=== PATIENT | female | born 1940 | race Caucasian/White ===

== ENCOUNTER 2023-12-31 15:20 | Inpatient (IN) ==
--- NOTE | 2023-12-31 15:51 | XRay Report ---
SINGLE VIEW CHEST CLINICAL HISTORY: Generalized weakness. FINDINGS: An AP, portable, upright chest radiograph is compared to study dated 04/18/2023. The cardiom ediastinal silhouette is unremarkable noting atherosclerotic calcification of the thoracic aorta. Chr onic interstitial thickening is similar to previous. There is mild bibasilar scarring/atelectasis. Th e lungs and pleural spaces are otherwise clear. No pneumothorax is seen. The skeletal structures are osteopenic. The bony thorax is grossly intact. Cholecystectomy clips are seen in the right upper quad rant. IMPRESSION: No active disease in the chest. ACT 112: Negative or not required by law. Electronically signed by: Shawn Lewis M.D. 12/31/2023 3:50 PM
--- NOTE | 2023-12-31 15:56 | Emergency Department Note ---
Impression & Plan Syncope and collapse, Acute UTI, Confusion, Closed sacral fracture ED Provider Note Provider: Bunny Pineda MD DATE OF SERVICE: 12/31/2023 CHIEF COMPLAINT: Confusion, vomiting, fall HISTORY OF PRESENT ILLNESS: Patient is a 83-year-old female past medical history of diabetes and hypertension from records presenting here via ambulance from home. Patient herself unable provide any significant history. She says she just cannot remember much and thinks she might be . Denies pain to me on exam. Nursing reports EMS states that the patient evidently called and he came home as she sounded confused on the phone and found her on the floor. She had vomited. Patient denies nausea to me currently. Nursing states they initially reports a little bit of chin pain and some pain in the tailbone. Patient herself again denying pain significantly needed some slight abrasion to the left lower chin. later arrived and states around 1:30 to 2 PM when he left her this afternoon she was playing on her iPad at the counter and seemed herself. Maybe get anxious last night according to no significant illness or complaints otherwise. Again she called him and he noted she was not making sense and came quickly to find. EMS was quickly there as well. PAST MEDICAL HISTORY: As noted above MEDICATIONS: Reviewed acute SOCIAL HISTORY: and resides at home PHYSICAL EXAM: GENERAL: alert in no acute distress on stretcher but not a good historian Head: normocephalic and atraumatic does have some dried vomitus on the right cheek EYES: No injection, discharge or icterus. PERRL, EOMI. NECK: Trachea midline. Supple without midline cervical tenderness ENT: Mucous membranes pink and moist. LUNGS: Airway patent. No retractions. Breath sounds clear HEART: Regular rate and rhythm. No chest wall tenderness ABDOMEN: Soft and non-tender, without guarding or rebound. No flank pain SKIN: Acyanotic, warm, dry, without rashes EXTREMITIES: Without swelling, tenderness or deformity other than some contusion to the left middle finger. NEUROLOGICAL: No focal deficits. Occasionally a slight resting tremor. No aphasia. No facial droop or slurred speech. Normal strength and tone in the extremities. Sensation to gross touch normal. EK bpm normal sinus rhythm. No acute ST segment elevation or depression with a QTc of 452. Some artifact in V3 and V4. CONTINUOUS CARDIAC MONITORING: was ordered and showed a heart rate of 60s to 80s bpm in normal sinus rhythm GCS 15. Patient's laboratory studies and imaging reviewed. Differential includes Infection, dehydration, metabolic abnormality, hypo/hyperglycemia, electrolyte disturbance, anemia, hypoxia, cardiac sources, intracerebral event, toxicologic, neurologic, as well as other pathologies. IMPRESSION/MEDICAL DECISION MAKING: Patient not a good historian evidently suffered some kind of fall but no obvious significant trauma on exam other than a slight abrasion to left chin. No obvious facial instability or midline cervical tenderness. Will obtain broad CT scans given possibility of fall and her confusion. Patient is also newly confused according to . Afebrile here however and not in any distress. Seems to be moving all extremities without focal deficit. Some contusion and abrasion to the right middle finger and x-rays obtained. Will obtain head CT but lower suspicion for CVA. Infectious and metabolic workup will be pursued. Chest x-ray per radiology without findings of pneumothorax or pneumonia. 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 No evidence of hand fracture with subluxation of the TMJ but the patient does not have exam and pain here and I doubt fracture dislocation. Blood work without significant anemia but a leukocytosis of 15.2. No significant electrolyte and no signs of renal dysfunction. Procalcitonin not elevated. Straight cath urine obtained to exclude UTI. Urinalysis concerning for infection. Discussed with pharmacy given allergy profile. Given severe penicillin allergy & unable confirm she tolerate cephalosporins again a dose of Bactrim here. Discussed with the patient and they agree with the plan to stay for further evaluation given her confusion and syncope today. Hospitalist contacted. DIAGNOSIS: Confusion, syncope, acute UTI, close sacral fracture. DISPOSITION: Hospitalist will evaluate Past Med/Surg History Surgical History History of cholecystectomy Family History Mother Hearing loss Father Heart disease Other No family history of allergies No family history of bleeding disorder Denies family history of Cancer Hypertension Stroke Asthma Social History Smoking Status: Former smoker Tobacco Type: Cigarettes packs per day: 1; Do You Dip or Chew Tobacco: No; Hx Alcohol Use: No Hx Substance Use: No Preferred Language: Malian Communication Ability: Effective marital status: Current Living Situation: Spouse current occupational status: retired How many Children do You have: 2 Feels Safe at Home: Yes Allergies Allergies Allergy/AdvReac Type Severity Reaction Status Date / Time Penicillins Allergy Severe EDEMA OF Verified 12/31/23 18:04 AIRWAY, HIVES [id number] Reductase AdvReac Intermediate MUSCLE Verified 12/31/23 18:04 Inhibitor PAIN/CRAMPS Home Meds Home Medications Medication Instructions Recorded Confirmed metformin 1,000 mg tablet 1,000 mg PO BIDM 08/29/21 12/31/23 escitalopram oxalate 10 mg tablet 10 mg PO QAM 10/19/21 12/31/23 levothyroxine 50 mcg tablet 50 mcg PO DAILYBB 10/19/21 12/31/23 lisinopril 5 mg tablet 5 mg PO QAM 10/19/21 12/31/23 omeprazole 20 mg capsule,delayed 20 mg PO DAILYBB 10/19/21 12/31/23 release vitamins A,C,C-wxai-zppaem 2,148 2 tab PO QDL 10/19/21 12/31/23 mcg-113 mg-45 mg-17.4 mg tablet (PreserVision AREDS) repaglinide 2 mg tablet See Rx Instructions .Route .COMPLEX 04/18/23 12/31/23 diclofenac sodium 1 % topical gel 4 g topical BID PRN PAIN, AFFECTED 12/31/23 12/31/23 AREA dulaglutide 1.5 mg/0.5 mL 1.5 mg subcut WK 12/31/23 12/31/23 subcutaneous pen injector (Trulicity) insulin degludec 100 unit/mL (3 28 unit subcut QAM 12/31/23 12/31/23 mL) subcutaneous pen (Tresiba FlexTouch U-100 insulin) lorazepam 0.5 mg tablet 0.5 mg PO BID ANXIETY 12/31/23 12/31/23 nitroglycerin 0.4 mg sublingual 0.4 mg sublingual DIRECTED PRN 12/31/23 12/31/23 tablet (Nitrostat) CHEST PAIN/SEVERE REFLUX pioglitazone 15 mg tablet 15 mg PO QAM 12/31/23 12/31/23 Results & Data (ED) Vital Signs Vital Signs - 24 hr 12/31/23 15:33 12/31/23 15:33 12/31/23 15:37 Temperature 36.5 C Temperature Source Oral Pulse Rate 74 73 71 Pulse Rate from SpO2 Sensor 73 Pulse Rhythm Regular Pulse Strength Normal Respiratory Rate 20 25 H Respiratory Effort / Characteristics Non-Labored Spontaneous Respiratory Depth Normal Respiratory Pattern Regular Blood Pressure 170/77 H Blood Pressure Mean 108 Blood Pressure Position Semi-fowlers Pulse Oximetry 98 98 Oxygen Delivery Method Room Air Sepsis Recent Fever Within 48 Hours No Sepsis New/Unexplained Change in Mental Status No Sepsis Action Taken by Nursing No Action Required 12/31/23 15:39 12/31/23 16:00 12/31/23 16:00 Temperature Temperature Source Pulse Rate 72 Pulse Rate from SpO2 Sensor 73 Pulse Rhythm Pulse Strength Respiratory Rate 23 Respiratory Effort / Characteristics Respiratory Depth Respiratory Pattern Blood Pressure 146/83 H Blood Pressure Mean 84 Blood Pressure Position Pulse Oximetry 94 92 Oxygen Delivery Method Room Air Sepsis Recent Fever Within 48 Hours Sepsis New/Unexplained Change in Mental Status Sepsis Action Taken by Nursing 12/31/23 16:30 12/31/23 16:30 12/31/23 17:31 Temperature Temperature Source Pulse Rate 79 Pulse Rate from SpO2 Sensor 77 Pulse Rhythm Pulse Strength Respiratory Rate 18 Respiratory Effort / Characteristics Respiratory Depth Respiratory Pattern Blood Pressure 155/76 H 140/74 Blood Pressure Mean 123 103 Blood Pressure Position Pulse Oximetry Oxygen Delivery Method Sepsis Recent Fever Within 48 Hours Sepsis New/Unexplained Change in Mental Status Sepsis Action Taken by Nursing 12/31/23 18:00 12/31/23 18:00 12/31/23 18:30 Temperature Temperature Source Pulse Rate 77 Pulse Rate from SpO2 Sensor 77 Pulse Rhythm Pulse Strength Respiratory Rate 21 Respiratory Effort / Characteristics Respiratory Depth Respiratory Pattern Blood Pressure 135/64 170/86 H Blood Pressure Mean 101 126 Blood Pressure Position Pulse Oximetry 93 Oxygen Delivery Method Sepsis Recent Fever Within 48 Hours Sepsis New/Unexplained Change in Mental Status Sepsis Action Taken by Nursing 12/31/23 18:30 12/31/23 19:00 12/31/23 19:27 Temperature Temperature Source Pulse Rate 83 79 71 Pulse Rate from SpO2 Sensor 83 79 Pulse Rhythm Pulse Strength Respiratory Rate 16 25 H Respiratory Effort / Characteristics Respiratory Depth Respiratory Pattern Blood Pressure Blood Pressure Mean Blood Pressure Position Pulse Oximetry Oxygen Delivery Method Sepsis Recent Fever Within 48 Hours Sepsis New/Unexplained Change in Mental Status Sepsis Action Taken by Nursing 12/31/23 19:27 12/31/23 19:27 12/31/23 19:30 Temperature Temperature Source Pulse Rate 72 75 Pulse Rate from SpO2 Sensor 72 72 Pulse Rhythm Pulse Strength Respiratory Rate 36 H 34 H Respiratory Effort / Characteristics Respiratory Depth Respiratory Pattern Blood Pressure 185/94 H Blood Pressure Mean 114 Blood Pressure Position Pulse Oximetry 100 98 Oxygen Delivery Method Sepsis Recent Fever Within 48 Hours Sepsis New/Unexplained Change in Mental Status Sepsis Action Taken by Nursing 12/31/23 20:00 12/31/23 20:00 12/31/23 20:30 Temperature Temperature Source Pulse Rate 78 Pulse Rate from SpO2 Sensor 77 Pulse Rhythm Pulse Strength Respiratory Rate 26 H Respiratory Effort / Characteristics Respiratory Depth Respiratory Pattern Blood Pressure 166/88 H 150/85 H Blood Pressure Mean 131 112 Blood Pressure Position Pulse Oximetry 95 Oxygen Delivery Method Sepsis Recent Fever Within 48 Hours Sepsis New/Unexplained Change in Mental Status Sepsis Action Taken by Nursing 12/31/23 20:30 12/31/23 21:00 12/31/23 21:00 Temperature Temperature Source Pulse Rate 83 81 Pulse Rate from SpO2 Sensor 83 82 Pulse Rhythm Pulse Strength Respiratory Rate 25 H 20 Respiratory Effort / Characteristics Respiratory Depth Respiratory Pattern Blood Pressure 133/80 Blood Pressure Mean 89 Blood Pressure Position Pulse Oximetry 96 98 Oxygen Delivery Method Room Air Sepsis Recent Fever Within 48 Hours Sepsis New/Unexplained Change in Mental Status Sepsis Action Taken by Nursing 12/31/23 21:30 12/31/23 21:30 Temperature Temperature Source Pulse Rate 86 Pulse Rate from SpO2 Sensor 86 Pulse Rhythm Pulse Strength Respiratory Rate 16 Respiratory Effort / Characteristics Respiratory Depth Respiratory Pattern Blood Pressure 152/84 H Blood Pressure Mean 86 Blood Pressure Position Pulse Oximetry 98 Oxygen Delivery Method Room Air Sepsis Recent Fever Within 48 Hours Sepsis New/Unexplained Change in Mental Status Sepsis Action Taken by Nursing Laboratory Data 12/31/23 16:10 12/31/23 16:10 Lab Results 12/31/23 12/31/23 12/31/23 Range/Units 16:10 16:17 16:22 WBC 15.29 H (4.8-10.8) K/ul RBC 4.69 (4.20-5.40) M/uL Hgb 13.7 (12.0-16.0) g/dl POC Hgb 14.6 (12.0-16.0) g/dl Hct 41.0 (37.0-47.0) % POC Hct 43 (37-47) % MCV 87.4 (80.0-100.0) fL MCH 29.2 (25.0-34.0) pg MCHC 33.4 (32.0-36.0) g/dL RDW Std Deviation 41.0 (36.4-46.3) fL RDW Coeff of Delfina 13.0 (11.5-14.5) % Plt Count 354 (130-400) K/uL MPV 9.9 (9.4-12.4) fL Immature Gran % (Auto) 1.0 % Neut % (Auto) 86.1 % Lymph % (Auto) 7.7 % [place] % (Auto) 4.8 % Eos % (Auto) 0.1 % Baso % (Auto) 0.3 % Neut # (Auto) 13.14 H (1.40-6.50) K/uL Lymph # (Auto) 1.18 L (1.20-3.40) K/uL [place] # (Auto) 0.74 H (0.11-0.59) K/uL Eos # (Auto) 0.02 (0.00-0.50) K/uL Baso # (Auto) 0.05 (0.00-0.20) K/uL Immature Gran # (Auto) 0.16 (0.01-0.20) K/uL PT 10.9 (9.0-12.0) Seconds INR 1.0 (0.9-1.1) POC Sodium 137 (135-144) mmol/L Sodium 136 (136-145) mmol/L POC Potassium 4.0 (3.3-5.0) mmol/L Potassium 3.9 (3.5-5.1) mmol/L POC Chloride 99 L (101-112) mmol/L Chloride 101 (98-107) mmol/L Carbon Dioxide 27 (21-32) mmol/L POC Total CO2 26 (24-31) mmol/L Anion Gap 8 (3-11) POC Anion Gap 17.0 (16-25) mmol/L POC BUN 17 (7-18) mg/dl BUN 17 (6-23) mg/dl Creatinine 0.61 (0.6-1.2) mg/dl POC Creatinine 0.5 L (0.6-1.3) mg/dl Est Cr Clr Drug Dosing 65.8 ml/min Est GFR ( Amer) 97.8 ml/min Est GFR (Non-Af Amer) 84.4 ml/min BUN/Creatinine Ratio 27.9 H (10-20) Glucose 191 H (70-99(Fasting)) mg/dl POC Glucose (other) 186 H (70-99) mg/dl Lactate 1.9 (0.4-2.0) mmol/L Calcium 9.5 (8.6-10.3) mg/dl POC Ioniz Calcium Martha 1.19 (1.12-1.32) mmol/l Magnesium 1.7 (1.7-2.4) mg/dl Total Bilirubin 0.6 (0.2-1.0) mg/dl AST 15 (13-39) U/L ALT 11 (7-52) U/L Alkaline Phosphatase 53 (34-104) U/L Total Creatine Kinase 53 (26-192) U/L Troponin I High Sens 5.5 (0-14) pg/ml Total Protein 7.1 (6.0-8.3) gm/dl Albumin 4.1 (3.4-5.0) gm/dl Globulin 3.0 (2.5-4.0) gm/dl Albumin/Globulin Ratio 1.4 (0.9-2) Procalcitonin < 0.02 (0-0.5) ng/ml TSH 1.615 (0.300-4.500) uIu/ml Urine Color Urine Appearance (Clear) Urine pH (4.5-7.5) Ur Specific [place] (1.000-1.030) Urine Protein (Negative) Urine Glucose (UA) (Negative) Urine Ketones (Negative) Urine Blood (Negative) Urine Nitrite (Negative) Urine Bilirubin (Negative) Urine Urobilinogen (Negative) Ur Leukocyte Esterase (Negative) Urine WBC (Auto) (0-5) /hpf Urine RBC (Auto) (0-2) /hpf U Hyaline Cast (Auto) (0-2) /lpf U Epithel Cells (Auto) (0-2) /hpf Urine Bacteria (Auto) (None Seen) Adenovirus (PCR) (NotDetected) B. pertussis DNA (PCR) (NotDetected) B.parapertussis DNA PCR (NotDetected) C. pneumoniae DNA (PCR) (NotDetected) Coronavirus OC43 (PCR) (NotDetected) Coronavirus HKU1 (PCR) (NotDetected) Coronavirus 229E (PCR) (NotDetected) SARS-CoV-2 (PCR) (NotDetected) Coronavirus NL63 (PCR) (NotDetected) Human Metapneumovir PCR (NotDetected) Influenza Type A (PCR) (NotDetected) Influenza Type B (PCR) (NotDetected) M. pneumoniae (PCR) (NotDetected) Parainfluenza 1 (PCR) (NotDetected) Parainfluenza 2 (PCR) (NotDetected) Parainfluenza 3 (PCR) (NotDetected) Parainfluenza 4 (PCR) (NotDetected) RSV (PCR) (NotDetected) Entero/Rhino (PCR) (NotDetected) 12/31/23 12/31/23 12/31/23 Range/Units 17:32 18:56 19:38 WBC (4.8-10.8) K/ul RBC (4.20-5.40) M/uL Hgb (12.0-16.0) g/dl POC Hgb (12.0-16.0) g/dl Hct (37.0-47.0) % POC Hct (37-47) % MCV (80.0-100.0) fL MCH (25.0-34.0) pg MCHC (32.0-36.0) g/dL RDW Std Deviation (36.4-46.3) fL RDW Coeff of Delfina (11.5-14.5) % Plt Count (130-400) K/uL MPV (9.4-12.4) fL Immature Gran % (Auto) % Neut % (Auto) % Lymph % (Auto) % [place] % (Auto) % Eos % (Auto) % Baso % (Auto) % Neut # (Auto) (1.40-6.50) K/uL Lymph # (Auto) (1.20-3.40) K/uL [place] # (Auto) (0.11-0.59) K/uL Eos # (Auto) (0.00-0.50) K/uL Baso # (Auto) (0.00-0.20) K/uL Immature Gran # (Auto) (0.01-0.20) K/uL PT (9.0-12.0) Seconds INR (0.9-1.1) POC Sodium (135-144) mmol/L Sodium (136-145) mmol/L POC Potassium (3.3-5.0) mmol/L Potassium (3.5-5.1) mmol/L POC Chloride (101-112) mmol/L Chloride (98-107) mmol/L Carbon Dioxide (21-32) mmol/L POC Total CO2 (24-31) mmol/L Anion Gap (3-11) POC Anion Gap (16-25) mmol/L POC BUN (7-18) mg/dl BUN (6-23) mg/dl Creatinine (0.6-1.2) mg/dl POC Creatinine (0.6-1.3) mg/dl Est Cr Clr Drug Dosing ml/min Est GFR ( Amer) ml/min Est GFR (Non-Af Amer) ml/min BUN/Creatinine Ratio (10-20) Glucose (70-99(Fasting)) mg/dl POC Glucose (other) (70-99) mg/dl Lactate (0.4-2.0) mmol/L Calcium (8.6-10.3) mg/dl POC Ioniz Calcium Martha (1.12-1.32) mmol/l Magnesium (1.7-2.4) mg/dl Total Bilirubin (0.2-1.0) mg/dl AST (13-39) U/L ALT (7-52) U/L Alkaline Phosphatase (34-104) U/L Total Creatine Kinase (26-192) U/L Troponin I High Sens Cancelled (0-14) pg/ml Total Protein (6.0-8.3) gm/dl Albumin (3.4-5.0) gm/dl Globulin (2.5-4.0) gm/dl Albumin/Globulin Ratio (0.9-2) Procalcitonin (0-0.5) ng/ml TSH (0.300-4.500) uIu/ml Urine Color Yellow Urine Appearance Clear (Clear) Urine pH 7.5 (4.5-7.5) Ur Specific [place] 1.036 H (1.000-1.030) Urine Protein 2+ H (Negative) Urine Glucose (UA) 2+ H (Negative) Urine Ketones 1+ H (Negative) Urine Blood Negative (Negative) Urine Nitrite Negative (Negative) Urine Bilirubin Negative (Negative) Urine Urobilinogen Negative (Negative) Ur Leukocyte Esterase Trace H (Negative) Urine WBC (Auto) 11-20 H (0-5) /hpf Urine RBC (Auto) 6-10 H (0-2) /hpf U Hyaline Cast (Auto) 0-2 (0-2) /lpf U Epithel Cells (Auto) 0-2 (0-2) /hpf Urine Bacteria (Auto) 2+ H (None Seen) Adenovirus (PCR) Not Detected (NotDetected) B. pertussis DNA (PCR) Not Detected (NotDetected) B.parapertussis DNA PCR Not Detected (NotDetected) C. pneumoniae DNA (PCR) Not Detected (NotDetected) Coronavirus OC43 (PCR) Not Detected (NotDetected) Coronavirus HKU1 (PCR) Not Detected (NotDetected) Coronavirus 229E (PCR) Not Detected (NotDetected) SARS-CoV-2 (PCR) Not Detected (NotDetected) Coronavirus NL63 (PCR) Not Detected (NotDetected) Human Metapneumovir PCR Not Detected (NotDetected) Influenza Type A (PCR) Not Detected (NotDetected) Influenza Type B (PCR) Not Detected (NotDetected) M. pneumoniae (PCR) Not Detected (NotDetected) Parainfluenza 1 (PCR) Not Detected (NotDetected) Parainfluenza 2 (PCR) Not Detected (NotDetected) Parainfluenza 3 (PCR) Not Detected (NotDetected) Parainfluenza 4 (PCR) Not Detected (NotDetected) RSV (PCR) Not Detected (NotDetected) Entero/Rhino (PCR) Not Detected (NotDetected) 12/31/23 Range/Units 21:19 WBC (4.8-10.8) K/ul RBC (4.20-5.40) M/uL Hgb (12.0-16.0) g/dl POC Hgb (12.0-16.0) g/dl Hct (37.0-47.0) % POC Hct (37-47) % MCV (80.0-100.0) fL MCH (25.0-34.0) pg MCHC (32.0-36.0) g/dL RDW Std Deviation (36.4-46.3) fL RDW Coeff of Delfina (11.5-14.5) % Plt Count (130-400) K/uL MPV (9.4-12.4) fL Immature Gran % (Auto) % Neut % (Auto) % Lymph % (Auto) % [place] % (Auto) % Eos % (Auto) % Baso % (Auto) % Neut # (Auto) (1.40-6.50) K/uL Lymph # (Auto) (1.20-3.40) K/uL [place] # (Auto) (0.11-0.59) K/uL Eos # (Auto) (0.00-0.50) K/uL Baso # (Auto) (0.00-0.20) K/uL Immature Gran # (Auto) (0.01-0.20) K/uL PT (9.0-12.0) Seconds INR (0.9-1.1) POC Sodium (135-144) mmol/L Sodium (136-145) mmol/L POC Potassium (3.3-5.0) mmol/L Potassium (3.5-5.1) mmol/L POC Chloride (101-112) mmol/L Chloride (98-107) mmol/L Carbon Dioxide (21-32) mmol/L POC Total CO2 (24-31) mmol/L Anion Gap (3-11) POC Anion Gap (16-25) mmol/L POC BUN (7-18) mg/dl BUN (6-23) mg/dl Creatinine (0.6-1.2) mg/dl POC Creatinine (0.6-1.3) mg/dl Est Cr Clr Drug Dosing ml/min Est GFR ( Amer) ml/min Est GFR (Non-Af Amer) ml/min BUN/Creatinine Ratio (10-20) Glucose (70-99(Fasting)) mg/dl POC Glucose (other) (70-99) mg/dl Lactate (0.4-2.0) mmol/L Calcium (8.6-10.3) mg/dl POC Ioniz Calcium Martha (1.12-1.32) mmol/l Magnesium (1.7-2.4) mg/dl Total Bilirubin (0.2-1.0) mg/dl AST (13-39) U/L ALT (7-52) U/L Alkaline Phosphatase (34-104) U/L Total Creatine Kinase (26-192) U/L Troponin I High Sens 7.4 (0-14) pg/ml Total Protein (6.0-8.3) gm/dl Albumin (3.4-5.0) gm/dl Globulin (2.5-4.0) gm/dl Albumin/Globulin Ratio (0.9-2) Procalcitonin (0-0.5) ng/ml TSH (0.300-4.500) uIu/ml Urine Color Urine Appearance (Clear) Urine pH (4.5-7.5) Ur Specific [place] (1.000-1.030) Urine Protein (Negative) Urine Glucose (UA) (Negative) Urine Ketones (Negative) Urine Blood (Negative) Urine Nitrite (Negative) Urine Bilirubin (Negative) Urine Urobilinogen (Negative) Ur Leukocyte Esterase (Negative) Urine WBC (Auto) (0-5) /hpf Urine RBC (Auto) (0-2) /hpf U Hyaline Cast (Auto) (0-2) /lpf U Epithel Cells (Auto) (0-2) /hpf Urine Bacteria (Auto) (None Seen) Adenovirus (PCR) (NotDetected) B. pertussis DNA (PCR) (NotDetected) B.parapertussis DNA PCR (NotDetected) C. pneumoniae DNA (PCR) (NotDetected) Coronavirus OC43 (PCR) (NotDetected) Coronavirus HKU1 (PCR) (NotDetected) Coronavirus 229E (PCR) (NotDetected) SARS-CoV-2 (PCR) (NotDetected) Coronavirus NL63 (PCR) (NotDetected) Human Metapneumovir PCR (NotDetected) Influenza Type A (PCR) (NotDetected) Influenza Type B (PCR) (NotDetected) M. pneumoniae (PCR) (NotDetected) Parainfluenza 1 (PCR) (NotDetected) Parainfluenza 2 (PCR) (NotDetected) Parainfluenza 3 (PCR) (NotDetected) Parainfluenza 4 (PCR) (NotDetected) RSV (PCR) (NotDetected) Entero/Rhino (PCR) (NotDetected) Administered Medications Discontinued Medications Sodium Chloride (Nss) 1,000 mls @ 999 mls/hr IV .Q1H1M ONE Stop: 12/31/23 17:58 Last Infusion: 12/31/23 20:56 Dose: Infused Documented By: Admin: 12/31/23 18:24 Dose: 999 mls/hr Documented By: JANETH Ioversol (Optiray 320 100ml) 92 ml IV ONCE ONE Stop: 12/31/23 16:48 Last Admin: 12/31/23 16:47 Dose: 92 ml Documented By: ROSA Morphine Sulfate (Morphine Sulfate 2 Mg/Ml Carp) 2 mg IV NOW STA Stop: 12/31/23 20:13 Last Admin: 12/31/23 20:42 Dose: 2 mg Documented By: JANETH Ondansetron HCl (Ondansetron Inj 2 Mg/Ml 2 Ml Vial) 4 mg IV NOW STA Stop: 12/31/23 15:40 Last Admin: 12/31/23 16:36 Dose: 4 mg Documented By: JANETH Trimethoprim/Sulfamethoxazole (Sulfamethoxazole/Trimethoprim Ds 800/160mg Tab) 1 tab PO NOW ONE Stop: 12/31/23 18:57 Last Admin: 12/31/23 20:41 Dose: 1 tab Documented By: JANETH Imaging Data Radiologist's Impression: Abdomen/Pelvis CT 12/31/23 15:[address] WITH CONTRAST, ABDOMEN AND PELVIS CT WITH INTRAVENOUS CONTRAST CT DOSE: 3322.78 mGy.cm HISTORY: fall, ams, vomiting, back pain TECHNIQUE: Multiaxial CT images of the chest, abdomen, and pelvis were performed following the intravenous administration of contrast. A dose lowering technique was utilized adhering to the principles of ALARA. COMPARISON: Abdomen and pelvis CT 10/19/2021. FINDINGS: Chest CT: No acute fractures within the chest. The central airways are patent. No pneumothorax. No pleural effusions. Emphysema. There is a 3 mm subpleural nodule within the left upper lobe on image 94. Mild dependent changes seen at the lung bases. Small nodular densities at the lung apices favor scarring. Normal thyroid gland. Normal esophagus. No mediastinal hematoma or lymphadenopathy. The heart is normal in size. No pericardial effusion. Focal mild aneurysmal dilatation of the distal descending thoracic aorta on image 154 measuring 3.6 cm. No evidence for aortic dissection. The central pulmonary arteries are patent. Moderate coronary artery calcifications are noted. Abdomen/pelvis CT: No pneumoperitoneum. No pneumatosis. Mild focal deformity at the anterior cortex of S3 which extends into the left sacral wing best seen on image 257 consistent with an acute nondisplaced sacral fracture. There is a 2 cm duodenal diverticulum. Cholecystectomy. The liver, spleen, adrenal glands, and left kidney are unremarkable. No hydronephrosis. 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 There is a 5 mm lipoma within the pancreatic head. The main portal vein is patent. Calcified plaque within the normal caliber abdominal aorta. No retroperitoneal hematoma or lymphadenopathy. The bladder is unremarkable. There is a calcified subserosal 4 cm fibroid. Colonic diverticulosis. No evidence for acute diverticulitis. No bowel wall thickening or obstruction. Normal appendix. IMPRESSION: 1. No acute traumatic process within the chest. 2. An acute nondisplaced sacral fracture at the S3 level. 3. 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 4. Emphysema. 5. Additional findings as described above. ACT 112: Negative or not required by law. Electronically signed by: Jamaal Alexander M.D. 12/31/2023 5:[address] 12/31/23 15:39 CT SCAN OF THE CERVICAL SPINE CLINICAL HISTORY: Fall. COMPARISON STUDY: No priors. TECHNIQUE: CT scan of the cervical spine is performed from the skull base to the upper thoracic spine. Images are reviewed in the axial, sagittal, and coronal planes. IV contrast was not administered for this examination. A dose lowering technique was utilized adhering to the principles of ALARA. FINDINGS: Skeletal structures: The skeletal structures are osteopenia. There is no evidence of fracture or subluxation involving the cervical spine. Vertebral body height and alignment are maintained. There is straightening of the cervical lordosis. Anterior osteophytes are seen throughout the The odontoid process and lateral masses are intact. The atlantoaxial articulation is preserved noting productive degenerative change. The spinous processes appear intact. There is mild multilevel facet arthropathy. Intervertebral discs: There is moderate disc space narrowing at C4-C5, C5-C6, and C6-C7. Mild narrowing is seen at the remaining cervical levels. Central canal: Posterior disc osteophyte complexes at C5-C6 and C6-C7 likely contribute to acquired compromise of the central canal. Soft tissues: The prevertebral and paraspinous soft tissues are within normal limits. There is atherosclerotic calcification of the carotid bulbs. Calvarium: The visualized calvarium at the skull base appears intact. Brain parenchyma: Partially visualized brain parenchyma at the skull base is within normal limits. Sinuses and mastoids: The visualized paranasal sinuses are clear. The mastoid air cells are well pneumatized. Lung apices: Emphysematous change is seen at the apices. Apical lung parenchymal is otherwise clear as imaged. IMPRESSION: 1. There is no evidence of cervical spine fracture or subluxation. 2. Osteopenia and spondylotic change as above. ACT 112: Negative or not required by law. Electronically signed by: Shawn Lewis M.D. 12/31/2023 5:[address] 12/31/23 15:[address] WITH CONTRAST, ABDOMEN AND PELVIS CT WITH INTRAVENOUS CONTRAST CT DOSE: 3322.78 mGy.cm HISTORY: fall, ams, vomiting, back pain TECHNIQUE: Multiaxial CT images of the chest, abdomen, and pelvis were performed following the intravenous administration of contrast. A dose lowering technique was utilized adhering to the principles of ALARA. COMPARISON: Abdomen and pelvis CT 10/19/2021. FINDINGS: Chest CT: No acute fractures within the chest. The central airways are patent. No pneumothorax. No pleural effusions. Emphysema. There is a 3 mm subpleural nodule within the left upper lobe on image 94. Mild dependent changes seen at the lung bases. Small nodular densities at the lung apices favor scarring. Normal thyroid gland. Normal esophagus. No mediastinal hematoma or lymphadenopathy. The heart is normal in size. No pericardial effusion. Focal mild aneurysmal dilatation of the distal descending thoracic aorta on image 154 measuring 3.6 cm. No evidence for aortic dissection. The central pulmonary arteries are patent. Moderate coronary artery calcifications are noted. Abdomen/pelvis CT: No pneumoperitoneum. No pneumatosis. Mild focal deformity at the anterior cortex of S3 which extends into the left sacral wing best seen on image 257 consistent with an acute nondisplaced sacral fracture. There is a 2 cm duodenal diverticulum. Cholecystectomy. The liver, spleen, adrenal glands, and left kidney are unremarkable. No hydronephrosis. 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 There is a 5 mm lipoma within the pancreatic head. The main portal vein is patent. Calcified plaque within the normal caliber abdominal aorta. No retroperitoneal hematoma or lymphadenopathy. The bladder is unremarkable. There is a calcified subserosal 4 cm fibroid. Colonic diverticulosis. No evidence for acute diverticulitis. No bowel wall thickening or obstruction. Normal appendix. IMPRESSION: 1. No acute traumatic process within the chest. 2. An acute nondisplaced sacral fracture at the S3 level. 3. 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 4. Emphysema. 5. Additional findings as described above. ACT 112: Negative or not required by law. Electronically signed by: Jamaal Alexander M.D. 12/31/2023 5:20 PM Chest X-Ray 12/31/23 15:39 SINGLE VIEW CHEST CLINICAL HISTORY: Generalized weakness. FINDINGS: An AP, portable, upright chest radiograph is compared to study dated 04/18/2023. The cardiomediastinal silhouette is unremarkable noting atherosclerotic calcification of the thoracic aorta. Chronic interstitial thickening is similar to previous. There is mild bibasilar scarring/atelectasis. The lungs and pleural spaces are otherwise clear. No pneumothorax is seen. The skeletal structures are osteopenic. The bony thorax is grossly intact. Cholecystectomy clips are seen in the right upper quadrant. IMPRESSION: No active disease in the chest. ACT 112: Negative or not required by law. Electronically signed by: Shawn Lewis M.D. 12/31/2023 3:[address] 12/31/23 15:39 CT SCAN OF THE FACIAL BONES WITHOUT IV CONTRAST CLINICAL HISTORY: Fall. Facial injury. COMPARISON STUDY: No priors. TECHNIQUE: High-resolution CT scan of the facial bones is performed. Images are reviewed in the axial, sagittal, and coronal planes. IV contrast was not administered for this examination. A dose lowering technique was utilized adhering to the principles of ALARA. There is streak artifact from bilateral earrings. FINDINGS: The skeletal structures are osteopenic. There is no evidence of facial bone fracture. The bony orbits are intact and the orbital contents are within normal limits noting bilateral ocular lens implants. The zygomatic arches, nasal bones, and pterygoid plates are preserved. There is rightward deviation of the bony nasal septum. The maxilla and mandible are intact. Degenerative change is noted at the temporomandibular joints. There is anterior subluxation of the left mandibular condyle. There are no layering blood products within the paranasal sinuses. Trace mucosal thickening is noted in the right maxillary antrum. The remaining paranasal sinuses are clear. There is trace right mastoid effusion. The left mastoid air cells are well pneumatized. The visualized calvarium and upper cervical spine are maintained. Partially imaged brain parenchyma is within normal limits. IMPRESSION: 1. There is no evidence of facial bone fracture. 2. There is anterior subluxation of the left temporomandibular joint which is asymmetric to the right. Correlate clinically for evidence of left TMJ dislocation/injury. ACT 112: Negative or not required by law. Electronically signed by: Shawn Lewis M.D. 12/31/2023 5:[address] 12/31/23 15:39 CT SCAN OF THE BRAIN WITHOUT IV CONTRAST CLINICAL HISTORY: Fall. COMPARISON STUDY: No priors. TECHNIQUE: Unenhanced axial CT scan of the brain is performed from the vertex to the skull base. A dose lowering technique was utilized adhering to the principles of ALARA. FINDINGS: Brain parenchyma: There is age-related involutional change noting moderate subcortical and periventricular microangiopathic disease. There is no hemorrhage, mass effect, or evidence of acute territorial ischemia by CT criteria. A chronic lacunar infarct is noted basal ganglia. Marshall-white matter differentiation is preserved. No extra-axial fluid collection is seen. Ventricles, sulci, cisterns: Prominent secondary to involutional change. Intracranial vasculature: There is atherosclerotic calcification of the cavernous carotid arteries. Calvarium: The skeletal structures are osteopenic. No depressed calvarial fracture is seen. Soft tissues: There is a scalp contusion at the posterior vertex. Sinuses and mastoids: The visualized paranasal sinuses are clear. The mastoid air cells are well pneumatized. Orbits: The bony orbits are grossly intact. There are bilateral ocular lens implants. IMPRESSION: There is no hemorrhage, mass effect, or evidence of acute territorial ischemia by CT criteria. ACT 112: Negative or not required by law. Electronically signed by: Shawn Lewis M.D. 12/31/2023 5:06 PM Hand X-Ray 12/31/23 16:06 XR hand LT min 3V routine CLINICAL HISTORY: fall, contusion middle finger COMPARISON STUDY: None. FINDINGS: No fracture or dislocation within the left hand. Soft tissues are unremarkable. No radiopaque foreign bodies. IMPRESSION: No fractures within the left hand. ACT 112: Negative or not required by law. Electronically signed by: Jamaal Alexander M.D. 12/31/2023 5:05 PM Discharge Plan Visit Data Chief Complaint: Fall Stated Complaint: FALL,VOMITING,COMFUSSED ED Provider: Bunny Pineda Discharge Problem: Syncope and collapse, Acute UTI, Confusion, Closed sacral fracture Patient Disposition: Being Evaluated by Hospitalist Forms Stand Alone Forms: [facility] Prescriptions Prescriptions: No Action metformin 1,000 mg tablet 1,000 mg PO BIDM levothyroxine 50 mcg tablet 50 mcg PO DAILYBB Rx Instructions: Take at least 30 minutes before breakfast and any other medication lisinopril 5 mg tablet 5 mg PO QAM escitalopram oxalate 10 mg Tablet 10 mg PO QAM omeprazole 20 mg Capsule,Delayed Release(Dr/Ec) 20 mg PO DAILYBB PreserVision AREDS 7,160 unit- 113 mg-100 unit Tablet 2 tab PO QDL repaglinide 2 mg tablet See Rx Instructions .ROUTE .COMPLEX Rx Instructions: TAKES 4 MG WITH BREAKFAST & SUPPER, 2 MG WITH LUNCH. or as directed pioglitazone 15 mg tablet 15 mg PO QAM lorazepam 0.5 mg tablet 0.5 mg PO BID nitroglycerin [Nitrostat] 0.4 mg Tablet, Sublingual 0.4 mg sublingual DIRECTED PRN (Reason: CHEST PAIN/SEVERE REFLUX) diclofenac sodium [Voltaren] 1 % Gel 4 g TOPICAL BID PRN (Reason: PAIN, AFFECTED AREA) insulin degludec [Tresiba FlexTouch U-100] 100 unit/mL (3 mL) insulin pen 28 unit SUBCUT QAM Trulicity 1.5 mg/0.5 mL pen injector 1.5 mg SUBCUT WK Referrals Referrals: Marcelino Mae DO [Primary Care Provider] -
[2023-12-31 16:30] LABS: iSTAT Creatinine 0.5 mg/dl (0.6-1.3); iSTAT Hemoglobin 14.6 g/dl (12.0-16.0); iSTAT Ionized Calcium 1.19 mmol/l (1.12-1.32)
--- NOTE | 2023-12-31 16:31 | Electrocardiogram Report ---
Test Reason : Blood Pressure : / mmHG Vent. Rate : 069 BPM Atrial Rate : 069 BPM P-R Int : 164 ms QRS Dur : 072 ms QT Int : 422 ms P-R-T Axes : 028 -06 044 degrees QTc Int : 452 ms Poor data quality, interpretation may be adversely affected Normal sinus rhythm Normal ECG When compared with ECG of 18-APR-2023 15:41, No significant change was found Confirmed by Kaushik Loyd ([id number]) on 12/31/2023 4:31:03 PM Referred By: Confirmed By:Kaushik Loyd
[2023-12-31] MEDS: ONDANSETRON INJ 2 MG/ML 2 ML VIAL IV STA (16:36)
[2023-12-31 16:38] LABS: Basophils # (auto) 0.05 K/uL (0.00-0.20); Basophils % (auto) 0.3 %; Eosinophils # (auto) 0.02 K/uL (0.00-0.50); Eosinophils % (auto) 0.1 %; Hemoglobin 13.7 g/dl (12.0-16.0); Immature Granulocytes # (auto) 0.16 K/uL (0.01-0.20); Lymphocytes # (auto) 1.18 K/uL (1.20-3.40); Lymphocytes % (auto) 7.7 %; Mean Corpuscular Hemoglobin 29.2 pg (25.0-34.0); Mean Corpuscular Hgb Conc 33.4 g/dL (32.0-36.0); Mean Corpuscular Volume 87.4 fL (80.0-100.0); Mean Platelet Volume 9.9 fL (9.4-12.4); Monocytes # (auto) 0.74 K/uL (0.11-0.59); Monocytes % (auto) 4.8 %; Neutrophils # (auto) 13.14 K/uL (1.40-6.50); Neutrophils % (auto) 86.1 %; Platelet Count 354 K/uL (130-400); Red Blood Count 4.69 M/uL (4.20-5.40); White Blood Count 15.29 K/ul (4.8-10.8)
[2023-12-31] MEDS: OPTIRAY 320 100ml IV ONE (16:47)
[2023-12-31 16:54] LABS: Albumin Globulin Ratio 1.4 (0.9-2); Albumin Level 4.1 gm/dl (3.4-5.0); BUN Creatinine Ratio 27.9 (10-20); Bilirubin,Total 0.6 mg/dl (0.2-1.0); Calcium 9.5 mg/dl (8.6-10.3); Creatinine Clr Calc Pharmacy 65.8 ml/min; Est GFR (African American) 97.8 ml/min; Est GFR (Non-African American) 84.4 ml/min; Magnesium 1.7 mg/dl (1.7-2.4); Potassium 3.9 mmol/L (3.5-5.1); Total Protein 7.1 gm/dl (6.0-8.3)
[2023-12-31 17:00] LABS: Troponin I High Sensitivity 5.5 pg/ml (0-14)
[2023-12-31 17:02] LABS: Prothrombin Time 10.9 Seconds (9.0-12.0)
--- NOTE | 2023-12-31 17:06 | XRay Report ---
XR hand LT min 3V routine CLINICAL HISTORY: fall, contusion middle finger COMPARISON STUDY: None. FINDINGS: No fracture or dislocation within the left hand. Soft tissues are unremarkable. No radiopaq ue foreign bodies. IMPRESSION: No fractures within the left hand. ACT 112: Negative or not required by law. Electronically signed by: Jamaal Alexander M.D. 12/31/2023 5:05 PM
--- NOTE | 2023-12-31 17:07 | CT Scan Report ---
CT SCAN OF THE BRAIN WITHOUT IV CONTRAST CLINICAL HISTORY: Fall. COMPARISON STUDY: No priors. TECHNIQUE: Unenhanced axial CT scan of the brain is performed from the vertex to the skull base. A do se lowering technique was utilized adhering to the principles of ALARA. FINDINGS: Brain parenchyma: There is age-related involutional change noting moderate subcortical and periventri cular microangiopathic disease. There is no hemorrhage, mass effect, or evidence of acute territorial ischemia by CT criteria. A chronic lacunar infarct is noted basal ganglia. Marshall-white matter differe ntiation is preserved. No extra-axial fluid collection is seen. Ventricles, sulci, cisterns: Prominent secondary to involutional change. Intracranial vasculature: There is atherosclerotic calcification of the cavernous carotid arteries. Calvarium: The skeletal structures are osteopenic. No depressed calvarial fracture is seen. Soft tissues: There is a scalp contusion at the posterior vertex. Sinuses and mastoids: The visualized paranasal sinuses are clear. The mastoid air cells are well pneu matized. Orbits: The bony orbits are grossly intact. There are bilateral ocular lens implants. IMPRESSION: There is no hemorrhage, mass effect, or evidence of acute territorial ischemia by CT salud grimes. ACT 112: Negative or not required by law. Electronically signed by: Shawn Lewis M.D. 12/31/2023 5:06 PM
[2023-12-31 17:09] LABS: Thyroid Stimulating Hormone 1.615 uIu/ml (0.300-4.500)
--- NOTE | 2023-12-31 17:11 | CT Scan Report ---
CT SCAN OF THE CERVICAL SPINE CLINICAL HISTORY: Fall. COMPARISON STUDY: No priors. TECHNIQUE: CT scan of the cervical spine is performed from the skull base to the upper thoracic spine . Images are reviewed in the axial, sagittal, and coronal planes. IV contrast was not administered fo r this examination. A dose lowering technique was utilized adhering to the principles of ALARA. FINDINGS: Skeletal structures: The skeletal structures are osteopenia. There is no evidence of fracture or subl uxation involving the cervical spine. Vertebral body height and alignment are maintained. There is st raightening of the cervical lordosis. Anterior osteophytes are seen throughout the The odontoid proce ss and lateral masses are intact. The atlantoaxial articulation is preserved noting productive degene rative change. The spinous processes appear intact. There is mild multilevel facet arthropathy. Intervertebral discs: There is moderate disc space narrowing at C4-C5, C5-C6, and C6-C7. Mild narrowi ng is seen at the remaining cervical levels. Central canal: Posterior disc osteophyte complexes at C5-C6 and C6-C7 likely contribute to acquired c ompromise of the central canal. Soft tissues: The prevertebral and paraspinous soft tissues are within normal limits. There is athero sclerotic calcification of the carotid bulbs. Calvarium: The visualized calvarium at the skull base appears intact. Brain parenchyma: Partially visualized brain parenchyma at the skull base is within normal limits. Sinuses and mastoids: The visualized paranasal sinuses are clear. The mastoid air cells are well pneu matized. Lung apices: Emphysematous change is seen at the apices. Apical lung parenchymal is otherwise clear a s imaged. IMPRESSION: 1. There is no evidence of cervical spine fracture or subluxation. 2. Osteopenia and spondylotic change as above. ACT 112: Negative or not required by law. Electronically signed by: Shawn Lewis M.D. 12/31/2023 5:10 PM
--- NOTE | 2023-12-31 17:17 | CT Scan Report ---
CT SCAN OF THE FACIAL BONES WITHOUT IV CONTRAST CLINICAL HISTORY: Fall. Facial injury. COMPARISON STUDY: No priors. TECHNIQUE: High-resolution CT scan of the facial bones is performed. Images are reviewed in the axia l, sagittal, and coronal planes. IV contrast was not administered for this examination. A dose lower ing technique was utilized adhering to the principles of ALARA. There is streak artifact from bilater al earrings. FINDINGS: The skeletal structures are osteopenic. There is no evidence of facial bone fracture. The b chasity orbits are intact and the orbital contents are within normal limits noting bilateral ocular lens implants. The zygomatic arches, nasal bones, and pterygoid plates are preserved. There is rightward d eviation of the bony nasal septum. The maxilla and mandible are intact. Degenerative change is noted at the temporomandibular joints. There is anterior subluxation of the left mandibular condyle. There are no layering blood products within the paranasal sinuses. Trace mucosal thickening is noted in the right maxillary antrum. The remaining paranasal sinuses are clear. There is trace right mastoid effu henok. The left mastoid air cells are well pneumatized. The visualized calvarium and upper cervical sp ine are maintained. Partially imaged brain parenchyma is within normal limits. IMPRESSION: 1. There is no evidence of facial bone fracture. 2. There is anterior subluxation of the left temporomandibular joint which is asymmetric to the right . Correlate clinically for evidence of left TMJ dislocation/injury. ACT 112: Negative or not required by law. Electronically signed by: Shawn Lewis M.D. 12/31/2023 5:15 PM
--- NOTE | 2023-12-31 17:22 | CT Scan Report ---
CHEST CT WITH CONTRAST, ABDOMEN AND PELVIS CT WITH INTRAVENOUS CONTRAST CT DOSE: 3322.78 mGy.cm HISTORY: fall, ams, vomiting, back pain TECHNIQUE: Multiaxial CT images of the chest, abdomen, and pelvis were performed following the intrav enous administration of contrast. A dose lowering technique was utilized adhering to the principles of ALARA. COMPARISON: Abdomen and pelvis CT 10/19/2021. FINDINGS: Chest CT: No acute fractures within the chest. The central airways are patent. No pneumothorax. No pl eural effusions. Emphysema. There is a 3 mm subpleural nodule within the left upper lobe on image 94. Mild dependent changes seen at the lung bases. Small nodular densities at the lung apices favor scar ring. Normal thyroid gland. Normal esophagus. No mediastinal hematoma or lymphadenopathy. The heart i s normal in size. No pericardial effusion. Focal mild aneurysmal dilatation of the distal descending thoracic aorta on image 154 measuring 3.6 cm. No evidence for aortic dissection. The central pulmonar y arteries are patent. Moderate coronary artery calcifications are noted. Abdomen/pelvis CT: No pneumoperitoneum. No pneumatosis. Mild focal deformity at the anterior cortex o f S3 which extends into the left sacral wing best seen on image 257 consistent with an acute nondispl aced sacral fracture. There is a 2 cm duodenal diverticulum. Cholecystectomy. The liver, spleen, adre nal glands, and left kidney are unremarkable. No hydronephrosis. Stable 14 mm right renal angiomyolip bennett. There is a 5 mm lipoma within the pancreatic head. The main portal vein is patent. Calcified rachel que within the normal caliber abdominal aorta. No retroperitoneal hematoma or lymphadenopathy. The bl adder is unremarkable. There is a calcified subserosal 4 cm fibroid. Colonic diverticulosis. No evide nce for acute diverticulitis. No bowel wall thickening or obstruction. Normal appendix. IMPRESSION: 1. No acute traumatic process within the chest. 2. An acute nondisplaced sacral fracture at the S3 level. 3. 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 4. Emphysema. 5. Additional findings as described above. ACT 112: Negative or not required by law. Electronically signed by: Jamaal Alexander M.D. 12/31/2023 5:20 PM
[2023-12-31 18:04] LABS: Appearance Urine Clear (Clear); Bacteria Urine Automated 2+ (None Seen); Bilirubin Urine Negative (Negative); Blood Urine Negative (Negative); Cast Urine Automated 0-2 /lpf (0-2); Color Urine Yellow; Epithelial Cell Urine Auto 0-2 /hpf (0-2); Glucose Urine UA 2+ (Negative); Ketones Urine 1+ (Negative); Leukocyte Esterase Urine Trace (Negative); Nitrite Urine Negative (Negative); Protein Urine 2+ (Negative); Specific Gravity Urine 1.036 (1.000-1.030); Urobilinogen Urine Negative (Negative); pH Urine 7.5 (4.5-7.5)
[2023-12-31] MEDS: SODIUM CHLORIDE 0.9% 1,000 ML IV ONE (18:24)
[2023-12-31 19:54] LABS: Adenovirus PCR Not Detected (NotDetected); Bordetella parapertussis PCR Not Detected (NotDetected); Bordetella pertussis PCR Not Detected (NotDetected); Chlamydia pneumoniae PCR Not Detected (NotDetected); Coronavirus 229E PCR Not Detected (NotDetected); Coronavirus CoV-2 (COVID19)PCR Not Detected (NotDetected); Coronavirus HKU1 PCR Not Detected (NotDetected); Coronavirus NL63 PCR Not Detected (NotDetected); Coronavirus OC43PCR Not Detected (NotDetected); Human Metapneumovirus PCR Not Detected (NotDetected); Influenza A PCR Not Detected (NotDetected); Influenza B PCR Not Detected (NotDetected); Mycoplasma pneumoniae PCR Not Detected (NotDetected); Parainfluenza Virus 1 PCR Not Detected (NotDetected); Parainfluenza Virus 2 PCR Not Detected (NotDetected); Parainfluenza Virus 3 PCR Not Detected (NotDetected); Parainfluenza Virus 4 PCR Not Detected (NotDetected); Respiratory Syncytial VirusPCR Not Detected (NotDetected); Rhinovirus/Enterovirus PCR Not Detected (NotDetected)
--- NOTE | 2023-12-31 20:38 | History & Physical Report ---
Date of Service December 31, 2023 Assessment & Plan (1) Fall: Plan: 83-year-old female with past medical history significant for type 2 diabetes, diabetic neuropathy, hypertension, statin intolerance, generalized anxiety disorder, depression who comes because of fall. As per he saw the patient around 1:30 PM working on her iPad. Around 3 PM he got a call from his and she was seemed confused so came to the house. And found her on the floor. Apparently she also called 911. EMS was able to get her up and bring to the hospital. Patient currently alert and awake and oriented. She does not remember exactly how she fell. Denies any headache. Vision is okay. Hard of hearing. No runny nose. Has some sore throat. No cough. No fevers. Had transient chest pain in the ER. Currently denies any chest pain. Currently denies shortness of breath. Has back pain. Has pain in left fingers. No abdominal pain. When she fell she had an episode of vomiting. She has a walker and cane at home but she does not use them as per the . Appetite is okay. No difficulty swallowing. She has some shakiness of the chin but states that happens when she is anxious. Fall Imaging shows sacral fractures Pain control Ortho consult PT OT Possible syncope Patient does not remember how she fell CT head is okay Telemetry Echo Orthostatics Gentle fluids Can consider cardiac consult UTI Possibly contributing Rocephin Will follow cultures Diabetes Continue Lantus Sliding scale Will monitor Hypertension Lisinopril Will monitor GERD Omeprazole Hypothyroidism On Synthyroid GERD anxiety disorder Depression Lexapro Ativan as needed DVT prophylaxis Heparin subcu Disposition Med/telemetry Full code if there is chance of recovery as per my discussion with the patient History of Present Illness Chief Complaint: Fall, possible syncope, UTI Primary Care Provider: Marcelino Mae, 83-year-old female with past medical history significant for type 2 diabetes, diabetic neuropathy, hypertension, statin intolerance, generalized anxiety disorder, depression who comes because of fall. As per he saw the patient around 1:30 PM working on her iPad. Around 3 PM he got a call from his and she was seemed confused so came to the house. And found her on the floor. Apparently she also called 911. EMS was able to get her up and bring to the hospital. Patient currently alert and awake and oriented. She does not remember exactly how she fell. Denies any headache. Vision is okay. Hard of hearing. No runny nose. Has some sore throat. No cough. No fevers. Had transient chest pain in the ER. Currently denies any chest pain. Currently denies shortness of breath. Has back pain. Has pain in left fingers. No abdominal pain. When she fell she had an episode of vomiting. She has a walker and cane at home but she does not use them as per the . Appetite is okay. No difficulty swallowing. She has some shakiness of the chin but states that happens when she is anxious. Past medical history. As mentioned above. Past surgical history. Colonoscopy. Cystoscopy. EGD. Laparoscopic cholecystectomy. Ligation ordered. Bilateral cataract surgeries. Social history. . Quit smoking 2012. Smoked half pack a day for 42 years. No alcohol use. No drug use. Family history. Brother had CAD. Father had CAD. Allergies Allergy/AdvReac Type Severity Reaction Status Date / Time Penicillins Allergy Severe EDEMA OF Verified 12/31/23 18:04 AIRWAY, HIVES [id number] Reductase AdvReac Intermediate MUSCLE Verified 12/31/23 18:04 Inhibitor PAIN/CRAMPS Home Medications Medication Instructions Recorded Confirmed Type metformin 1,000 mg tablet 1,000 mg PO BIDM 08/29/21 12/31/23 History escitalopram oxalate 10 mg tablet 10 mg PO QAM 10/19/21 12/31/23 History levothyroxine 50 mcg tablet 50 mcg PO DAILYBB 10/19/21 12/31/23 History lisinopril 5 mg tablet 5 mg PO QAM 10/19/21 12/31/23 History omeprazole 20 mg capsule,delayed 20 mg PO DAILYBB 10/19/21 12/31/23 History release vitamins A,C,X-tmzm-eciekq 2,148 2 tab PO QDL 10/19/21 12/31/23 History mcg-113 mg-45 mg-17.4 mg tablet (PreserVision AREDS) repaglinide 2 mg tablet See Rx Instructions .Route .COMPLEX 04/18/23 12/31/23 History diclofenac sodium 1 % topical gel 4 g topical BID PRN PAIN, AFFECTED 12/31/23 12/31/23 History AREA dulaglutide 1.5 mg/0.5 mL 1.5 mg subcut WK 12/31/23 12/31/23 History subcutaneous pen injector (Trulicity) insulin degludec 100 unit/mL (3 28 unit subcut QAM 12/31/23 12/31/23 History mL) subcutaneous pen (Tresiba FlexTouch U-100 insulin) lorazepam 0.5 mg tablet 0.5 mg PO BID ANXIETY 12/31/23 12/31/23 History nitroglycerin 0.4 mg sublingual 0.4 mg sublingual DIRECTED PRN 12/31/23 12/31/23 History tablet (Nitrostat) CHEST PAIN/SEVERE REFLUX pioglitazone 15 mg tablet 15 mg PO QAM 12/31/23 12/31/23 History Past Med/Surg History Surgical History History of cholecystectomy Family History Mother Hearing loss Father Heart disease Other No family history of allergies No family history of bleeding disorder Denies family history of Cancer Hypertension Stroke Asthma Social History Smoking Status: Never smoker Tobacco Type: Cigarettes packs per day: 1; Do You Dip or Chew Tobacco: No; Hx Alcohol Use: No Hx Substance Use: No Preferred Language: Chinese Communication Ability: Effective Project Accountant Required: No Beliefs That Will Affect Care: None marital status: Current Living Situation: Spouse current occupational status: retired How many Children do You have: 2 Feels Safe at Home: Yes Assistive Devices: Walker and Wheelchair Review of Systems Review of Systems: All systems reviewed & are unremarkable except as noted in HPI & below Physical Exam Physical Exam: General- Not in distress. Head- atraumatic Eyes- PERRL. ENT- oropharynx clear Neck- supple, no JVD. Lungs- clear to auscultation no wheezing or crackles. Heart- regular rhythm; no murmur, no gallop. Abdomen- normal bowel sounds, soft, nontender, no distension Extremities- no pretibial edema, no erythema seen Neuro- alert, oriented . hard of hearing ; PERRL, no facial palsy; no dysar thria; power 3/5 bilaterally obeys commands Skin- warm & dry Results & Data Results & Data Vital Signs (Past 12 Hours) Vital Signs Temp Pulse Resp BP Pulse Ox O2 Del Method 12/31/23 19:27 71 12/31/23 15:39 94 Room Air 12/31/23 15:37 71 12/31/23 15:33 36.5 C 74 20 170/77 H 98 Room Air Diagnostic Findings Laboratory Results WBC 15.29 K/ul (4.8-10.8) H 12/31/23 16:10 RBC 4.69 M/uL (4.20-5.40) 12/31/23 16:10 Hgb 13.7 g/dl (12.0-16.0) 12/31/23 16:10 POC Hgb 14.6 g/dl (12.0-16.0) 12/31/23 16:17 Hct 41.0 % (37.0-47.0) 12/31/23 16:10 POC Hct 43 % (37-47) 12/31/23 16:17 MCV 87.4 fL (80.0-100.0) 12/31/23 16:10 MCH 29.2 pg (25.0-34.0) 12/31/23 16:10 MCHC 33.4 g/dL (32.0-36.0) 12/31/23 16:10 RDW Std Deviation 41.0 fL (36.4-46.3) 12/31/23 16:10 RDW Coeff of Delfina 13.0 % (11.5-14.5) 12/31/23 16:10 Plt Count 354 K/uL (130-400) 12/31/23 16:10 MPV 9.9 fL (9.4-12.4) 12/31/23 16:10 Immature Gran % (Auto) 1.0 % 12/31/23 16:10 Neut % (Auto) 86.1 % 12/31/23 16:10 Lymph % (Auto) 7.7 % 12/31/23 16:10 Door % (Auto) 4.8 % 12/31/23 16:10 Eos % (Auto) 0.1 % 12/31/23 16:10 Baso % (Auto) 0.3 % 12/31/23 16:10 Neut # (Auto) 13.14 K/uL (1.40-6.50) H 12/31/23 16:10 Lymph # (Auto) 1.18 K/uL (1.20-3.40) L 12/31/23 16:10 Door # (Auto) 0.74 K/uL (0.11-0.59) H 12/31/23 16:10 Eos # (Auto) 0.02 K/uL (0.00-0.50) 12/31/23 16:10 Baso # (Auto) 0.05 K/uL (0.00-0.20) 12/31/23 16:10 Immature Gran # (Auto) 0.16 K/uL (0.01-0.20) 12/31/23 16:10 PT 10.9 Seconds (9.0-12.0) 12/31/23 16:10 INR 1.0 (0.9-1.1) 12/31/23 16:10 POC Sodium 137 mmol/L (135-144) 12/31/23 16:17 Sodium 136 mmol/L (136-145) 12/31/23 16:10 POC Potassium 4.0 mmol/L (3.3-5.0) 12/31/23 16:17 Potassium 3.9 mmol/L (3.5-5.1) 12/31/23 16:10 POC Chloride 99 mmol/L (101-112) L 12/31/23 16:17 Chloride 101 mmol/L (98-107) 12/31/23 16:10 Carbon Dioxide 27 mmol/L (21-32) 12/31/23 16:10 POC Total CO2 26 mmol/L (24-31) 12/31/23 16:17 Anion Gap 8 (3-11) 12/31/23 16:10 POC Anion Gap 17.0 mmol/L (16-25) 12/31/23 16:17 POC BUN 17 mg/dl (7-18) 12/31/23 16:17 BUN 17 mg/dl (6-23) 12/31/23 16:10 Creatinine 0.61 mg/dl (0.6-1.2) 12/31/23 16:10 POC Creatinine 0.5 mg/dl (0.6-1.3) L 12/31/23 16:17 Est Cr Clr Drug Dosing 65.8 ml/min 12/31/23 16:10 Est GFR ( Amer) 97.8 ml/min 12/31/23 16:10 Est GFR (Non-Af Amer) 84.4 ml/min 12/31/23 16:10 BUN/Creatinine Ratio 27.9 (10-20) H 12/31/23 16:10 Glucose 191 mg/dl (70-99(Fasting)) H 12/31/23 16:10 POC Glucose (other) 186 mg/dl (70-99) H 12/31/23 16:17 Lactate 1.9 mmol/L (0.4-2.0) 12/31/23 16:22 Calcium 9.5 mg/dl (8.6-10.3) 12/31/23 16:10 POC Ioniz Calcium Martha 1.19 mmol/l (1.12-1.32) 12/31/23 16:17 Magnesium 1.7 mg/dl (1.7-2.4) 12/31/23 16:10 Total Bilirubin 0.6 mg/dl (0.2-1.0) 12/31/23 16:10 AST 15 U/L (13-39) 12/31/23 16:10 ALT 11 U/L (7-52) 12/31/23 16:10 Alkaline Phosphatase 53 U/L (34-104) 12/31/23 16:10 Total Creatine Kinase 53 U/L (26-192) 12/31/23 16:10 Troponin I High Sens Cancelled 12/31/23 19:38 Total Protein 7.1 gm/dl (6.0-8.3) 12/31/23 16:10 Albumin 4.1 gm/dl (3.4-5.0) 12/31/23 16:10 Globulin 3.0 gm/dl (2.5-4.0) 12/31/23 16:10 Albumin/Globulin Ratio 1.4 (0.9-2) 12/31/23 16:10 Procalcitonin < 0.02 ng/ml (0-0.5) 12/31/23 16:10 TSH 1.615 uIu/ml (0.300-4.500) 12/31/23 16:10 Urine Color Yellow 12/31/23 17:32 Urine Appearance Clear (Clear) 12/31/23 17:32 Urine pH 7.5 (4.5-7.5) 12/31/23 17:32 Ur Specific [place] 1.036 (1.000-1.030) H 12/31/23 17:32 Urine Protein 2+ (Negative) H 12/31/23 17:32 Urine Glucose (UA) 2+ (Negative) H 12/31/23 17:32 Urine Ketones 1+ (Negative) H 12/31/23 17:32 Urine Blood Negative (Negative) 12/31/23 17:32 Urine Nitrite Negative (Negative) 12/31/23 17:32 Urine Bilirubin Negative (Negative) 12/31/23 17:32 Urine Urobilinogen Negative (Negative) 12/31/23 17:32 Ur Leukocyte Esterase Trace (Negative) H 12/31/23 17:32 Urine WBC (Auto) 11-20 /hpf (0-5) H 12/31/23 17:32 Urine RBC (Auto) 6-10 /hpf (0-2) H 12/31/23 17:32 U Hyaline Cast (Auto) 0-2 /lpf (0-2) 12/31/23 17:32 U Epithel Cells (Auto) 0-2 /hpf (0-2) 12/31/23 17:32 Urine Bacteria (Auto) 2+ (None Seen) H 12/31/23 17:32 Adenovirus (PCR) Not Detected (NotDetected) 12/31/23 18:56 B. pertussis DNA (PCR) Not Detected (NotDetected) 12/31/23 18:56 B.parapertussis DNA PCR Not Detected (NotDetected) 12/31/23 18:56 C. pneumoniae DNA (PCR) Not Detected (NotDetected) 12/31/23 18:56 Coronavirus OC43 (PCR) Not Detected (NotDetected) 12/31/23 18:56 Coronavirus HKU1 (PCR) Not Detected (NotDetected) 12/31/23 18:56 Coronavirus 229E (PCR) Not Detected (NotDetected) 12/31/23 18:56 SARS-CoV-2 (PCR) Not Detected (NotDetected) 12/31/23 18:56 Coronavirus NL63 (PCR) Not Detected (NotDetected) 12/31/23 18:56 Human Metapneumovir PCR Not Detected (NotDetected) 12/31/23 18:56 Influenza Type A (PCR) Not Detected (NotDetected) 12/31/23 18:56 Influenza Type B (PCR) Not Detected (NotDetected) 12/31/23 18:56 M. pneumoniae (PCR) Not Detected (NotDetected) 12/31/23 18:56 Parainfluenza 1 (PCR) Not Detected (NotDetected) 12/31/23 18:56 Parainfluenza 2 (PCR) Not Detected (NotDetected) 12/31/23 18:56 Parainfluenza 3 (PCR) Not Detected (NotDetected) 12/31/23 18:56 Parainfluenza 4 (PCR) Not Detected (NotDetected) 12/31/23 18:56 RSV (PCR) Not Detected (NotDetected) 12/31/23 18:56 Entero/Rhino (PCR) Not Detected (NotDetected) 12/31/23 18:56 Impressions Abdomen/Pelvis CT 12/31/23 15:[address] WITH CONTRAST, ABDOMEN AND PELVIS CT WITH INTRAVENOUS CONTRAST CT DOSE: 3322.78 mGy.cm HISTORY: fall, ams, vomiting, back pain TECHNIQUE: Multiaxial CT images of the chest, abdomen, and pelvis were performed following the intravenous administration of contrast. A dose lowering technique was utilized adhering to the principles of ALARA. COMPARISON: Abdomen and pelvis CT 10/19/2021. FINDINGS: Chest CT: No acute fractures within the chest. The central airways are patent. No pneumothorax. No pleural effusions. Emphysema. There is a 3 mm subpleural nodule within the left upper lobe on image 94. Mild dependent changes seen at the lung bases. Small nodular densities at the lung apices favor scarring. Normal thyroid gland. Normal esophagus. No mediastinal hematoma or lymphadenopathy. The heart is normal in size. No pericardial effusion. Focal mild aneurysmal dilatation of the distal descending thoracic aorta on image 154 measuring 3.6 cm. No evidence for aortic dissection. The central pulmonary arteries are patent. Moderate coronary artery calcifications are noted. Abdomen/pelvis CT: No pneumoperitoneum. No pneumatosis. Mild focal deformity at the anterior cortex of S3 which extends into the left sacral wing best seen on image 257 consistent with an acute nondisplaced sacral fracture. There is a 2 cm duodenal diverticulum. Cholecystectomy. The liver, spleen, adrenal glands, and left kidney are unremarkable. No hydronephrosis. 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 There is a 5 mm lipoma within the pancreatic head. The main portal vein is patent. Calcified plaque within the normal caliber abdominal aorta. No retroperitoneal hematoma or lymphadenopathy. The bladder is unremarkable. There is a calcified subserosal 4 cm fibroid. Colonic diverticulosis. No evidence for acute diverticulitis. No bowel wall thickening or obstruction. Normal appendix. IMPRESSION: 1. No acute traumatic process within the chest. 2. An acute nondisplaced sacral fracture at the S3 level. 3. 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 4. Emphysema. 5. Additional findings as described above. ACT 112: Negative or not required by law. Electronically signed by: Jamaal Alexander M.D. 12/31/2023 5:[address] 12/31/23 15:39 CT SCAN OF THE CERVICAL SPINE CLINICAL HISTORY: Fall. COMPARISON STUDY: No priors. TECHNIQUE: CT scan of the cervical spine is performed from the skull base to the upper thoracic spine. Images are reviewed in the axial, sagittal, and coronal planes. IV contrast was not administered for this examination. A dose lowering technique was utilized adhering to the principles of ALARA. FINDINGS: Skeletal structures: The skeletal structures are osteopenia. There is no evidence of fracture or subluxation involving the cervical spine. Vertebral body height and alignment are maintained. There is straightening of the cervical lordosis. Anterior osteophytes are seen throughout the The odontoid process and lateral masses are intact. The atlantoaxial articulation is preserved noting productive degenerative change. The spinous processes appear intact. There is mild multilevel facet arthropathy. Intervertebral discs: There is moderate disc space narrowing at C4-C5, C5-C6, and C6-C7. Mild narrowing is seen at the remaining cervical levels. Central canal: Posterior disc osteophyte complexes at C5-C6 and C6-C7 likely contribute to acquired compromise of the central canal. Soft tissues: The prevertebral and paraspinous soft tissues are within normal limits. There is atherosclerotic calcification of the carotid bulbs. Calvarium: The visualized calvarium at the skull base appears intact. Brain parenchyma: Partially visualized brain parenchyma at the skull base is within normal limits. Sinuses and mastoids: The visualized paranasal sinuses are clear. The mastoid air cells are well pneumatized. Lung apices: Emphysematous change is seen at the apices. Apical lung parenchymal is otherwise clear as imaged. IMPRESSION: 1. There is no evidence of cervical spine fracture or subluxation. 2. Osteopenia and spondylotic change as above. ACT 112: Negative or not required by law. Electronically signed by: Shawn Lewis M.D. 12/31/2023 5:[address] 12/31/23 15:[address] WITH CONTRAST, ABDOMEN AND PELVIS CT WITH INTRAVENOUS CONTRAST CT DOSE: 3322.78 mGy.cm HISTORY: fall, ams, vomiting, back pain TECHNIQUE: Multiaxial CT images of the chest, abdomen, and pelvis were performed following the intravenous administration of contrast. A dose lowering technique was utilized adhering to the principles of ALARA. COMPARISON: Abdomen and pelvis CT 10/19/2021. FINDINGS: Chest CT: No acute fractures within the chest. The central airways are patent. No pneumothorax. No pleural effusions. Emphysema. There is a 3 mm subpleural nodule within the left upper lobe on image 94. Mild dependent changes seen at the lung bases. Small nodular densities at the lung apices favor scarring. Normal thyroid gland. Normal esophagus. No mediastinal hematoma or lymphadenopathy. The heart is normal in size. No pericardial effusion. Focal mild aneurysmal dilatation of the distal descending thoracic aorta on image 154 measuring 3.6 cm. No evidence for aortic dissection. The central pulmonary arteries are patent. Moderate coronary artery calcifications are noted. Abdomen/pelvis CT: No pneumoperitoneum. No pneumatosis. Mild focal deformity at the anterior cortex of S3 which extends into the left sacral wing best seen on image 257 consistent with an acute nondisplaced sacral fracture. There is a 2 cm duodenal diverticulum. Cholecystectomy. The liver, spleen, adrenal glands, and left kidney are unremarkable. No hydronephrosis. 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 There is a 5 mm lipoma within the pancreatic head. The main portal vein is patent. Calcified plaque within the normal caliber abdominal aorta. No retroperitoneal hematoma or lymphadenopathy. The bladder is unremarkable. There is a calcified subserosal 4 cm fibroid. Colonic diverticulosis. No evidence for acute diverticulitis. No bowel wall thickening or obstruction. Normal appendix. IMPRESSION: 1. No acute traumatic process within the chest. 2. An acute nondisplaced sacral fracture at the S3 level. 3. 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 4. Emphysema. 5. Additional findings as described above. ACT 112: Negative or not required by law. Electronically signed by: Jamaal Alexander M.D. 12/31/2023 5:20 PM Chest X-Ray 12/31/23 15:39 SINGLE VIEW CHEST CLINICAL HISTORY: Generalized weakness. FINDINGS: An AP, portable, upright chest radiograph is compared to study dated 04/18/2023. The cardiomediastinal silhouette is unremarkable noting atherosclerotic calcification of the thoracic aorta. Chronic interstitial thickening is similar to previous. There is mild bibasilar scarring/atelectasis. The lungs and pleural spaces are otherwise clear. No pneumothorax is seen. The skeletal structures are osteopenic. The bony thorax is grossly intact. Cholecystectomy clips are seen in the right upper quadrant. IMPRESSION: No active disease in the chest. ACT 112: Negative or not required by law. Electronically signed by: Shawn Lewis M.D. 12/31/2023 3:[address] 12/31/23 15:39 CT SCAN OF THE FACIAL BONES WITHOUT IV CONTRAST CLINICAL HISTORY: Fall. Facial injury. COMPARISON STUDY: No priors. TECHNIQUE: High-resolution CT scan of the facial bones is performed. Images are reviewed in the axial, sagittal, and coronal planes. IV contrast was not administered for this examination. A dose lowering technique was utilized adhering to the principles of ALARA. There is streak artifact from bilateral earrings. FINDINGS: The skeletal structures are osteopenic. There is no evidence of facial bone fracture. The bony orbits are intact and the orbital contents are within normal limits noting bilateral ocular lens implants. The zygomatic arches, nasal bones, and pterygoid plates are preserved. There is rightward deviation of the bony nasal septum. The maxilla and mandible are intact. Degenerative change is noted at the temporomandibular joints. There is anterior subluxation of the left mandibular condyle. There are no layering blood products within the paranasal sinuses. Trace mucosal thickening is noted in the right maxillary antrum. The remaining paranasal sinuses are clear. There is trace right mastoid effusion. The left mastoid air cells are well pneumatized. The visualized calvarium and upper cervical spine are maintained. Partially imaged brain parenchyma is within normal limits. IMPRESSION: 1. There is no evidence of facial bone fracture. 2. There is anterior subluxation of the left temporomandibular joint which is asymmetric to the right. Correlate clinically for evidence of left TMJ dis location/injury. ACT 112: Negative or not required by law. Electronically signed by: Shawn Lewis M.D. 12/31/2023 5:[address] 12/31/23 15:39 CT SCAN OF THE BRAIN WITHOUT IV CONTRAST CLINICAL HISTORY: Fall. COMPARISON STUDY: No priors. TECHNIQUE: Unenhanced axial CT scan of the brain is performed from the vertex to the skull base. A dose lowering technique was utilized adhering to the principles of ALARA. FINDINGS: Brain parenchyma: There is age-related involutional change noting moderate subcortical and periventricular microangiopathic disease. There is no hemorrhage, mass effect, or evidence of acute territorial ischemia by CT criteria. A chronic lacunar infarct is noted basal ganglia. Marshall-white matter differentiation is preserved. No extra-axial fluid collection is seen. Ventricles, sulci, cisterns: Prominent secondary to involutional change. Intracranial vasculature: There is atherosclerotic calcification of the cavernou s carotid arteries. Calvarium: The skeletal structures are osteopenic. No depressed calvarial fracture is seen. Soft tissues: There is a scalp contusion at the posterior vertex. Sinuses and mastoids: The visualized paranasal sinuses are clear. The mastoid air cells are well pneumatized. Orbits: The bony orbits are grossly intact. There are bilateral ocular lens implants. IMPRESSION: There is no hemorrhage, mass effect, or evidence of acute territorial ischemia by CT criteria. ACT 112: Negative or not required by law. Electronically signed by: Shawn Lewis M.D. 12/31/2023 5:06 PM Hand X-Ray 12/31/23 16:06 XR hand LT min 3V routine CLINICAL HISTORY: fall, contusion middle finger COMPARISON STUDY: None. FINDINGS: No fracture or dislocation within the left hand. Soft tissues are unremarkable. No radiopaque foreign bodies. IMPRESSION: No fractures within the left hand. ACT 112: Negative or not required by law. Electronically signed by: Jamaal Alexander M.D. 12/31/2023 5:05 PM ECG Additional Comments: ECG. Normal sinus rhythm rate of 69. No significant change was found. Code Status & VTE Plan VTE Prophylaxis Plan VTE Prophylaxis will be ordered: Yes
[2023-12-31] MEDS: SULFAMETHOXAZOLE/TRIMETHOPRIM DS 800/160MG TAB PO ONE (20:41)
[2023-12-31] MEDS: MoRPHine SULFATE 2 MG/ML CARP IV STA (20:42)
[2023-12-31] MEDS ORDERED: GLUCOSE 10 TAB/TUBE PO PRN (23:10)
[2023-12-31] MEDS ORDERED: ONDANSETRON INJ 2 MG/ML 2 ML VIAL IV PRN (23:10)
[2023-12-31] MEDS ORDERED: DEXTROSE 50% 50 ML SYRINGE IV PRN (23:10)
[2023-12-31] MEDS ORDERED: GLUCAGON FOR INJ 1 MG VIAL SQ PRN (23:10)
[2023-12-31] MEDS ORDERED: GLUCOSE 40% GEL 15 GM TUBE PO PRN (23:10)
[2023-12-31] MEDS ORDERED: ACETAMINOPHEN 325 MG TAB PO PRN (23:10)
[2023-12-31] MEDS ORDERED: NITROGLYCERIN SL 0.4 MG/TAB TAB SL PRN (23:10)
[2023-12-31] MEDS ORDERED: DICLOFENAC SOD 1% GEL 100 GM TUBE EXT PRN (23:10)
[2023-12-31] MEDS ORDERED: CARBOHYDRATES FOR HYPOGLYCEMIA PO PRN (23:10)
[2024-01-01] MEDS: LORazepam 0.5 MG TAB PO SCH ×2 (00:36→20:52)
[2024-01-01] MEDS: INSULIN ASPART PER UNIT CHARGE SC SCH (00:36)
[2024-01-01] MEDS: SODIUM CHLORIDE 0.9% 1,000 ML IV SCH ×2 (00:39→18:39)
[2024-01-01] MEDS: HEPARIN SOD 5,000 UNIT/0.5 ML VIAL SQ SCH (00:40)
[2024-01-01] MEDS: AZTREONAM 2,000 MG in DEXTROSE 5% MINI-B 100 ML IV SCH (01:17)
[2024-01-01 04:47] LABS: Basophils # (auto) 0.04 K/uL (0.00-0.20); Basophils % (auto) 0.4 %; Eosinophils # (auto) 0.07 K/uL (0.00-0.50); Eosinophils % (auto) 0.7 %; Hematocrit (blood only) 37.9 % (37.0-47.0); Hemoglobin 12.7 g/dl (12.0-16.0); Immature Granulocytes # (auto) 0.04 K/uL (0.01-0.20); Immature Granulocytes % (auto) 0.4 %; Lymphocytes # (auto) 2.52 K/uL (1.20-3.40); Lymphocytes % (auto) 25.7 %; Mean Corpuscular Hemoglobin 29.5 pg (25.0-34.0); Mean Corpuscular Hgb Conc 33.5 g/dL (32.0-36.0); Mean Corpuscular Volume 87.9 fL (80.0-100.0); Mean Platelet Volume 10.2 fL (9.4-12.4); Monocytes # (auto) 1.01 K/uL (0.11-0.59); Monocytes % (auto) 10.3 %; Neutrophils # (auto) 6.13 K/uL (1.40-6.50); Neutrophils % (auto) 62.5 %; Platelet Count 333 K/uL (130-400); RDW Coefficient of Variation 13.1 % (11.5-14.5); RDW Standard Deviation 42.4 fL (36.4-46.3); Red Blood Count 4.31 M/uL (4.20-5.40); White Blood Count 9.81 K/ul (4.8-10.8)
[2024-01-01 04:53] LABS: BUN Creatinine Ratio 25.4 (10-20); Calcium 8.2 mg/dl (8.6-10.3); Creatinine Clr Calc Pharmacy 63.7 ml/min; Est GFR (African American) 96.8 ml/min; Est GFR (Non-African American) 83.5 ml/min; Magnesium 1.7 mg/dl (1.7-2.4); Potassium 3.7 mmol/L (3.5-5.1)
[2024-01-01 05:00] LABS: Troponin I High Sensitivity 9.3 pg/ml (0-14)
[2024-01-01] MEDS: LEVOTHYROXINE SODIUM 50 MCG TABLET PO SCH (06:10)
[2024-01-01] MEDS: PANTOprazole 40 MG TAB PO SCH (06:10)
[2024-01-01 07:19] LABS: Estimated Average Glucose 206 mg/dl; Hemoglobin A1C 8.8 % (4.5-5.6)
[2024-01-01] MEDS: LANTUS PER UNIT CHARGE SC SCH (08:50)
[2024-01-01] MEDS: lisinopril 5 MG TAB PO SCH (08:56)
[2024-01-01] MEDS: ESCITALOPRAM OXALATE 10 MG TAB PO SCH (08:56)
[2024-01-01] MEDS: CEROVITE ADV FORMULA TAB PO SCH (11:46)
--- NOTE | 2024-01-01 16:51 | Hospitalist Progress Note ---
Date of Service January 01, 2024 Assessment & Plan (1) Fall: Plan: 83-year-old female with past medical history significant for type 2 diabetes, diabetic neuropathy, hypertension, statin intolerance, generalized anxiety disorder, depression who comes because of fall. As per he saw the patient around 1:30 PM working on her iPad. Around 3 PM he got a call from his and she was seemed confused so came to the house. And found her on the floor. Apparently she also called 911. EMS was able to get her up and bring to the hospital. Patient currently alert and awake and oriented. She does not remember exactly how she fell. Denies any headache. Vision is okay. Hard of hearing. No runny nose. Has some sore throat. No cough. No fevers. Had transient chest pain in the ER. Currently denies any chest pain. Currently denies shortness of breath. Has back pain. Has pain in left fingers. No abdominal pain. When she fell she had an episode of vomiting. She has a walker and cane at home but she does not use them as per the . Appetite is okay. No difficulty swallowing. She has some shakiness of the chin but states that happens when she is anxious. Fall Imaging shows sacral fractures Pain control Ortho consult PT OT Possible syncope Patient does not remember how she fell CT head is okay Telemetry Echo Orthostatics Gentle fluids Can consider cardiac consult UTI Possibly contributing Rocephin Will follow cultures Diabetes Continue Lantus Sliding scale Will monitor Hypertension Lisinopril Will monitor GERD Omeprazole Hypothyroidism On Synthyroid GERD anxiety disorder Depression Lexapro Ativan as needed DVT prophylaxis Heparin subcu Disposition Med/telemetry Full code if there is chance of recovery as per my discussion with the patient Admission and Anticipated Discharge Date Admission Date: December 31, 2023 Results & Data Results & Data Vital Signs (Past 12 Hours) Vital Signs Temp Pulse Pulse Resp BP BP Pulse Ox 01/01/24 16:20 36.9 C 71 20 104/68 97 01/01/24 14:30 72 15 96 01/01/24 14:00 72 18 106/52 L 95 01/01/24 13:35 73 14 94 01/01/24 13:00 72 14 95 01/01/24 12:30 75 14 95 01/01/24 12:01 75 13 94 01/01/24 12:00 114/52 L 01/01/24 11:59 75 13 94 01/01/24 11:30 75 17 96 01/01/24 11:00 115/52 L 01/01/24 11:00 76 15 115/52 L 95 01/01/24 10:31 76 13 96 01/01/24 10:01 79 15 94 01/01/24 10:00 130/52 L 01/01/24 09:30 77 14 96 01/01/24 09:17 78 18 96 01/01/24 08:30 76 17 95 01/01/24 08:00 128/66 01/01/24 08:00 87 20 97 01/01/24 07:30 74 13 98 01/01/24 07:23 75 01/01/24 07:00 74 12 99 01/01/24 07:00 128/58 L 01/01/24 06:00 75 11 L 125/51 L 98 01/01/24 05:30 74 12 99 01/01/24 05:00 75 12 111/57 L 98 O2 Del Method O2 Flow Rate 01/01/24 16:20 Nasal Cannula 2 01/01/24 14:30 01/01/24 14:00 Nasal Cannula 2 01/01/24 13:35 01/01/24 13:00 Nasal Cannula 2 01/01/24 12:30 01/01/24 12:01 01/01/24 12:00 01/01/24 11:59 01/01/24 11:30 01/01/24 11:00 01/01/24 11:00 Nasal Cannula 2 01/01/24 10:31 Nasal Cannula 2 01/01/24 10:01 Nasal Cannula 2 01/01/24 10:00 01/01/24 09:30 Nasal Cannula 2 01/01/24 09:17 01/01/24 08:30 01/01/24 08:00 01/01/24 08:00 01/01/24 07:30 01/01/24 07:23 01/01/24 07:00 01/01/24 07:00 01/01/24 06:00 Nasal Cannula 2 01/01/24 05:30 01/01/24 05:00 Nasal Cannula 2
--- NOTE | 2024-01-01 22:07 | Magnetic Resonance Report ---
Exam(s): MRI HEAD Without Contrast EXAM: MR Head Without Intravenous Contrast CLINICAL HISTORY: Reason for exam: syncope. TECHNIQUE: Magnetic resonance images of the head/brain without intravenous contrast in multiple planes. COMPARISON: Comparison made to prior head CT from December 31, 2023. FINDINGS: Brain: Moderate nonspecific white matter changes. No mass. No hemorrhage. No acute infarct. Ventricles: Moderate ventriculomegaly. Bones/joints: Unremarkable. No acute fracture. Sinuses: Unremarkable as visualized. No acute sinusitis. Mastoid air cells: There is a tiny amount of fluid in the right mastoid air cells. No mastoid effusion. Orbits: Bilateral lens replacements. IMPRESSION: No evidence of acute intracranial pathology. Electronically signed by: Shamika Jones MD 01/01/24 22:06 PM
--- OUTSIDE RECORDS SUMMARY | 2024-01-01 23:08 | External Medical Summary | Summary of Care ---
Author Name Unknown Organization [facility] Address [address] [facility] [place] [address] Phone [phone] Care Team Providers Care Systems Developer Name Role Phone Tu Marcelino Vokeenan Primary Care Provider Reason for Visit * Reason Onset Date Comments Medication Question 11/15/2023 Encounter Details Date Type Department Care Team (Late st Contact Info) Description 11/15/2023 Telephone Pharmacy Call Center [phone] [place] [address] [facility] [place] [address] [facility], [place] [id number] Medication Question Allergies Active Allergy Reactions Criticality Noted Date Comments Penicillins Edema airway,Hives High 07/04/2000 Statins Muscle pain High 10/25/2014 Had to go to physical therapy-trouble moving documented as of this encounter (statuses as of 11/15/2023) Medications Medication Sig Dispensed Refills Start Date End Date Status NITROSTAT 0.4 MG SL SUBLIndications:Esopha geal reflux One tablet under tongue if needed for sever reflux. 10 Tab 0 06/29/2014 Active Biotin 5000 MCG Capsule Take 2 Caps by mouth daily. 30 Cap 0 04/16/2016 Active Additional Information Patient not taking.Reported on 05/16/2023 Multiple Vitamins-Minerals (MULTIVITAMIN ADULT) TABS Take 1 Tab by mouth daily at noon. 30 Tab 0 02/18/2018 Active Multiple Vitamins-Minerals (ICAPS AREDS 2) CAPS Take by mouth daily at noon. 0 Active zoster vac recomb adjuvanted (SHINGRIX) 50 MCG/0.5ML injectionIndications:N eed for vaccination for zoster Inject 0.5 mL into a large muscle now and repeat dose in 60 to 180 days 1 Each 1 10/08/2019 Active Additional Information Patient not taking.Reported on 02/07/2023 Meloxicam 7.5 MG Oral Tablet (Mobic)Indications:Art hralgia of right temporomandibular joint,Rotator cuff syndrome of right shoulder Take 1 Tab by mouth daily. for pain. 30 Tab 1 06/29/2021 Active Additional Information Patient not taking.Reported on 02/07/2023 Diclofenac Sodium 1 % External Gel (Voltaren)Indications: Generalized osteoarthritis Apply topically to affected area 4 g 2 times a day as needed for Pain, Moderate. Apply to the affected area as needed. 350 g 1 05/14/2022 Active Escitalopram Oxalate 10 MG Oral Tablet (Lexapro) Take 1 Tablet by mouth in the morning. 90 Tablet 3 12/17/2022 Active BD Pen Needle Susan 2nd Gen 32G X 4 MM (Insulin Pen Needle) INJECT EVERY DAY WITH LEVEMIR 100 Each 2 01/31/2023 Active Virsto Software Ultra 2 w/Device Kit Use to test blood glucose E11.9 1 Kit 0 04/18/2023 Active PeerIndexTouch Delica Lancets 33G Use 4 times daily as directed to check blood glucose E11.9 100 Each 1 04/22/2023 Active BreakingPoint Systemsuch Ultra In Vitro Strip (Glucose Blood) Use 4 times daily as directed to test blood glucose E 11.9 100 Strip 5 04/22/2023 Active LORazepam 0.5 MG Oral Tablet (Ativan)Indications:Es sential tremor,Abnormal movement of jaw,RAFIA (generalized anxiety disorder),Panic disorder Take 1 Tablet by mouth 2 times a day as needed for Anxiety. 60 Tablet 0 04/27/2023 Active Lisinopril 5 MG Oral Tablet (Prinivil)Indications: HTN, goal below 140/90 Take 1 Tablet by mouth daily at noon. 90 Tablet 3 05/07/2023 Active Tresiba FlexTouch 100 UNIT/ML Subcutaneous Solution Pen-injector (Insulin Degludec) Inject 28 Units under the skin in the morning. 30 mL 3 07/26/2023 Active Pioglitazone HCl 15 MG Oral Tablet (Actos) Take 1 Tablet by mouth in the morning. 30 Tablet 5 07/29/2023 Active Omeprazole 20 MG Oral Capsule Delayed Release (PriLOSEC) Take 1 Capsule by mouth in the morning. 1 hour before the first meal of the day. 90 Capsule 1 08/28/2023 Active metFORMIN HCl 1000 MG Oral Tablet (Glucophage) TAKE 1 TABLET BY MOUTH TWO TIMES DAILY WITH MORNING AND EVENING MEALS 180 Tablet 1 09/25/2023 Active Levothyroxine Sodium 50 MCG Oral Tablet (Levoxyl)Indications:H ypothyroidism, unspecified type Take 1 Tablet by mouth daily first thing in the morning. (at least 30 min prior to breakfast or other meds) 90 Tablet 3 10/01/2023 Active Repaglinide 2 MG Oral Tablet (Prandin)Indications:T ype 2 diabetes mellitus with hemoglobin A1c goal of less than 7.5% (HCC) TAKE 2 TABLETS BY MOUTH EVERY DAY WITH BREAKFAST, 1 TABLET WITH LUNCH (IF EATEN) AND 2 TABLETS WITH DINNER OR DIRECTED 450 Tablet 1 10/01/2023 Active Dulaglutide 0.75 MG/0.5ML Subcutaneous Solution Pen-injector (Trulicity) Inject 0.75 mg under the skin once a week. 2 mL 11 11/11/2023 Active Trulicity 0.75 MG/0.5ML Subcutaneous Solution Pen-injector (Dulaglutide) Inject 0.75 mg under the skin once a week. 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 Statin intolerance 05/27/2013 documented as of this encounter (statuses as of 11/15/2023) Resolved Problems Problem Noted Date Diagnosed Date Resolved Date Type 2 diabetes mellitus wit h diabetic neuropathy 01/05/2019 10/08/2019 Type 2 diabetes mellitus wit h hemoglobin A1c goal of less than 7.5% 07/12/2014 01/05/2019 Overview: ICD-10 update of inactive term HTN, GOAL BELOW 140/80 04/21/201212/07 Overview: Per HTN Protocol #27. HTN, GOAL BELOW 130/80 09/28/200904/24 Overview: Per HTN Taxonomy. Type 2 diabetes mellitus wit h hemoglobin A1c goal of less than 7.0% 06/30/2009 05/07/2014 Overview: Per Diabetes Taxonomy. ICD-10 update of inactive term Benign neoplasm of colon 02/12/2008 Overview: hyperplastic polyps--repeat 10 years ADVANCE DIRECTIVE INFORMATION 02/20/2005 09/11/2018 Overview: Yes, Patient instructed to provide copy of advance directive for provider to review and to be scanned into Electronic Medical Record RIGO PIERRE 06/21/2003 HTN, goal below 140/90 07/04/200009/28 Overview: Per HTN Taxonomy. Type 2 diabetes mellitus wit h hemoglobin A1c goal of less than 7.0% 07/04/2000 06/30/2009 Overview: Per Diabetes Taxonomy. ICD-10 update of inactive term Menopause 07/04/2000 09/11/2018 Overview: age 45 documented as of this encounter (statuses as of 11/15/2023) Immunizations Name Administration Dates Next Due COVID-19 mRNA, LNP-s, No Pre serve, 2-Dose Series ([employer]) 07/21/2021,11/16/2020,10/27/2020 Covid-19, Mrna, Lnp-s, Pf, B ivalent, 30 Mcg, IM, 12 yrs and above ([employer]) 06/08/2022 Pneumococcal Conjugate Vacc, 13 Valent (Prevnar) 10/28/2014 Pneumococcal Polysaccharide PPV23 (Pneumovax) 10/08/2016,03/23/2014(),04/29/2006 Season Influenza, Quad, PF, Adjuvanted, 65+ Yrs, IM (FLUAD) 05/14/2022 Seasonal Influenza, PF, 6 M & above, IM , (FluLaval or Fluzone) 06/10/2018 Seasonal Influenza, Quadriva lent Hd, 65+ Yrs 05/03/2021 Seasonal Influenza, Quadriva lent, No Preserve, IM 05/18/2020,06/07/2016 Seasonal Influenza, Split, I IV3, With Preserve, Inj 05/16/2015,06/01/2014,06/17/2013,05/04,05/22/2011,06/06/2010,06/02/20 09,06/16/2008,06/12/2007,07/11/2006 06/01/2015 Seasonal Influenza, Trivalen t, Adjuvanted, 65+ yrs 06/02/2019 Seasonal Influenza, Trivalen t, High Dose, No Preserve, IM 05/20/2017 TD, Preservative Free 10/05/2008 TDAP (age 10 and older)(Boostrix) 10/08/2019 Varicella Zoster Vaccine (Adult) 12/17/2011 Zoster Vaccine Recombinant (Shingrix) 03/09/2020 ,10/08/2019 documented as of this encounter Social History Tobacco Use Types Packs/Day Years Used Date Smoking Tobacco: Former Cigarettes 0.5 42 1 10/26/1970 - 08/25/2013 Smokeless Tobacco: Never Alcohol Use Standard Drinks/Week Comments No 0 (1 standard drink = 0.6 oz pur e alcohol) PHQ-2 Answer Date Recorded PHQ Adult Total Score 1 05/14/2022 Hunger Vital Sign Answer Date Recorded Worried About Running Out of Food in the Last Ye ar Never true 10/08/2019 Ran Out of Food in the Last Year Never true 10/08/2019 Sex and Gender Information Value Date Recorded Sex Assigned at Female 10/08/2019 2:35 PM EST Gender Identity Female 10/08/2019 2:35 PM EST Sexual Orientation Straight 10/08/2019 2: 35 PM EST Job Start Date Occupation Industry Not on file Not on file Not on file documented as of this encounter Miscellaneous Notes * Telephone Encounter - Radha Tan [facility] - 11/15/2023 10:45 AM EDT Patient Phone Numbers Spoke to patient via phone. [facility] Clinical Pharmacist 11/15/2023, 10:50 AM * Telephone Encounter - Silvia Junior PHARM Tech - 11/15/2023 10:39 AM EDT Caller's name: Jo Preferred call back number(OFFICE NUMBER FOR ): [phone] Reason for call: Medication question: Pt looking for her Trulicity she said the pharmacy was on back order for the one she normally gets but she said the [facility] said she was going to send in a new prescription, the pharmacy doesn't have the new prescription yet. Please advise and return her call. Thank you, Silvia Junior Head Irrigator Centralized Clinical Pharmacy Services 11/15/2023,10:39 AM documented in this encounter Plan of Treatment Upcoming Encounters Date Type Department Care Team (Late st Contact Info) Description 02/03/2024 2:30 PM ED[facility] [address] [place] [address] [facility] [place] [address] [place] [address] 05/18/2024 2:00 PM EDT Office Visit [facility] [address] [place] [address] Bebe Abbasi PA-C [address] [place] [id number] Health Maintenance Due Date Last Done Comments COVID-19 Vaccine ( season) 2023 06/08/2022, 07/21/2021, 11/16/2020, Additional history exists Influenza Vaccine (FLU shot) (#1) 2023 05/14/2022, 05/03/2021, 05/18/2020, Additional history exists Depression Screening 05/14/2023 05/14/2022 Diabetic Foot Exam 05/14/2023 05/14/2022, 0 03/15/2021, 04/07/2020, Additional history exists B-12 02/08/2024 02/07/2023, 05/03, 05/01/2021, Additional history exists HbA1c 04/21/2024 10/22/2023, 07/04, 02/07/2023, Additional history exists TSH 04/23/2024 04/23/2023, 05/03, 05/01/2021, Additional history exists Albumin/Creatinine Ratio 05/10/2024 023, 02/07/2023, 01/25/2021, Additional history exists GFR 07/26/2024 07/26/2023, 04/03, 02/07/2023, Additional history exists Diabetic Eye Exam 08/22/2024 08/22/2023, , 03/07/2023, Additional history exists DXA Scan 05/10/2026 05/10/2021, 04/03, 03/29/2011, Additional history exists DTaP,Tdap,and Td Vaccines (2 - Td or Tdap) 10/08/2029 10/08/2019, 10/05/2008 Pneumococcal Vaccine: 65+ Years Completed 10/08/2016, 10/28/2014, 04/29/2006 Zoster Vaccines Completed 03/09/2020, 02/2020, 12/17/2011 GARDASIL-HPV IMMUNIZATION SERIES Aged Out No longer eligible based on patient's age to complete this topic Hepatitis B Aged Out No longer eligi ble based on patient's age to complete this topic MENINGOCOCCAL (MENACTRA/MENVEO) Aged Out No longer eligible based on patient's age to complete this topic documented as of this encounter Medical Devices Implanted Type Area Barber Instructor Device Identifier Shelf Expiration Date Model / Serial / Lot Lens 21.5 Mx60e - [id number] - [id number] Implanted:Qty: 1 on 09/16/2018 by Edgar Pandya MD at OR [facility] Left: Eye BAUSCH & LOMB 06/01/2021 [id number]-54.5 / [id number] / [id number] Lens Intraoc 21.0 - [id number] - [id number] Implanted:Qty: 1 on 09/25/2018 by Edgar Pandya MD at OR [facility] Right: Eye BAUSCH & LOMB 04/01/2021 [id number] / [id number] / [id number] documented as of this encounter Care Teams Systems Developer Relationship Specialty Start Date End Date Marcelino Mae DO [address] [place] [address] PCP - General Family Medicine 06/10/18 documented as of this encounter
--- OUTSIDE RECORDS SUMMARY | 2024-01-01 23:08 | External Medical Summary | Summary of Care ---
Author Name Unknown Organization [facility] Address [address] [facility] [address] Phone [phone] Care Team Providers Care Chemistry Account Manager Name Role Phone Marcelino Mae DO Primary Care Provider Encounter Details Date Type Department Care Team (Late st Contact Info) Description 11/15/2023 Orders Only Pharmacy, [facility] [address] [facility] [place] [address] [facility] [address] [facility] [place] [address] Patient Phone Numbers Allergies Active Allergy Reactions Criticality Noted Date Comments Penicillins Edema airway,Hives High 07/04/2000 Statins Muscle pain High 10/25/2014 Had to go to physical therapy-trouble moving documented as of this encounter (statuses as of 11/15/2023) Medications Medication Sig Dispensed Refills Start Date End Date Status NITROSTAT 0.4 MG SL SUBLIndications:Esop hageal reflux One tablet under tongue if needed for sever reflux. 10 Tab 0 06/29/20 14 Active Biotin 5000 MCG Capsule Take 2 Caps by mouth daily. 30 Cap 0 04/16/20 16 Active Additional Information Patient not taking.Reported on 05/16/2023 Multiple Vitamins-Minerals (MULTIVITAMIN ADULT) TABS Take 1 Tab by mouth daily at noon. 30 Tab 0 02/19/20 18 Active Multiple Vitamins-Minerals (ICAPS AREDS 2) CAPS Take by mouth daily at noon. 0 Active zoster vac recomb adjuvanted (SHINGRIX) 50 MCG/0.5ML injectionIndications :Need for vaccination for zoster Inject 0.5 mL into a large muscle now and repeat dose in 60 to 180 days 1 Each 1 10/08/19 Active Additional Information Patient not taking.Reported on 02/07/2023 Meloxicam 7.5 MG Oral Tablet (Mobic)Indications:A rthralgia of right temporomandibular joint,Rotator cuff syndrome of right shoulder Take 1 Tab by mouth daily. for pain. 30 Tab 1 06/29/20 Active Additional Information Patient not taking.Reported on 02/07/2023 Diclofenac Sodium 1 % External Gel (Voltaren)Indication s:Generalized osteoarthritis Apply topically to affected area 4 g 2 times a day as needed for Pain, Moderate. Apply to the affected area as needed. 350 g 1 05/14/20 22 Active Escitalopram Oxalate 10 MG Oral Tablet (Lexapro) Take 1 Tablet by mouth in the morning. 90 Tablet 3 12/18/19 23 Active BD Pen Needle Susan 2nd Gen 32G X 4 MM (Insulin Pen Needle) INJECT EVERY DAY WITH LEVEMIR 100 Each 2 02/01/20 23 Active INDOM Ultra 2 w/Device Kit Use to test blood glucose E11.9 1 Kit 0 04/18/20 23 Active MethodTouch Delica Lancets 33G Use 4 times daily as directed to check blood glucose E11.9 100 Each 1 04/22/20 23 Active MethodTouch Ultra In Vitro Strip (Glucose Blood) Use 4 times daily as directed to test blood glucose E 11.9 100 Strip 5 04/22/20 23 Active LORazepam 0.5 MG Oral Tablet (Ativan)Indications: Essential tremor,Abnormal movement of jaw,RAFIA (generalized anxiety disorder),Panic disorder Take 1 Tablet by mouth 2 times a day as needed for Anxiety. 60 Tablet 0 04/27/20 23 Active Lisinopril 5 MG Oral Tablet (Prinivil)Indication s:HTN, goal below 140/90 Take 1 Tablet by mouth daily at noon. 90 Tablet 3 05/07/20 23 Active Tresiba FlexTouch 100 UNIT/ML Subcutaneous Solution Pen-injector (Insulin Degludec) Inject 28 Units under the skin in the morning. 30 mL 3 07/26/20 23 Active Pioglitazone HCl 15 MG Oral Tablet (Actos) Take 1 Tablet by mouth in the morning. 30 Tablet 5 07/29/20 23 Active Omeprazole 20 MG Oral Capsule Delayed Release (PriLOSEC) Take 1 Capsule by mouth in the morning. 1 hour before the first meal of the day. 90 Capsule 1 08/28/20 23 Active metFORMIN HCl 1000 MG Oral Tablet (Glucophage) TAKE 1 TABLET BY MOUTH TWO TIMES DAILY WITH MORNING AND EVENING MEALS 180 Tablet 1 09/25/19 24 Active Levothyroxine Sodium 50 MCG Oral Tablet (Levoxyl)Indications :Hypothyroidism, unspecified type Take 1 Tablet by mouth daily first thing in the morning. (at least 30 min prior to breakfast or other meds) 90 Tablet 3 10/01/19 24 Active Repaglinide 2 MG Oral Tablet (Prandin)Indications :Type 2 diabetes mellitus with hemoglobin A1c goal of less than 7.5% (HCC) TAKE 2 TABLETS BY MOUTH EVERY DAY WITH BREAKFAST, 1 TABLET WITH LUNCH (IF EATEN) AND 2 TABLETS WITH DINNER OR DIRECTED 450 Tablet 1 10/01/19 24 Active Dulaglutide 0.75 MG/0.5ML Subcutaneous Solution Pen-injector (Trulicity) Inject 0.75 mg under the skin once a week. 2 mL 11 11/11/19 24 Active Trulicity 0.75 MG/0.5ML Subcutaneous Solution Pen-injector (Dulaglutide) Inject 0.75 mg under the skin once a week. 2 mL 11 11/15/19 24 Active Trulicity 1.5 MG/0.5ML Subcutaneous Solution Pen-injector (Dulaglutide) INJECT 1.5MG SUBCUTANEOUSLY (UNDER THE SKIN) ONCE A WEEK 2 mL 2 09/05/19 24 024 Discontinued documented as of this encounter (statuses as [...] to be scanned into Electronic Medical Record CHOLELITH W AC CHOLECYST 06/21/2003 HTN, goal below 140/90 07/04/200009/28 Overview: Per HTN Taxonomy. Type 2 diabetes mellitus wit h hemoglobin A1c goal of less than 7.0% 07/04/2000 06/30/2009 Overview: Per Diabetes Taxonomy. ICD-10 update of inactive term Menopause 07/04/2000 09/11/2018 Overview: age 45 documented as of this encounter (statuses as of 11/15/2023) Immunizations Name Administration Dates Next Due COVID-19 mRNA, LNP-s, No Pre serve, 2-Dose Series (As It Is) 07/21/2021,11/16/2020,10/27/2020 Covid-19, Mrna, Lnp-s, Pf, B ivalent, 30 Mcg, IM, 12 yrs and above ([employer]) 06/08/2022 Pneumococcal Conjugate Vacc, 13 Valent (Prevnar) [...] on file documented as of this encounter Progress Notes * Radha Tan RPh - 11/15/2023 10:46 AM EDT Patient Phone Numbers Spoke to patient via phone. Prescription sent to [facility]. Radha Tan, Pharm D, BCACP Clinical Pharmacist 11/15/2023, 10:50 AM documented in this encounter Plan of Treatment Upcoming Encounters Date Type Department Care Team (Late st Contact Info) Description 02/03/2024 2:30 PM EDT Office Visit Pharmacy, [facility] [address] [facility] [place] [address] [facility] [address] [facility] [place] [address] 05/18/2024 2:00 PM EDT Office Visit Neurology [facility] [address] [facility] [place] [address] Bebe Abbasi PA-C [address] [facility] [place] [address] Health Maintenance Due Date Last Done Comments [...] this encounter Medical Devices Implanted Type Area Silk Screen Processor Device Identifier Shelf Expiration Date Model / Serial / Lot Lens 21.5 Mx60e - [id number] - [id number] Implanted:Qty: 1 on 09/16/2018 by Edgar Pandya MD at [facility] Left: Eye BAUSCH & LOMB 06/01/2021 [id number]-92.5 / [id number] / [id number] Lens Intraoc 21.0 - [id number] - [id number] Implanted:Qty: 1 on 09/25/2018 by Edgar Pandya MD at OR [facility] Right: Eye BAUSCH & LOMB 04/01/2021 [id number] / [id number] / [id number] documented as of this encounter Care Teams Chemistry Account Manager Relationship Specialty Start Date End Date Marcelino Mae DO [address] [place] [address] PCP - General Family Medicine 06/10/18 documented as of this encounter
--- OUTSIDE RECORDS SUMMARY | 2024-01-01 23:08 | External Medical Summary | Summary of Care ---
Author Name Unknown Organization [facility] Address [address] [facility] [place] [address] Phone [phone] Care Team Providers Care Loop Puller Name Role Phone Tu Marcelino Vokeenan Primary Care Provider Reason for Visit * Reason Onset Date Comments Medication Question 12/23/2023 Encounter Details Date Type Department Care Team (Late st Contact Info) Description 12/23/2023 Telephone Pharmacy Call Center [phone] [place] [address] [address] [facility] [address] [facility] [place], [place] [id number] Medication Question Allergies Active Allergy Reactions Criticality Noted Date Comments Penicillins Edema airway,Hives High 07/04/2000 Statins Muscle pain High 10/25/2014 Had to go to physical therapy-trouble moving documented as of this encounter (statuses as of 12/23/2023) Medications Medication Sig Dispensed Refills Start Date End Date Status NITROSTAT 0.4 MG SL SUBLIndications:Esoph ageal reflux One tablet under tongue if needed [...] zoster vac recomb adjuvanted (SHINGRIX) 50 MCG/0.5ML injectionIndications: Need for vaccination for zoster Inject 0.5 mL into a large muscle now and repeat dose in 60 to 180 days 1 Each 1 10/08/19 Active Additional Information Patient not taking.Reported on 02/07/2023 Meloxicam 7.5 MG Oral Tablet (Mobic)Indications:Ar thralgia of right temporomandibular joint,Rotator cuff syndrome of right shoulder Take 1 Tab by mouth daily. for pain. 30 Tab 1 06/29/20 Active Additional Information Patient not taking.Reported on 02/07/2023 Diclofenac Sodium 1 % External Gel (Voltaren)Indications :Generalized osteoarthritis Apply topically to affected area 4 [...] LEVEMIR 100 Each 2 02/01/20 23 Active ValetAnywhere Ultra 2 w/Device Kit Use to test blood glucose E11.9 1 Kit 0 04/18/20 23 Active Energy PointsTouch Delica Lancets 33G Use 4 times daily as directed to check blood glucose E11.9 100 Each 1 04/22/20 23 Active Energy PointsTouch Ultra In Vitro Strip (Glucose Blood) Use 4 times daily as directed to test blood glucose E 11.9 100 Strip 5 04/22/20 23 Active LORazepam 0.5 MG Oral Tablet (Ativan)Indications:E ssential tremor,Abnormal movement of jaw,RAFIA (generalized anxiety disorder),Panic disorder Take 1 Tablet by mouth 2 times a day as needed for Anxiety. 60 Tablet 0 04/27/20 23 Active Lisinopril 5 MG Oral Tablet (Prinivil)Indications :HTN, goal below 140/90 Take 1 Tablet by [...] Active Levothyroxine Sodium 50 MCG Oral Tablet (Levoxyl)Indications: Hypothyroidism, unspecified type Take 1 Tablet by mouth daily first thing in the morning. (at least 30 min prior to breakfast or other meds) 90 Tablet 3 10/01/19 24 Active Repaglinide 2 MG Oral Tablet (Prandin)Indications: Type 2 diabetes mellitus with hemoglobin A1c goal of less than 7.5% (HCC) TAKE 2 TABLETS BY MOUTH EVERY DAY WITH BREAKFAST, 1 TABLET WITH LUNCH (IF EATEN) AND 2 TABLETS WITH DINNER OR DIRECTED 450 Tablet 1 10/01/19 24 Active Trulicity 1.5 MG/0.5ML Subcutaneous Solution Pen-injector (Dulaglutide) Inject 1.5 mg under the skin once a week. 2 mL 12/23/19 24 Active Dulaglutide 0.75 MG/0.5ML Subcutaneous Solution Pen-injector (Trulicity) Inject 0.75 mg under the skin once a week. 2 mL 11/11/19 24 024 Discontinued Trulicity 0.75 MG/0.5ML Subcutaneous Solution Pen-injector (Dulaglutide) Inject 0.75 mg under the skin once a week. 2 mL 11/15/19 24 024 Discontinued documented as of this encounter (statuses as of 12/23/2023) Active Problems Problem Noted Date Diagnosed Date [...] as of this encounter (statuses as of 12/23/2023) Resolved Problems Problem Noted Date Diagnosed Date [...] as of this encounter (statuses as of 12/23/2023) Immunizations Name Administration Dates Next Due COVID-19 mRNA, LNP-s, No Pre serve, 2-Dose Series ([employer] World) 07/21/2021,11/16/2020,10/27/2020 Covid-19, Mrna, Lnp-s, Pf, B ivalent, [...] Notes * Telephone Encounter - Radha Tan [facility] - 12/23/2023 11:47 AM EDT Patient Phone Numbers Spoke to patient via phone. Sent Trulicity 1.5 mg to [facility]. Patient instructed to double up 0.75 mg until can berry picker machine operator the 1.5 mg and start that when due again; as she has 0.75 mg at home and will then go berry picker machine operator the 1.5 mg. Radha Tan, Pharm D, [facility] Clinical Pharmacist 12/23/2023, 11:50 AM * Telephone Encounter - Silvia Junior security patrol officer - 12/23/2023 11:35 AM EDT Caller's name: Jo Preferred call back number(OFFICE NUMBER FOR ): [phone] Reason for call: Pt is calling to let the [facility] know that [facility] has the 1.5mg Trulicity and she isnt sure if her insurance will cover it. She would like a return call. Thank you, Silvia Junior Security Associate [facility] Pharmacy Services 12/23/2023,11:36 AM documented in this encounter Plan of Treatment Upcoming Encounters Date Type Department Care Team (Late st Contact Info) Description 02/03/2024 2:30 PM EDT [facility] [address] [facility] [place] [address] [facility] [address] [place] [address] 05/18/2024 2:00 PM EDT Office Visit [facility] [address] [place] [address] [address] Bebe Abbasi PA-C [address] [place] [address] Health Maintenance Due Date Last Done Comments COVID-19 Vaccine ( season) 2023 06/08/2022, 07/21/2021, 11/16/2020, Additional history exists Diabetic Foot Exam 05/14/2023 05/14/2022, 0 03/15/2021, 04/07/2020, Additional history exists B-12 02/08/2024 02/07/2023, 05/03, 05/01/2021, Additional history exists HbA1c 04/21/2024 10/22/2023, 07/04, 02/07/2023, Additional history exists TSH 04/23/2024 04/23/2023, 05/03, 05/01/2021, Additional history exists Influenza Vaccine (FLU shot) (Season Ended) 2024 05/14/2022, 05/03/2021, 05/18/2020, Additional history exists Albumin/Creatinine Ratio 05/10/2024 023, [...] this encounter Medical Devices Implanted Type Area Pig Farm Manager Device Identifier Shelf Expiration Date Model / Serial / Lot Lens 21.5 Mx60e - [id number] - [id number] Implanted:Qty: 1 on 09/16/2018 by Edgar Pandya MD at OR [facility] Left: Eye BAUSCH & LOMB 06/01/2021 [id number] / [id number] / [id number] Lens Intraoc 21.0 - [id number] - [id number] Implanted:Qty: 1 on 09/25/2018 by Edgar Pandya MD at OR [facility] Right: Eye BAUSCH & LOMB 04/01/2021 [id number] / [id number] / [id number] documented as of this encounter Care Teams Loop Puller Relationship Specialty Start Date End Date Marcelino Mae DO [address] [place] [id number] PCP - General Family Medicine 06/10/18 documented as of this encounter
--- OUTSIDE RECORDS SUMMARY | 2024-01-01 23:09 | External Medical Summary | Summary of Care ---
Author Name Unknown Organization [facility] Address [address] [facility] [place] [address] Phone [phone] Care Team Providers Care Professional Sports Scout Name Role Phone Tu Marcelino Vokeenan Primary Care Provider Reason for Visit * Reason Onset Date Comments Other 10/01/2023 Encounter Details Date Type Department Care Team (Late st Contact Info) Description 10/01/2023 Telephone Pharmacy Call Center [phone] [place] [address] [address] [facility] [address] [facility], [place] [phone] Other Allergies Active Allergy Reactions Criticality Noted Date Comments Penicillins Edema airway,Hives High 07/04/2000 Statins Muscle pain High 10/25/2014 Had to go to physical therapy-trouble moving documented as of this encounter (statuses as of 10/01/2023) Medications Medication Sig Dispensed Refills Start Date End Date Status NITROSTAT 0.4 MG SL SUBLIndications:Esoph ageal reflux One tablet under tongue if needed for sever reflux. 10 Tab 0 4 Active Biotin 5000 MCG Capsule Take 2 Caps by mouth daily. 30 Cap 0 6 Active Additional Information Patient not taking.Reported on 05/16/2023 Multiple Vitamins-Minerals (MULTIVITAMIN ADULT) TABS Take 1 Tab by mouth daily at noon. 30 Tab 0 8 Active Multiple Vitamins-Minerals (ICAPS AREDS 2) CAPS Take by mouth daily at noon. 0 Active zoster vac recomb adjuvanted (SHINGRIX) 50 MCG/0.5ML injectionIndications: Need for vaccination for zoster Inject 0.5 mL into a large muscle now and repeat dose in 60 to 180 days 1 Each 1 0 Active Additional Information Patient not taking.Reported on 02/07/2023 Meloxicam 7.5 MG Oral Tablet (Mobic)Indications:Ar thralgia of right temporomandibular joint,Rotator cuff syndrome of right shoulder Take 1 Tab by mouth daily. for pain. 30 Tab 1 1 Active Additional Information Patient not taking.Reported on 02/07/2023 Diclofenac Sodium 1 % External Gel (Voltaren)Indications :Generalized osteoarthritis Apply topically to affected area 4 g 2 times a day as needed for Pain, Moderate. Apply to the affected area as needed. 350 g 1 2 Active Escitalopram Oxalate 10 MG Oral Tablet (Lexapro) Take 1 Tablet by mouth in the morning. 90 Tablet 3 3 Active BD Pen Needle Susan 2nd Gen 32G X 4 MM (Insulin Pen Needle) INJECT EVERY DAY WITH LEVEMIR 100 Each 2 3 Active BagThat Ultra 2 w/Device Kit Use to test blood glucose E11.9 1 Kit 0 3 Active InsideTouch Delica Lancets 33G Use 4 times daily as directed to check blood glucose E11.9 100 Each 1 3 Active InsideToThirdLove Ultra In Vitro Strip (Glucose Blood) Use 4 times daily as directed to test blood glucose E 11.9 100 Strip 5 3 Active LORazepam 0.5 MG Oral Tablet (Ativan)Indications:E ssential tremor,Abnormal movement of jaw,RAFIA (generalized anxiety disorder),Panic disorder Take 1 Tablet by mouth 2 times a day as needed for Anxiety. 60 Tablet 0 3 Active Lisinopril 5 MG Oral Tablet (Prinivil)Indications :HTN, goal below 140/90 Take 1 Tablet by mouth daily at noon. 90 Tablet 3 3 Active Tresiba FlexTouch 100 UNIT/ML Subcutaneous Solution Pen-injector (Insulin Degludec) Inject 28 Units under the skin in the morning. 30 mL 3 3 Active Pioglitazone HCl 15 MG Oral Tablet (Actos) Take 1 Tablet by mouth in the morning. 30 Tablet 5 3 Active Omeprazole 20 MG Oral Capsule Delayed Release (PriLOSEC) Take 1 Capsule by mouth in the morning. 1 hour before the first meal of the day. 90 Capsule 1 3 Active Trulicity 1.5 MG/0.5ML Subcutaneous Solution Pen-injector (Dulaglutide) INJECT 1.5MG SUBCUTANEOUSLY (UNDER THE SKIN) ONCE A WEEK 2 mL 2 4 Active metFORMIN HCl 1000 MG Oral Tablet (Glucophage) TAKE 1 TABLET BY MOUTH TWO TIMES DAILY WITH MORNING AND EVENING MEALS 180 Tablet 1 4 Active Levothyroxine Sodium 50 MCG Oral Tablet (Levoxyl)Indications: Hypothyroidism, unspecified type Take 1 Tablet by mouth daily first thing in the morning. (at least 30 min prior to breakfast or other meds) 90 Tablet 3 4 Active Repaglinide 2 MG Oral Tablet (Prandin)Indications: Type 2 diabetes mellitus with hemoglobin A1c goal of less than 7.5% (HCC) TAKE 2 TABLETS BY MOUTH EVERY DAY WITH BREAKFAST, 1 TABLET WITH LUNCH (IF EATEN) AND 2 TABLETS WITH DINNER OR DIRECTED 450 Tablet 1 4 Active Levothyroxine Sodium 50 MCG Oral Tablet (Levoxyl)Indications: Hypothyroidism, unspecified type Take by mouth 1 Tablet in the morning. (at least 30 min prior to breakfast or other meds). 90 Tablet 3 2 024 Discontin ued(Refil l) Repaglinide 2 MG Oral Tablet (Prandin)Indications: Type 2 diabetes mellitus with hemoglobin A1c goal of less than 7.5% (HCC) TAKE 2 TABLETS BY MOUTH EVERY DAY WITH BREAKFAST, 1 TABLET WITH LUNCH (IF EATEN) AND 2 TABLETS WITH DINNER OR DIRECTED 450 Tablet 1 4 024 Discontin ued(Refil l) documented as of this encounter (statuses as of 10/01/2023) Active Problems Problem Noted Date Diagnosed Date [...] as of this encounter (statuses as of 10/01/2023) Resolved Problems Problem Noted Date Diagnosed Date [...] as of this encounter (statuses as of 10/01/2023) Immunizations Name Administration Dates Next Due COVID-19 mRNA, LNP-s, No Pre serve, 2-Dose Series (Pfizer) 07/21/2021,11/16/2020,10/27/2020 Covid-19, Mrna, Lnp-s, Pf, B ivalent, [...] Date Smoking Tobacco: Former Cigarettes 0.5 42 Q uit: 08/25/2013 Smokeless Tobacco: Never Alcohol Use Standard [...] encounter Miscellaneous Notes * Telephone Encounter - Janis Baumann CPhT - 10/01/2023 12:31 PM EST [facility] calling to request levothyroxine. Advise Rx was sent less than 5 minutes ago. Thank you, Janis Baumann Tech 1 Transportation Inspector Centralized Clinical Pharmacy Services ([facility]PS) (formerly Telepharmacy) 10/01/2023, 12:31 PM * Telephone Encounter - Radha Tan RP - 10/01/2023 12:25 PM EST Patient Phone Numbers Spoke to patient's via phone. Patient needs refill of levothyroxine, it was refilled. Also states repagliniade on back order, recommending to try another pharmacy. Sent to [facility] to reach out if unable to obtain. Radha Tan, Pharm D, [facility] Clinical Pharmacist 10/01/2023, 12:27 PM * Telephone Encounter - Silvia Junior PHARM Tech - 10/01/2023 12:12 PM EST Caller's name: Jo Preferred call back number(OFFICE NUMBER FOR ): [phone] Reason for call: Medication question: Pt is frustrated and said she can't see to make phonecalls she hasn't taken any of her meds and said they are all on back order not sure which ones due to her being frantic. She said she was having an anxiety attack on the phone. Please advse and return her call. Thank you, Silvia Junior Transportation Inspector Central[facility] Clinical Pharmacy Services 10/01/2023,12:12 PM documented in this encounter Plan of Treatment Upcoming Encounters Date Type Department Care Team (Late st Contact Info) Description 10/25/2023 1:00 PM EST Office Visit Pharmacy, [facility] [address] [facility] [place] [address] [facility] [address] [facility] [place] [address] 05/18/2024 2:00 PM EDT Office Visit Neurology [facility] [address] [facility] [place] [address] Bebe Abbasi PA-C [address] [facility] [place] [address] Health Maintenance Due Date Last Done Comments Hepatitis B (1 of 3 - Risk 3-dose series) 2001 COVID-19 Vaccine ( season) 2023 06/08/2022, 07/21/2021, 11/16/2020, Additional history exists Influenza Vaccine (FLU shot) (#1) 2023 05/14/2022, 05/03/2021, 05/18/2020, Additional history exists Depression Screening 05/14/2023 05/14/2022 Diabetic Foot Exam 05/14/2023 05/14/2022, 0 03/15/2021, 04/07/2020, Additional history exists HbA1c 01/24/2024 07/26/2023, 06/0 04/2023, 05/14/2022, Additional history exists B-12 02/08/2024 02/07/2023, 05/03, 05/01/2021, Additional history exists TSH 04/23/2024 04/23/2023, 05/03, [...] this encounter Medical Devices Implanted Type Area Retirement Benefits Specialist Device Identifier Shelf Expiration Date Model / Serial / Lot Lens 21.5 Mx60e - [id number] - [id number] Implanted:Qty: 1 on 09/16/2018 by Edgar Pandya MD at OR [facility] Left: Eye BAUSCH & LOMB 06/01/2021 [id number] / [id number] / [id number] Lens Intraoc 21.0 - [id number] - [id number] Implanted:Qty: 1 on 09/25/2018 by Edgar Pandya MD at OR [facility] Right: Eye BAUSCH & LOMB 04/01/2021 [id number] / [id number] / [id number] documented as of this encounter Visit Diagnoses Diagnosis Hypothyroidism, unspecified type Type 2 diabetes mellitus with hemoglobin A1c goal of less than 7.5% (HCC) documented in this encounter Care Teams Professional Sports Scout Relationship Specialty Start Date End Date Marcelino Mae DO [address] [place] [address] PCP - General Family Medicine 06/10/18 documented as of this encounter
--- OUTSIDE RECORDS SUMMARY | 2024-01-01 23:09 | External Medical Summary ---
Author Name Unknown Address Unknown Organization K01:[facility] - [address] [facility] [address] Laboratory Report Ordering Provider Test Date Status SENA FREED 10/22/2023 15:07:31 Final Observation Date Value Abnormality Reference (Units ) Status HbA1C 10/22/2023 15:07:31 9.3 Above high normal 4. 0-5.6 (%) Final The use of HbA1c to monitor glycemic status is based on normal hemoglobin and HbA composition. This test should not be used in patients with abnormal hemoglobin that affects the half life of the red blood cell or the in vivo glycation rates. Glucose, estimated average 10/22/2023 15:07:31 220 Above high normal <126 (mg/dL) Naman mondragon Performing Location [facility] - [address] [address] [facility] [address]
--- OUTSIDE RECORDS SUMMARY | 2024-01-01 23:09 | External Medical Summary | Summary of Care ---
Author Name Unknown Organization [facility] Address [address] [facility] [place] [address] Phone [phone] Care Team Providers Care Press Operator Instant Print Shop Name Role Phone Mamadou Mae DO Primary Care Provider Reason for Visit * Reason Onset Date Comments Medication Refill 08/28/2023 Encounter Details Date Type Department Care Team (Late st Contact Info) Description 08/28/2023 Refill Family Practice [facility] [address] [place] [address] Mamadou Mae DO [address] [place] [address] Encounter for long-term (current) use of medications* Allergies Active Allergy Reactions Criticality Noted Date Comments Penicillins Edema airway,Hives High 07/04/2000 Statins Muscle pain High 10/25/2014 Had to go to physical therapy-trouble moving documented as of this encounter (statuses as of 08/28/2023) Medications Medication Sig Dispensed Refills Start Date [...] as needed. 350 g 1 2 Active Levothyroxine Sodium 50 MCG Oral Tablet (Levoxyl)Indications:H ypothyroidism, unspecified type Take by mouth 1 Tablet in the morning. (at least 30 min prior to breakfast or other meds). 90 Tablet 3 2 Active metFORMIN HCl 1000 MG Oral Tablet (Glucophage) TAKE 1 TABLET BY MOUTH TWO TIMES DAILY WITH MORNING AND EVENING MEALS 180 Tablet 1 3 Active Escitalopram Oxalate 10 MG Oral Tablet (Lexapro) Take 1 Tablet by mouth in the morning. 90 Tablet 3 3 Active Repaglinide 2 MG Oral Tablet (Prandin)Indications:T ype 2 diabetes mellitus with hemoglobin A1c goal of less than 7.5% ([facility]) TAKE 2 TABLETS BY MOUTH WITH BREAKFAST, 1 TABLET BY MOUTH WITH LUNCH (IF EATEN) AND 2 TABLETS BY MOUTH WITH DINNER OR DIRECTED 450 Tablet 1 3 Active BD Pen Needle Susan 2nd Gen 32G X 4 MM (Insulin Pen Needle) INJECT EVERY DAY WITH LEVEMIR 100 Each 2 3 Active Stason Animal Health Ultra 2 w/Device Kit Use to test blood glucose E11.9 1 Kit 0 3 Active PRXuch Delica Lancets 33G Use 4 times daily as directed to check blood glucose E11.9 100 Each 1 3 Active OneTouch Ultra In Vitro Strip (Glucose Blood) Use 4 times daily as directed to test blood glucose E 11.9 100 Strip 5 3 Active LORazepam 0.5 MG Oral Tablet (Ativan)Indications:Es sential tremor,Abnormal movement of jaw,RAFIA (generalized anxiety disorder),Panic disorder Take 1 Tablet by mouth 2 times a day as needed for Anxiety. 60 Tablet 0 3 Active Lisinopril 5 MG Oral Tablet (Prinivil)Indications: HTN, goal below 140/90 Take 1 Tablet by mouth daily at noon. 90 Tablet 3 3 Active Trulicity 1.5 MG/0.5ML Subcutaneous Solution Pen-injector (Dulaglutide) INJECT 1.5 MILLIGRAMS UNDER THE SKIN ONCE A WEEK 2 mL 2 3 Active Tresiba FlexTouch 100 UNIT/ML Subcutaneous [...] the day. 90 Capsule 1 3 Active Omeprazole 20 MG Oral Capsule Delayed Release (PriLOSEC) Take 1 Capsule by mouth at bedtime. 1 hour before the first meal of the day 90 Capsule 3 3 08/28/20 23 Discontinu ed(Refill) documented as of this encounter (statuses as of 08/28/2023) Active Problems Problem Noted Date Diagnosed Date [...] as of this encounter (statuses as of 08/28/2023) Resolved Problems Problem Noted Date Diagnosed Date [...] as of this encounter (statuses as of 08/28/2023) Immunizations Name Administration Dates Next Due COVID-19 mRNA, LNP-s, No Pre serve, 2-Dose Series (Viragen) 07/21/2021,11/16/2020,10/27/2020 Covid-19, Mrna, Lnp-s, Pf, B ivalent, [...] encounter Miscellaneous Notes * Telephone Encounter - Nafisa Moser [facility] - 08/28/2023 4:18 PM ESTSigned Prescriptions: Disp Refills Omeprazole 20 MG Oral Capsule Delayed Rele*90 Cap*1 Sig: Take 1Capsule by mouth in the morning. 1 hour before the first meal of the day.Authorizing Provider: MAMADOU MAE User: NAFISA MOSER * Telephone Encounter - Nafisa Moser [facility] - 08/28/2023 4:17 PM EST Per refill protocol patient needs magnesium lab on file within the past 2 years while using PPIs. Lab work ordered. Patient may obtain with next routine labs. Thanks, Nafisa Moser, [place] Clinical Pharmacist Centralized Clinical Pharmacy Services ([facility]PS) (formerly [facility]) [phone] 08/28/2023 4:17 PM * Telephone Encounter - Nely Tolbert track announcer - 08/28/2023 3:38 PM EST Pt is out of medication Did you pend patient's preferred pharmacy and medication before forwarding?yes Pharmacy: [facility] [id number] [place] Pending Prescriptions: Disp Refills Omeprazole 20 MG Oral Capsule Delayed Rel*90 Cap*3 Sig: Take 1 Capsule by mouth at bedtime. 1 hour before the first meal of the day Last Visit: 04/23/2023 (in office), Visit date not found (telemedicine) Next Visit: Visit date not found If no future appointments scheduled, and last appointment is greater than a year ago, please schedule patient for a follow-up appointment Last date the medication was ordered: Is this request for a controlled substance?No Urine Drug Screen:No results found for this or any previous visit. Patient Phone Numbers Labs: Lab Results Component Value Date/Time CREAT 0.6 07/26/2023 01:08 PM CREAT 0.7 04/07/2020 02:59 PM POTASSIUM 4.7 07/26/2023 01:08 PM POTASSIUM 4.5 04/07/2020 02:59 PM TSH 2.70 04/23/2023 02:27 PM TSH 2.03 04/07/2020 02:59 PM LDLCALC 156 (H) 02/07/2023 12:06 PM LDLCALC 159 (H) 04/07/2020 02:59 PM LDLDIRECT NOT APPLICABLE 04/07/2020 02:59 PM LDLDIRECT 144 (H) 10/25/2014 03:55 PM ALT 26 04/23/2023 02:27 PM ALT 47 (H) 06/15/2015 09:29 AM HGBA1C 10.2 (H) 07/26/2023 01:08 PM HGBA1C 8.3 (H) 10/08/2019 03:36 PM documented in this encounter Plan of Treatment Upcoming Encounters Date Type Department Care Team (Late st Contact Info) Description 10/25/2023 1:00 PM EST [facility] [address] [place] [address] [address] [facility] [address] [place] [address] 05/18/2024 2:00 PM EDT Office Visit [facility] [address] [place] [address] Bebe Abbasi PA-C [address] [place] [address] [address] Scheduled Orders Name Type Priority Associated Diagnoses Orde r Schedule MAGNESIUM Lab Routine Encounter for long-term (current) use of medications Expected: 08/28/2023 (Approximate), Expires: 08/28/2024 Health Maintenance Due Date Last Done Comments [...] this encounter Medical Devices Implanted Type Area School Psychologist Assistant Device Identifier Shelf Expiration Date Model / Serial / Lot Lens 21.5 Mx60e - [id number] - [id number] Implanted:Qty: 1 on 09/16/2018 by Edgar Pandya MD at OR [facility] Left: Eye BAUSCH & LOMB 06/01/2021 [id number] / [id number] / [id number] Lens Intraoc 21.0 - [id number] - [id number] Implanted:Qty: 1 on 09/25/2018 by Edgar Pandya MD at OR [facility] Right: Eye BAUSCH & LOMB 04/01/2021 [id number] / [id number] / [id number] documented as of this encounter Visit Diagnoses Diagnosis Encounter for long-term (current) use of medications- Primary Encounter for long-term (current) use of other medications documented in this encounter Care Teams Press Operator Instant Print Shop Relationship Specialty Start Date End Date Mamadou Mae DO [address] [place] [address] PCP - General Family Medicine 06/10/18 documented as of this encounter
--- OUTSIDE RECORDS SUMMARY | 2024-01-01 23:09 | External Medical Summary ---
Author Name Unknown Address Unknown Organization K01:[facility] - [address] [place] [address] Laboratory Report Ordering Provider Test Date Status VAMSI SKELTON 10/22/2023 15:07:31 Final Observation Date Value Abnormality Reference (Units ) Status Magnesium 10/22/2023 15:07:31 2.1 1.5-2.6 (m g/dL) Final Performing Location [facility] - [address] [place] [address]
--- OUTSIDE RECORDS SUMMARY | 2024-01-01 23:09 | External Medical Summary | Summary of Care ---
Author Name Unknown Organization [facility] Address [address] [facility] [place] [address] Phone [phone] Care Team Providers Care Saw Sharpener Name Role Phone Mae Marcelino Vokeenan Primary Care Provider Reason for Visit * Reason Comments Dosage Adjustment In Person (Anticoag Cl inic) Diabetes Follow-Up Encounter Details Date Type Department Care Team (Late st Contact Info) Description 11/04/2023 1:00 PM EST Office Visit Pharmacy, [facility] [address] [facility] [place] [address] [facility] 132 [facility] [place] [address] Type 2 diabetes mellitus with hemoglobin A1c goal of less than 8.0% ([facility])* Allergies Active Allergy Reactions Criticality Noted Date Comments Penicillins Edema airway,Hives High 07/04/2000 Statins Muscle pain High 10/25/2014 Had to go to physical therapy-trouble moving documented as of this encounter (statuses as of 11/04/2023) Medications Medication Sig Dispensed Refills Start Date [...] WITH LEVEMIR 100 Each 2 3 Active [employer] Discovery Ultra 2 w/Device Kit Use to test blood glucose E11.9 1 Kit 0 3 Active ConnectbeamTouch Delica Lancets 33G Use 4 times daily as directed to check blood glucose E11.9 100 Each 1 3 Active [place] [employer] Ultra In Vitro Strip (Glucose Blood) Use [...] 4 Active Repaglinide 2 MG Oral Tablet (Prandin)Indications:T ype 2 diabetes mellitus with hemoglobin A1c goal of less than 7.5% (HCC) TAKE 2 TABLETS BY MOUTH EVERY DAY WITH BREAKFAST, 1 TABLET WITH LUNCH (IF EATEN) AND 2 TABLETS WITH DINNER OR DIRECTED 450 Tablet 1 4 Active documented as of this encounter (statuses as of 11/04/2023) Active Problems Problem Noted Date Diagnosed Date [...] as of this encounter (statuses as of 11/04/2023) Resolved Problems Problem Noted Date Diagnosed Date [...] as of this encounter (statuses as of 11/04/2023) Immunizations Name Administration Dates Next Due COVID-19 mRNA, LNP-s, No Pre serve, 2-Dose Series (evOLED) 07/21/2021,11/16/2020,10/27/2020 Covid-19, Mrna, Lnp-s, Pf, B ivalent, 30 Mcg, IM, 12 yrs and above (evOLED) 06/08/2022 Pneumococcal Conjugate Vacc, 13 Valent (Prevnar) 10/28/2014 Pneumococcal Polysaccharide PPV23 (Pneumovax) 10/08/2016,03/23/2014(),04/29/2006 Season Influenza, Quad, PF, Adjuvanted, 65+ Yrs, IM (FLUAD) 05/14/2022 Seasonal Influenza, PF, 6 M & above, IM , (FluLaval or Fluzone) 06/10/2018 Seasonal Influenza, Quadriva lent Hd, 65+ Yrs 05/03/2021 Seasonal Influenza, Quadriva lent, No Preserve, IM 05/18/2020,06/07/2016 Seasonal Influenza, Split, I IV3, With Preserve, Inj 05/16/2015,06/01/2014,06/17/2013,05/04,05/22/2011,06/06/2010,06/02/20,06/16/2008,06/12/2007,07/11/2006 06/01/2015 Seasonal Influenza, Trivalen t, Adjuvanted, 65+ [...] of this encounter Progress Notes * Radha Tan, [facility] - 11/04/2023 12:58 PM EST Medication Therapy Disease Management Clinic - Diabetes Management Progress Note Jo Escudero, identified by name and date of , is a 82 year old female being seen for diabetes management/education. Patient presents for return diabetic visit. DIABETES: Current diabetic medications: Repaglinide 2 mg 2 tabs with breakfast, 1 with lunch, and 2 with dinner Metformin 1000 mg AM and 1/2 at PM STOP: Levemir 28 units daily START: Tresiba 28 units daily Trulicity 1.5 mg weekly Actos 15 mg daily Medication Injection Site: Abdomen Lifestyle: Diet: improved Glucose Review/SMBG: Readings per patient memory/recall: Patient is currently testing 0-1 times a day Hypoglycemia: Does your blood sugar go below 70 mg/dL? No Hyperglycemia symptoms present: none Recent Labs Units 10/22/23 1507 07/26/23 1308 02/07/23 1206 HEMOGLOBIN A1C - [facility] % 9.3* 10.2* 9.6* Recent Labs Units 07/26/23 1308 04/23/23 1427 02/07/23 1206 ESTIMATED GLOMERULAR FILTRATION RATE - [facility] mL/min 89 89 89 CREATININE - [facility] mg/dL 0.6 0.6 0.6 HYPERTENSION: Patient on ACEi/ARB: yes BP Readings from Last 3 Encounters: 05/16/23 104/56 04/23/23 90/60 02/07/23 127/65 Blood pressure at goal: yes HYPERLIPIDEMIA: Patient is taking moderate or high intensity statin: No Current regimen: Repatha Goal statin intensity: high The ASCVD Risk score (Tyler KHAN, et al., 2019) failed to calculate for the following reasons: The 2019 ASCVD risk score is only valid for ages 40 to 79 Recent Labs Units 02/07/23 1206 05/14/22 1245 LDL CHOLESTEROL (CALCULATED) - [facility] mg/dL 156* 140* HEALTH MAINTENANCE REVIEW: Health Maintenance Due Topic Date Due Influenza Vaccine (FLU shot) (1) 05/03/2023 COVID-19 Vaccine ( season) 2023 Diabetic Foot Exam 05/14/2023 Depression Screening 05/14/2023 ASSESSMENT & PLAN: ICD-10-CM 1. Type 2 diabetes mellitus with hemoglobin A1c goal of less than 8.0% ([facility]) E11.9 BG Readings - Blood sugars uncontrolled. A1c has improved to 9.3%. Medications - Reviewed current regimen, patient is adherent to regimen. Continue current regimen. Diet, Exercise, Lifestyle - patient had reduced carbohydrates and sweets, will continue to work on diet modification to lower A1c . Discussed with patient. Patient is agreeable to SMBG 0-1 time(s) daily. Patient aware to contact clinic if any hypoglycemia before next visit. MEDICATION CHANGES: no change Diabetic Medications: Repaglinide 2 mg 2 tabs with breakfast, 1 with lunch, and 2 with dinner Metformin 1000 mg AM and 1/2 at PM Tresiba 28 units daily Trulicity 1.5 mg weekly Actos 15 mg daily HEALTH MAINTENANCE INTERVENTIONS: Labs: Ordered & Scheduled: HgA1c Immunizations: Up to Date Foot Exam: Up to Date Eye Exam: Up to Date Annual Wellness Visit: Up to Date FOLLOW UP: Return to clinic in 12 weeks 02/03/2024 Radha Tan [facility] Clinical Pharmacist - Supplemental Nurse Medication Therapy Management Clinic 11/04/2023, 12:58 PM documented in this encounter Plan of Treatment Upcoming Encounters Date Type Department Care Team (Late st Contact Info) Description 02/03/2024 2:30 PM EDT Office Visit Pharmacy, [facility] [address] [place] [address] [facility] [address] [place] [address] 05/18/2024 2:00 PM EDT Office Visit [facility] [address] [place] [address] [address] Bebe Abbasi PA-C [address] [place] [address] [address] Scheduled Orders Name Type Priority Associated Diagnoses Orde r Schedule HEMOGLOBIN A1C Lab Routine Type 2 diabetes mellitus with hemoglobin A1c goal of less than 8.0% ([facility]) Expected: 01/27/2024, Expires: 11/03/2024 Health Maintenance Due Date Last Done Comments [...] 10/08/2016, 10/28/2014, 04/29/2006 Zoster Vaccines Completed 03/09/2020, 0202/2020, 12/17/2011 GARDASIL-HPV IMMUNIZATION SERIES Aged Out No longer eligible based on patient's age to complete this topic Hepatitis B Aged Out No longer eligi ble based on patient's age to complete this topic MENINGOCOCCAL (MENACTRA/MENVEO) Aged Out No longer eligible based on patient's age to complete this topic documented as of this encounter Medical Devices Implanted Type Area Bridge Inspector Device Identifier Shelf Expiration Date Model / Serial / Lot Lens 21.5 Mx60e - [id number] - [id number] Implanted:Qty: 1 on 09/16/2018 by Edgar Pandya MD at [facility] Left: Eye BAUSCH & LOMB 06/01/2021 [id number]-97.5 / [id number] / [id number] Lens Intraoc 21.0 - [id number] - [id number] Implanted:Qty: 1 on 09/25/2018 by Edgar Pandya MD at OR [facility] Right: Eye BAUSCH & LOMB 04/01/2021 [id number] / [id number] / [id number] documented as of this encounter Visit Diagnoses Diagnosis Type 2 diabetes mellitus with hemoglobin A1c goal of less than 8.0% ([facility])- Primary documented in this encounter Care Teams Saw Sharpener Relationship Specialty Start Date End Date Marcelino Mae DO [address] [place] [address] PCP - General Family Medicine 06/10/18 documented as of this encounter
--- OUTSIDE RECORDS SUMMARY | 2024-01-01 23:09 | External Medical Summary | Summary of Care ---
Author Name Unknown Organization [facility] Address [address] [facility] [place] [address] Phone [phone] Care Team Providers Care Concrete Craftsman Name Role Phone Marcelino Mae DO Primary Care Provider Reason for Visit * Reason Comments Outpatient Testing Encounter Details Date Type Department Care Team (Late st Contact Info) Description 10/22/2023 3:10 PM EST Laboratory Laboratory, [facility] [address] [facility] [place] [phone] [facility] [address] [facility] [address] [facility] Other*[id number]; Type 2 diabetes mellitus with hemoglobin A1c goal of less than 8.0% ([facility]); Encounter for long-term (current) use of medications Allergies Active Allergy Reactions Criticality Noted Date Comments Penicillins Edema airway,Hives High 07/04/2000 Statins Muscle pain High 10/25/2014 Had to go to physical therapy-trouble moving documented as of this encounter (statuses as of 10/22/2023) Medications Medication Sig Dispensed Refills Start Date [...] WITH LEVEMIR 100 Each 2 3 Active SenseDataTouch Ultra 2 w/Device Kit Use to test blood glucose E11.9 1 Kit 0 3 Active SenseDataTouch Delica Lancets 33G Use 4 times daily as directed to check blood glucose E11.9 100 Each 1 3 Active SenseDataTouch Ultra In Vitro Strip (Glucose Blood) Use [...] as of this encounter (statuses as of 10/22/2023) Active Problems Problem Noted Date Diagnosed Date [...] as of this encounter (statuses as of 10/22/2023) Resolved Problems Problem Noted Date Diagnosed Date [...] as of this encounter (statuses as of 10/22/2023) Immunizations Name Administration Dates Next Due COVID-19 mRNA, LNP-s, No Pre serve, 2-Dose Series ([employer]) 07/21/2021,11/16/2020,10/27/2020 Covid-19, Mrna, Lnp-s, Pf, B ivalent, [...] on file documented as of this encounter Plan of Treatment Upcoming Encounters Date Type Department Care Team (Late st Contact Info) Description 11/04/2023 1:00 PM EST Office Visit Pharmacy, [facility] 132 [facility] [place] [address] [facility] [address] [facility] [place] [address] 05/18/2024 2:00 PM EDT Office Visit Neurology [facility] [address] [place] [address] Bebe Abbasi PA-C 200 [facility] [place] [address] Pending Results Name Type Priority Associated Diagnoses Date /Time MYCODE INITIAL ADULT Lab Routine MyCode Research Other*[id number] 10/22/2023 3:07 PM EST HEMOGLOBIN A1C Lab Routine Type 2 diabetes mellitus with hemoglobin A1c goal of less than 8.0% ([facility]) 10/22/2023 3:07 PM EST MAGNESIUM Lab Routine Encounter for long-term (current) use of medications 10/22/2023 3:07 PM EST MYCODE INITIAL ADULT-PINK Lab Routine MyCode Research Other*[id number] 10/22/2023 3:07 PM EST MYCODE SST1 Lab Routine MyCode Research Other*[id number] 10/22/2023 3:07 PM EST MYCODE SST2 Lab Routine MyCode Research Other*[id number] 10/22/2023 3:07 PM EST Health Maintenance Due Date Last Done Comments [...] this encounter Medical Devices Implanted Type Area Intellectual Property Legal Assistant Device Identifier Shelf Expiration Date Model / Serial / Lot Lens 21.5 Mx60e - [id number] - [id number] Implanted:Qty: 1 on 09/16/2018 by Edgar Pandya MD at [facility] Left: Eye BAUSCH & LOMB 06/01/2021 [id number]-99.5 / [id number] / [id number] Lens Intraoc 21.0 - [id number] - [id number] Implanted:Qty: 1 on 09/25/2018 by Edgar Pandya MD at OR [facility] Right: Eye BAUSCH & LOMB 04/01/2021 [id number] / [id number] / [id number] documented as of this encounter Visit Diagnoses Diagnosis MyCode Research Other*[id number] Type 2 diabetes mellitus with hemoglobin A1c goal of less than 8.0% ([facility]) Encounter for long-term (current) use of medications Encounter for long-term (current) use of other medications documented in this encounter Care Teams Concrete Craftsman Relationship Specialty Start Date End Date Marcelino Mae DO [address] [place] [address] PCP - General Family Medicine 06/10/18 documented as of this encounter
--- OUTSIDE RECORDS SUMMARY | 2024-01-01 23:09 | External Medical Summary | Summary of Care ---
Author Name Unknown Organization [facility] Address [address] [place] [address] Phone [phone] Care Team Providers Care Computer Systems Analyst Name Role Phone Tu Marcelino Vokeenan Primary Care Provider Encounter Details Date Type Department Care Team (Late st Contact Info) Description 10/28/2023 Orders Only Outcomes Research Department [address] [place] [address] Silvia Gamboa CHRA MyCode Research Other*[id number] Allergies Active Allergy Reactions Criticality Noted Date Comments Penicillins Edema airway,Hives High 07/04/2000 Statins Muscle pain High 10/25/2014 Had to go to physical therapy-trouble moving documented as of this encounter (statuses as of 10/28/2023) Medications Medication Sig Dispensed Refills Start Date [...] WITH LEVEMIR 100 Each 2 3 Active [employer] Ultra 2 w/Device Kit Use to test blood glucose E11.9 1 Kit 0 3 Active [employer] Delica Lancets 33G Use 4 times daily as directed to check blood glucose E11.9 100 Each 1 3 Active [employer] Ultra In Vitro Strip (Glucose Blood) Use [...] as of this encounter (statuses as of 10/28/2023) Active Problems Problem Noted Date Diagnosed Date [...] as of this encounter (statuses as of 10/28/2023) Resolved Problems Problem Noted Date Diagnosed Date [...] as of this encounter (statuses as of 10/28/2023) Immunizations Name Administration Dates Next Due COVID-19 [...] 11/04/2023 1:00 PM EST Office Visit Pharmacy, [address] [place] [address] [facility] [address] [place] [address] 05/18/2024 2:00 PM EDT Office Visit [facility] [address] [facility] [place] [address] Bebe Abbasi PA-C [address] [place] [address] Scheduled Orders Name Type Priority Associated Diagnoses Orde r Schedule MYCODE SUBSEQUENT ADULT Lab Routine MyCode Research Other*[id number] Every 6 Months for 2 Occurrences starting 10/28/2023 until 11/16/2024 Health Maintenance Due Date Last Done Comments [...] this encounter Medical Devices Implanted Type Area Tubing Supervisor Device Identifier Shelf Expiration Date Model / Serial / Lot Lens 21.5 Mx60e - [id number] - [id number] Implanted:Qty: 1 on 09/16/2018 by Edgar Pandya MD at OR [facility] Left: Eye BAUSCH & LOMB 06/01/2021 [id number]-40.5 / [id number] / [id number] Lens Intraoc 21.0 - [id number] - [id number] Implanted:Qty: 1 on 09/25/2018 by Edgar Pandya MD at OR [facility] Right: Eye BAUSCH & LOMB 04/01/2021 [id number] / [id number] / [id number] documented as of this encounter Visit Diagnoses Diagnosis MyCode Research Other*[id number] documented in this encounter Care Teams Computer Systems Analyst Relationship Specialty Start Date End Date Marcelino Mae DO [address] [place] [address] PCP - General Family Medicine 06/10/18 documented as of this encounter
--- OUTSIDE RECORDS SUMMARY | 2024-01-01 23:09 | External Medical Summary | Summary of Care ---
Author Name Unknown Organization [facility] Address [address] [facility] [place] [address] Phone [phone] Care Team Providers Care Pacs Specialist Name Role Phone Tu Marcelino Vokeenan Primary Care Provider Reason for Visit * Reason Onset Date Comments Other 10/01/2023 Encounter Details Date Type Department Care Team (Late st Contact Info) Description 10/01/2023 Telephone Pharmacy Call Center [address] [place] [address] [facility] [address] [facility] [place] [id number] Other Allergies Active Allergy Reactions Criticality Noted [...] WITH LEVEMIR 100 Each 2 3 Active [employer] Ultra 2 w/Device Kit Use to test blood glucose E11.9 1 Kit 0 3 Active EUROBOXTouch Delica Lancets 33G Use 4 times daily as directed to check blood glucose E11.9 100 Each 1 3 Active EUROBOXToEsperion [employer] Ultra In Vitro Strip (Glucose Blood) Use [...] encounter Miscellaneous Notes * Telephone Encounter - aJnis Baumann CPhT - 10/01/2023 12:31 PM EST [facility] calling to request levothyroxine. Advise Rx was sent less than 5 minutes ago. Thank you, Janis Baumann Tech 1 [facility] ([facility] (formerly Telepharmacy) 10/01/2023, 12:31 PM * Telephone Encounter - Radha Tan RP - 10/01/2023 12:25 PM EST Patient Phone Numbers Spoke to patient's via phone. Patient needs refill of levothyroxine, it was refilled. Also states repagliniade on back order, recommending to try another pharmacy. [facility] if unable to obtain. Radha Tan, Pharm D, [facility] Clinical Pharmacist 10/01/2023, 12:27 PM * Telephone Encounter - Silvia Junior PHARM Tech - 10/01/2023 12:12 PM EST Caller's name: Jo Preferred call back number(OFFICE NUMBER FOR ): [phone] Reason for call: Medication question: Pt is frustrated and said she can't see to make phonecalls she hasn't taken any of her meds and said they are all on back order not sure which ones due to her being frantic. She said she was having an anxiety attack on the phone. Please advse and return her call. Thank you, Silvia Junior [facility] 10/01/2023,12:12 PM documented in this encounter Plan of Treatment Upcoming Encounters Date Type Department Care Team (Late st Contact Info) Description 10/25/2023 1:00 PM EST Office Visit Pharmacy, [facility] 132 [facility] [place] [address] [facility] [address] [facility] [place] [address] 05/18/2024 2:00 PM EDT Office Visit Neurology [facility] 200 [facility] [place] [address] Bebe Ababsi PA-C 200 [facility] [place] [address] Health Maintenance Due Date Last Done Comments [...] this encounter Medical Devices Implanted Type Area Welder Gas Device Identifier Shelf Expiration Date Model / Serial / Lot Lens 21.5 Mx60e - [id number] - [id number] Implanted:Qty: 1 on 09/16/2018 by Edgar Pandya MD at OR [facility] Left: Eye BAUSCH & LOMB 06/01/2021 [id number]-18.5 / [id number] / [id number] Lens Intraoc 21.0 - [id number] - [id number] Implanted:Qty: 1 on 09/25/2018 by Edgar Pandya MD at OR [facility] Right: Eye BAUSCH & LOMB 04/01/2021 [id number] / [id number] / [id number] documented as of this encounter Visit Diagnoses Diagnosis Hypothyroidism, unspecified type Type 2 diabetes mellitus with hemoglobin A1c goal of less than 7.5% (HCC) documented in this encounter Care Teams Pacs Specialist Relationship Specialty Start Date End Date Marcelino Mae DO [address] [place] [address] PCP - General Family Medicine 06/10/18 documented as of this encounter
--- OUTSIDE RECORDS SUMMARY | 2024-01-01 23:09 | External Medical Summary | Summary of Care ---
Author Name Unknown Organization [facility] Address [address] [facility] [place] [address] Phone [phone] Care Team Providers Care Real Estate Agency Principal Name Role Phone Mamadou Mae DO Primary Care Provider Reason for Visit * Reason Comments eRx-Medication Refill Encounter Details Date Type Department Care Team (Late st Contact Info) Description 09/04/2023 Refill Family Practice [facility] 132 [facility] [place] [address] Nilda Mae MD [address] [place] [address] Allergies Active Allergy Reactions Criticality Noted Date Comments Penicillins Edema airway,Hives High 07/04/2000 Statins Muscle pain High 10/25/2014 Had to go to physical therapy-trouble moving documented as of this encounter (statuses as of 09/05/2023) Medications Medication Sig Dispensed Refills Start Date [...] needed. 350 g 1 05/14/20 22 Active Levothyroxine Sodium 50 MCG Oral Tablet (Levoxyl)Indications :Hypothyroidism, unspecified type Take by mouth 1 Tablet in the morning. (at least 30 min prior to breakfast or other meds). 90 Tablet 3 06/21/20 22 Active metFORMIN HCl 1000 MG Oral Tablet (Glucophage) TAKE 1 TABLET BY MOUTH TWO TIMES DAILY WITH MORNING AND EVENING MEALS 180 Tablet 1 12/08/19 23 Active Escitalopram Oxalate 10 MG Oral Tablet (Lexapro) Take 1 Tablet by mouth in the morning. 90 Tablet 3 12/18/19 23 Active Repaglinide 2 MG Oral Tablet (Prandin)Indications :Type 2 diabetes mellitus with hemoglobin A1c goal of less than 7.5% (HCC) TAKE 2 TABLETS BY MOUTH WITH BREAKFAST, 1 TABLET BY MOUTH WITH LUNCH (IF EATEN) AND 2 TABLETS BY MOUTH WITH DINNER OR DIRECTED 450 Tablet 1 01/18/20 23 Active BD Pen Needle Susan 2nd Gen 32G X 4 MM (Insulin Pen Needle) INJECT EVERY DAY WITH LEVEMIR 100 Each 2 02/01/20 23 Active Metconnex Ultra 2 w/Device Kit Use to test blood glucose E11.9 1 Kit 0 04/18/20 23 Active Metconnex Delica Lancets 33G Use 4 times daily as directed to check blood glucose E11.9 100 Each 1 04/22/20 23 Active Metconnex Ultra In Vitro Strip (Glucose Blood) Use 4 times daily as directed to test blood glucose E 11.9 100 Strip 5 04/22/20 23 Active LORazepam 0.5 MG Oral Tablet (Ativan)Indications: Essential tremor,Abnormal movement of jaw,RAFIA (generalized anxiety disorder),Panic disorder Take 1 Tablet by mouth 2 times a day as needed for Anxiety. 60 Tablet 0 04/27/20 Active Lisinopril 5 MG Oral Tablet (Prinivil)Indication s:HTN, goal below 140/90 Take 1 Tablet by mouth daily at noon. 90 Tablet 3 05/07/20 23 Active Tresiba FlexTouch 100 UNIT/ML Subcutaneous Solution Pen-injector (Insulin Degludec) Inject 28 Units under the skin in the morning. 30 mL 3 07/26/20 Active Pioglitazone HCl 15 MG Oral Tablet (Actos) Take 1 Tablet by mouth in the morning. 30 Tablet 5 07/29/20 23 Active Omeprazole 20 MG Oral Capsule Delayed Release (PriLOSEC) Take 1 Capsule by mouth in the morning. 1 hour before the first meal of the day. 90 Capsule 1 08/28/20 Active Trulicity 1.5 MG/0.5ML Subcutaneous Solution Pen-injector (Dulaglutide) INJECT 1.5MG SUBCUTANEOUSLY (UNDER THE SKIN) ONCE A WEEK 2 mL 2 09/05/19 24 Active Trulicity 1.5 MG/0.5ML Subcutaneous Solution Pen-injector (Dulaglutide) INJECT 1.5 MILLIGRAMS UNDER THE SKIN ONCE A WEEK 2 mL 2 06/15/20 23 024 Discontinued documented as of this encounter (statuses as of 09/05/2023) Active Problems Problem Noted Date Diagnosed Date [...] as of this encounter (statuses as of 09/05/2023) Resolved Problems Problem Noted Date Diagnosed Date [...] as of this encounter (statuses as of 09/05/2023) Immunizations Name Administration Dates Next Due COVID-19 mRNA, LNP-s, No Pre serve, 2-Dose Series ([employer]) 07/21/2021,11/16/2020,10/27/2020 Covid-19, Mrna, Lnp-s, Pf, B ivalent, [...] encounter Miscellaneous Notes * Telephone Encounter - Levon Baron [facility] - 09/05/2023 11:27 AM EST Signed Prescriptions: Disp Refills Trulicity 1.5 MG/0.5ML Subcutaneous Soluti*2 mL 2 Sig: INJECT 1.5MG SUBCUTANEOUSLY (UNDER THE SKIN) ONCE A WEEKAuthorizing Provider: MAMADOU MAE User: LEVON BARON documented in this encounter Plan of Treatment Upcoming Encounters Date Type Department Care Team (Late st Contact Info) Description 10/25/2023 1:00 PM EST Office Visit Pharmacy, [facility] 132 [facility] [place] [address] [facility] [place] [address] 05/18/2024 2:00 PM EDT Office Visit Neurology [facility] [address] [place] [address] Bebe Abbasi PA-C [address] [place] [address] Health Maintenance Due Date Last Done Comments [...] this encounter Medical Devices Implanted Type Area Taxicab Starter Device Identifier Shelf Expiration Date Model / Serial / Lot Lens 21.5 Mx60e - [id number] - [id number] Implanted:Qty: 1 on 09/16/2018 by Edgar Pandya MD at OR [facility] Left: Eye BAUSCH & LOMB 06/01/2021 [id number]-[id number] / [id number] Lens Intraoc 21.0 - [id number] - [id number] Implanted:Qty: 1 on 09/25/2018 by Edgar Pandya MD at [facility] Right: Eye BAUSCH & LOMB 04/01/2021 [id number] / [id number] / [id number] documented as of this encounter Care Teams Real Estate Agency Principal Relationship Specialty Start Date End Date Mamadou Mae DO [address] [place] [address] PCP - General Family Medicine 06/10/18 documented as of this encounter
--- OUTSIDE RECORDS SUMMARY | 2024-01-01 23:09 | External Medical Summary | Summary of Care ---
Author Name Unknown Organization [facility] Address [address] [facility] [place] [address] Phone [phone] Care Team Providers Care Power Plant Operators Supervisor Name Role Phone Marcelino Mae DO Primary Care Provider Encounter Details Date Type Department Care Team (Late st Contact Info) Description 08/23/2023 Orders Only Family Practice [facility] [address] [place] [address] Marcelino Mae DO [address] [place] [address] Allergies Active Allergy Reactions Criticality Noted Date Comments Penicillins Edema airway,Hives High 07/04/2000 Statins Muscle pain High 10/25/2014 Had to go to physical therapy-trouble moving documented as of this encounter (statuses as of 08/23/2023) Medications Medication Sig Dispensed Refills Start Date [...] as needed. 350 g 1 05/14/2022 Active Levothyroxine Sodium 50 MCG Oral Tablet (Levoxyl)Indications:H ypothyroidism, unspecified type Take by mouth 1 Tablet in the morning. (at least 30 min prior to breakfast or other meds). 90 Tablet 3 06/21/2022 Active Omeprazole 20 MG Oral Capsule Delayed Release (PriLOSEC) Take 1 Capsule by mouth at bedtime. 1 hour before the first meal of the day 90 Capsule 3 09/10/2022 Active Additional Information Patient taking differently:20 mg OralDaily(AM), 1 hour before the first meal of the day, Reported on 02/07/2023 metFORMIN HCl 1000 MG Oral Tablet (Glucophage) TAKE 1 TABLET BY MOUTH TWO TIMES DAILY WITH MORNING AND EVENING MEALS 180 Tablet 1 12/07/2022 Active Escitalopram Oxalate 10 MG Oral Tablet (Lexapro) Take 1 Tablet by mouth in the morning. 90 Tablet 3 12/17/2022 Active Repaglinide 2 MG Oral Tablet (Prandin)Indications:T ype 2 diabetes mellitus with hemoglobin A1c goal of less than 7.5% (HCC) TAKE 2 TABLETS BY MOUTH WITH BREAKFAST, 1 TABLET BY MOUTH WITH LUNCH (IF EATEN) AND 2 TABLETS BY MOUTH WITH DINNER OR DIRECTED 450 Tablet 1 01/17/2023 Active BD Pen Needle Susan 2nd Gen 32G X 4 MM (Insulin Pen Needle) INJECT EVERY DAY WITH LEVEMIR 100 Each 2 01/31/2023 Active VitalFields Ultra 2 w/Device Kit Use to test blood glucose E11.9 1 Kit 0 04/18/2023 Active OneTouch Delica Lancets 33G Use 4 times daily as directed to check blood glucose E11.9 100 Each 1 04/22/2023 Active OneTouch Ultra In Vitro Strip (Glucose [...] at noon. 90 Tablet 3 05/07/2023 Active Trulicity 1.5 MG/0.5ML Subcutaneous Solution Pen-injector (Dulaglutide) INJECT 1.5 MILLIGRAMS UNDER THE SKIN ONCE A WEEK 2 mL 2 06/15/2023 Active Tresiba FlexTouch 100 UNIT/ML Subcutaneous Solution Pen-injector (Insulin Degludec) Inject 28 Units under the skin in the morning. 30 mL 3 07/26/2023 Active Pioglitazone HCl 15 MG Oral Tablet (Actos) Take 1 Tablet by mouth in the morning. 30 Tablet 5 07/29/2023 Active documented as of this encounter (statuses as of 08/23/2023) Active Problems Problem Noted Date Diagnosed Date [...] as of this encounter (statuses as of 08/23/2023) Resolved Problems Problem Noted Date Diagnosed Date [...] as of this encounter (statuses as of 08/23/2023) Immunizations Name Administration Dates Next Due COVID-19 mRNA, LNP-s, No Pre serve, 2-Dose Series ([employer]) 07/21/2021,11/16/2020,10/27/2020 Covid-19, Mrna, Lnp-s, Pf, B ivalent, 30 Mcg, IM, 12 yrs and above ([employer] Contin[employer]) 06/08/2022 Pneumococcal Conjugate Vacc, 13 Valent (Prevnar) [...] 10/25/2023 1:00 PM EST Office Visit Pharmacy, [facility] [address] [place] [address] [address] [facility] [address] [place] [address] 05/18/2024 2:00 PM EDT Office Visit Neurology [place] [facility] [place] [address] [facility] [place] [address] Bebe Abbasi PA-C 200 [facility] [place] [address] Health Maintenance Due Date Last Done Comments [...] 02/07/2023, Additional history exists Diabetic Eye Exam 08/23/2024 08/22/2023, , 03/07/2023, Additional history exists DXA [...] this encounter Medical Devices Implanted Type Area Flight Engineer Manager Device Identifier Shelf Expiration Date Model / Serial / Lot Lens 21.5 Mx60e - [id number] - [id number] Implanted:Qty: 1 on 09/16/2018 by Edgar Pandya MD at OR [facility] Left: Eye BAUSCH & LOMB 06/01/2021 [id number]-52.5 / [id number] / [id number] Lens Intraoc 21.0 - [id number] - [id number] Implanted:Qty: 1 on 09/25/2018 by Edgar Pandya MD at OR [facility] Right: Eye BAUSCH & LOMB 04/01/2021 [id number] / [id number] / [id number] documented as of this encounter Procedures Procedure Name Priority Date/Time Associated Diagnosis Comments DIABETIC EYE EXAM Routine 08/22/2023 documented in this encounter Results * DIABETIC EYE EXAM (08/22/2023) 08/22/2023 History Per Patient OTHER OUTSIDE LAB (SEE SCANNED REPORT) documented in this encounter Care Teams Power Plant Operators Supervisor Relationship Specialty Start Date End Date Marcelino Mae DO [address] [place] [id number] PCP - General Family Medicine 06/10/18 documented as of this encounter
--- OUTSIDE RECORDS SUMMARY | 2024-01-01 23:09 | External Medical Summary ---
Author Name Unknown Address Unknown Organization K01:[facility] - [address] [place] [address] Laboratory Report Ordering Provider Test Date Status AVRIL RODRIGUEZ 10/22/2023 15:07:31 Final Observation Date Value Abnormality Reference (Units ) Status MYCODE SPECIMEN-LAV 10/22/2023 15:07:31 Freezing of extracted DNA, whole blood and/or serum. Final Performing Location [facility] - [address] [place] [address]
--- OUTSIDE RECORDS SUMMARY | 2024-01-01 23:09 | External Medical Summary | Summary of Care ---
Author Name Unknown Organization [facility] Address [address] [facility] [place] [address] Phone [phone] Care Team Providers Care Processing Mgr Name Role Phone Mae Marcelino Vokeenan Primary Care Provider Reason for Visit * Reason Onset Date Comments Advice 11/11/2023 Encounter Details Date Type Department Care Team (Late st Contact Info) Description 11/11/2023 Telephone Pharmacy, [facility] [address] [facility] [place] [address] [facility] [address] [facility] [place] [address] Advice Allergies Active Allergy Reactions Criticality Noted Date Comments Penicillins Edema airway,Hives High 07/04/2000 Statins Muscle pain High 10/25/2014 Had to go to physical therapy-trouble moving documented as of this encounter (statuses as of 11/11/2023) Medications Medication Sig Dispensed Refills Start Date [...] WITH LEVEMIR 100 Each 2 3 Active SferraToAnacle Systems Ultra 2 w/Device Kit Use to test blood glucose E11.9 1 Kit 0 3 Active OneTouch Delica Lancets 33G Use 4 times daily as directed to check blood glucose E11.9 100 Each 1 3 Active SferraTouch Ultra In Vitro Strip (Glucose Blood) Use [...] OR DIRECTED 450 Tablet 1 4 Active Dulaglutide 0.75 MG/0.5ML Subcutaneous Solution Pen-injector (Trulicity) Inject 0.75 mg under the skin once a week. 2 mL 11 4 Active documented as of this encounter (statuses as of 11/11/2023) Active Problems Problem Noted Date Diagnosed Date [...] as of this encounter (statuses as of 11/11/2023) Resolved Problems Problem Noted Date Diagnosed Date [...] as of this encounter (statuses as of 11/11/2023) Immunizations Name Administration Dates Next Due COVID-19 mRNA, LNP-s, No Pre serve, 2-Dose Series ([employer]) 07/21/2021,11/16/2020,10/27/2020 Covid-19, Mrna, Lnp-s, Pf, B ivalent, [...] Notes * Telephone Encounter - Radha Tan RPh - 11/11/2023 3:06 PM EDT Patient Phone Numbers Spoke to patient's via phone. Will reduce dose to trulicity 0.75 mg as unable to tolerate 3mg weekly. Radha Tan, Pharm D, BCACP Clinical Pharmacist 11/11/2023, 3:07 PM * Telephone Encounter - Vicky Clements PHARM Tech - 11/11/2023 2:55 PM EDT Caller's name: clair Preferred call back number(OFFICE NUMBER FOR ): [phone] Reason for call: pt is out of the trulicity and it is on backorder. Asking if alt or what she can do Thank you, Vicky Clements [employer] Manager Centralized Clinical Pharmacy Services ([facility]PS) (Formerly Telepharmacy) 11/11/2023,2:55 PM documented in this encounter Plan of Treatment Upcoming Encounters Date Type Department Care Team (Late st Contact Info) Description 02/03/2024 2:30 PM EDT Office Visit Pharmacy, [facility] [address] [place] [address] [facility] [address] [place] [address] 05/18/2024 2:00 PM EDT Office Visit Neurology [facility] [address] [place] [address] [place] [address] Bebe Abbasi PA-C [address] [place] [address] [place] [address] Health Maintenance Due Date Last Done Comments [...] this encounter Medical Devices Implanted Type Area Mortgage Loan Processing Clerk Device Identifier Shelf Expiration Date Model / Serial / Lot Lens 21.5 Mx60e - [id number] - [id number] Implanted:Qty: 1 on 09/16/2018 by Edgar Pandya MD at OR [facility] Left: Eye BAUSCH & LOMB 06/01/2021 [id number] / [id number] / [id number] Lens Intraoc 21.0 - [id number] - [id number] Implanted:Qty: 1 on 09/25/2018 by Edgar Pandya MD at OR [facility] Right: Eye BAUSCH & LOMB 04/01/2021 [id number] / [id number] / [id number] documented as of this encounter Care Teams Processing Mgr Relationship Specialty Start Date End Date Marcelino Mae DO [address] [place] [address] PCP - General Family Medicine 06/10/18 documented as of this encounter
--- OUTSIDE RECORDS SUMMARY | 2024-01-01 23:09 | External Medical Summary | Summary of Care ---
Author Name Unknown Organization [facility] Address [address] [place] [facility] [place] [address] Phone [phone] Care Team Providers Care Wafer Production Lead Worker Name Role Phone Roberta Maereina Vokeenan Primary Care Provider Reason for Visit * Reason Onset Date Comments Medication Question 07/29/2023 Encounter Details Date Type Department Care Team (Late st Contact Info) Description 07/29/[address] [address] [facility] [place] [address] Medication Question Allergies Active Allergy Reactions Criticality Noted Date Comments Penicillins Edema airway,Hives High 07/04/2000 Statins Muscle pain High 10/25/2014 Had to go to physical therapy-trouble moving documented as of this encounter (statuses as of 07/29/2023) Medications Medication Sig Dispensed Refills Start Date [...] WITH LEVEMIR 100 Each 2 01/31/2023 Active OneTouch Ultra 2 w/Device Kit Use to test blood glucose E11.9 1 Kit 0 04/18/2023 Active [employer] Delica Lancets 33G Use 4 times daily as directed to check blood glucose E11.9 100 Each 1 04/22/2023 Active Mitochon SystemsTouch Ultra In Vitro Strip (Glucose Blood) Use [...] as of this encounter (statuses as of 07/29/2023) Active Problems Problem Noted Date Diagnosed Date [...] 8.0% 01/05/2019 History of colon polyps 12/25/2018 RFAIA (generalized anxiety disorder) 06/10/2018 HTN, goal below 140/90 11/07/2015 Overview: Per HTN Protocol #27. Statin intolerance 05/27/2013 documented as of this encounter (statuses as of 07/29/2023) Resolved Problems Problem Noted Date Diagnosed Date [...] as of this encounter (statuses as of 07/29/2023) Immunizations Name Administration Dates Next Due COVID-19 mRNA, LNP-s, No Pre serve, 2-Dose Series ([employer]) 07/21/2021,11/16/2020,10/27/2020 Covid-19, Mrna, Lnp-s, Pf, B ivalent, 30 Mcg, IM, 12 yrs and above (Pfizer) 06/08/2022 Pneumococcal Conjugate Vacc, 13 Valent (Prevnar) 10/28/2014 Pneumococcal Polysaccharide PPV23 (Pneumovax) 10/08/2016,03/23/2014(),04/29/2006 SEASONAL INFLUENZA, PF, 6 M & Above, IM , (FLULAVAL or FLUZONE) 06/10/2018 Season Influenza, Quad, PF, Adjuvanted, 65+ Yrs, IM (FLUAD) 05/14/2022 Seasonal Influenza, Quadriva lent Hd, 65+ Yrs [...] Telephone Encounter - Radha Tan RPh - 07/29/2023 11:52 AM EST Patient Phone Numbers Hemoglobin AIC Results: Lab Results Component Value Date/Time HEMOGLOBIN A1C - [facility] 10.2 (H) 07/26/2023 01:08 PM HEMOGLOBIN A1C - [facility] 9.6 (H) 02/07/2023 12:06 PM HEMOGLOBIN A1C - [facility] 8.8 (H) 05/14/2022 12:45 PM HEMOGLOBIN A1C - [facility] 8.3 (H) 10/08/2019 03:36 PM HEMOGLOBIN A1C - [facility] 9.4 (H) 01/05/2019 03:53 PM HEMOGLOBIN A1C - [facility] 8.1 (H) 10/21/2017 07:02 AM Repaglinide 2 mg 2 tabs with breakfast, 1 with lunch, and 2 with dinner Metformin 1000 mg AM and 1/2 at PM STOP: Levemir 28 units daily START: Tresiba 28 units daily Trulicity 1.5 mg weekly START: Pioglitazone 15 mg daily Spoke to patient via phone. Will start pioglitazone 15 mg daily to see if this improvement. Patientis agreeable. Radha Tan, Pharm D, BCACP Clinical Pharmacist 07/29/2023, 11:55 AM documented in this encounter Plan of Treatment Upcoming Encounters Date Type Department Care Team (Late st Contact Info) Description 10/25/2023 1:00 PM EST [facility] [place] [address] [address] [address] [facility] [address] [place] [address] 05/18/2024 2:00 PM EDT Office Visit Neurology [place] [facility] [place] [address] [place] [address] Bebe Abbasi PA-C [address] [place] [address] Health Maintenance Due Date Last Done Comments Hepatitis B (1 of 3 - Risk 3-dose series) 2001 COVID-19 Vaccine ( - season) 2023 06/08/2022, 07/21/2021, 11/16/2020, Additional history exists Influenza Vaccine (FLU shot) (#1) 2023 05/14/2022, 05/03/2021, 05/18/2020, Additional history exists Depression Screening 05/14/2023 05/14/2022 Diabetic Foot Exam 05/14/2023 05/14/2022, 0 03/15/2021, 04/07/2020, Additional history exists HbA1c 01/24/2024 07/26/2023, 06/0 04/2023, 05/14/2022, Additional history exists B-12 02/08/2024 02/07/2023, 05/03, 05/01/2021, Additional history exists Diabetic Eye Exam 03/07/2024 03/07/2023, , 01/17/2023, Additional history exists TSH 04/23/2024 04/23/2023, 05/03, 05/01/2021, Additional history exists Albumin/Creatinine Ratio 05/10/2024 023, 02/07/2023, 01/25/2021, Additional history exists GFR 07/26/2024 07/26/2023, 04/03, 02/07/2023, Additional history exists DXA Scan 05/10/2026 05/10/2021, [...] this encounter Medical Devices Implanted Type Area Inspector Glass Or Mirror Device Identifier Shelf Expiration Date Model / Serial / Lot Lens 21.5 Mx60e - [id number] - [id number] Implanted:Qty: 1 on 09/16/2018 by Edgar Pandya MD at OR [facility] Left: Eye BAUSCH & LOMB 06/01/2021 [id number]-[id number] / [id number] / [id number] Lens Intraoc 21.0 - [id number] - [id number] Implanted:Qty: 1 on 09/25/2018 by Edgar Pandya MD at OR [facility] Right: Eye BAUSCH & LOMB 04/01/2021 [id number] / [id number] / [id number] documented as of this encounter Care Teams Wafer Production Lead Worker Relationship Specialty Start Date End Date Marcelino Mae DO [address] [place] [address] PCP - General Family Medicine 06/10/18 documented as of this encounter
--- OUTSIDE RECORDS SUMMARY | 2024-01-01 23:09 | External Medical Summary ---
Author Name Unknown Address Unknown Organization K01:[facility] [address] [place] [address] Laboratory Report Ordering Provider Test Date Status AVRIL RODRIGUEZ 10/22/2023 15:07:31 Final Observation Date Value Abnormality Reference (Units ) Status MYCODE SPECIMEN-SST 10/22/2023 15:07:31 Freezing of extracted DNA, whole blood and/or serum. Final Performing Location LABORATORY [facility] - [address] [place] [address]
--- OUTSIDE RECORDS SUMMARY | 2024-01-01 23:09 | External Medical Summary | Summary of Care ---
Author Name Unknown Organization [facility] Address [address] [facility] [place] [address] Phone [phone] Care Team Providers Care Materials Scheduler Name Role Phone Mamadou Mae DO Primary Care Provider Reason for Visit * Reason Comments eRx-Medication Refill Encounter Details Date Type Department Care Team (Late st Contact Info) Description 09/24/[address] [facility] [address] [place] [address] Mamadou Mae DO [address] [place] [address] Type 2 diabetes mellitus with hemoglobin A1c goal of less than 7.5% ([facility]) Allergies Active Allergy Reactions Criticality Noted Date Comments Penicillins Edema airway,Hives High 07/04/2000 Statins Muscle pain High 10/25/2014 Had to go to physical therapy-trouble moving documented as of this encounter (statuses as of 09/25/2023) Medications Medication Sig Dispensed Refills Start Date [...] to 180 days 1 Each 1 10/08/19 20 Active Additional Information Patient not taking.Reported on [...] meds). 90 Tablet 3 06/21/20 22 Active Escitalopram Oxalate 10 MG Oral Tablet (Lexapro) Take 1 Tablet by mouth in the morning. 90 Tablet 3 12/18/19 23 Active BD Pen Needle Susan 2nd Gen 32G X 4 MM (Insulin Pen Needle) INJECT EVERY DAY WITH LEVEMIR 100 Each 2 02/01/20 23 Active Biotie Therapiesuch Ultra 2 w/Device Kit Use to test blood glucose E11.9 1 Kit 0 04/18/20 23 Active Biotie Therapiesuch Delica Lancets 33G Use 4 times daily as directed to check blood glucose E11.9 100 Each 1 04/22/20 23 Active Biotie Therapiesuch Ultra In Vitro Strip (Glucose Blood) Use [...] in the morning. 30 Tablet 5 07/29/20 Active Omeprazole 20 MG Oral Capsule Delayed Release (PriLOSEC) Take 1 Capsule by mouth in the morning. 1 hour before the first meal of the day. 90 Capsule 1 08/28/20 23 Active Trulicity 1.5 MG/0.5ML Subcutaneous Solution Pen-injector (Dulaglutide) INJECT 1.5MG SUBCUTANEOUSLY (UNDER THE SKIN) ONCE A WEEK 2 mL 2 09/05/19 24 Active Repaglinide 2 MG Oral Tablet (Prandin)Indications :Type 2 diabetes mellitus with hemoglobin A1c goal of less than 7.5% (HCC) TAKE 2 TABLETS BY MOUTH EVERY DAY WITH BREAKFAST, 1 TABLET WITH LUNCH (IF EATEN) AND 2 TABLETS WITH DINNER OR DIRECTED 450 Tablet 1 09/25/19 24 Active metFORMIN HCl 1000 MG Oral Tablet (Glucophage) TAKE 1 TABLET BY MOUTH TWO TIMES DAILY WITH MORNING AND EVENING MEALS 180 Tablet 1 09/25/19 24 Active metFORMIN HCl 1000 MG Oral Tablet (Glucophage) TAKE 1 TABLET BY MOUTH TWO TIMES DAILY WITH MORNING AND EVENING MEALS 180 Tablet 1 12/08/19 23 024 Discontinued Repaglinide 2 MG Oral Tablet (Prandin)Indications :Type 2 diabetes mellitus with hemoglobin A1c goal of less than 7.5% (HCC) TAKE 2 TABLETS BY MOUTH WITH BREAKFAST, 1 TABLET BY MOUTH WITH LUNCH (IF EATEN) AND 2 TABLETS BY MOUTH WITH DINNER OR DIRECTED 450 Tablet 1 01/18/20 23 024 Discontinued documented as of this encounter (statuses as of 09/25/2023) Active Problems Problem Noted Date Diagnosed Date [...] as of this encounter (statuses as of 09/25/2023) Resolved Problems Problem Noted Date Diagnosed Date [...] as of this encounter (statuses as of 09/25/2023) Immunizations Name Administration Dates Next Due COVID-19 mRNA, LNP-s, No Pre serve, 2-Dose Series (Deal[employer]) 07/21/2021,11/16/2020,10/27/2020 Covid-19, Mrna, Lnp-s, Pf, B ivalent, [...] 2:35 PM EST Sexual Orientation Straight 10/08/2019 2 :35 PM EST Job Start Date Occupation Industry Not on file Not on file Not on file documented as of this encounter Miscellaneous Notes * Telephone Encounter - Nafisa Moser [facility] - 09/25/2023 11:46 AM ESTSigned Prescriptions: Disp Refills Repaglinide 2 MG Oral Tablet (Prandin) 450 Ta*1 Sig: TAKE 2 TABLETS BY MOUTH EVERY DAY WITH BREAKFAST, 1 TABLET WITH LUNCH (IF EATEN) AND 2 TABLETS WITH DINNER OR DIRECTEDAuthorizing Provider: MAMADOU MAE User: NAFISA MOSER metFORMIN HCl 1000 MG Oral Tablet (Glucoph*180 Ta*1 Sig: TAKE 1 TABLET BY MOUTH TWO TIMES DAILYWITH MORNING AND EVENING MEALSAuthorizing Provider: MAMADOU MAE User: LOIS MOSER documented in this encounter Plan of Treatment Upcoming Encounters Date Type Department Care Team (Late st Contact Info) Description 10/25/2023 1:00 PM EST Office Visit Pharmacy, [facility] [place] [address] [place] [address] [facility] [address] [place] [address] 05/18/2024 2:00 PM EDT Office Visit Neurology [facility] [place] [address] [facility] [address] Bebe Abbasi PA-C [address] [place], [place] [address] Health Maintenance Due Date Last Done Comments [...] this encounter Medical Devices Implanted Type Area Pharmacogeneticist Device Identifier Shelf Expiration Date Model / Serial / Lot Lens 21.5 Mx60e - [id number] - [id number] Implanted:Qty: 1 on 09/16/2018 by Edgar Pandya MD at OR [facility] Left: Eye BAUSCH & LOMB 06/01/2021 [id number]-99.5 / [id number] / [id number] Lens Intraoc 21.0 - [id number] - [id number] Implanted:Qty: 1 on 09/25/2018 by Edgar Pandya MD at OR [facility] Right: Eye BAUSCH & LOMB 04/01/2021 [id number] / [id number] / [id number] documented as of this encounter Visit Diagnoses Diagnosis Type 2 diabetes mellitus with hemoglobin A1c goal of less than 7.5% ([facility]) documented in this encounter Care Teams Materials Scheduler Relationship Specialty Start Date End Date Mamadou Mae DO [address] [place] [address] PCP - General Family Medicine 06/10/18 documented as of this encounter
--- OUTSIDE RECORDS SUMMARY | 2024-01-01 23:09 | External Medical Summary ---
Author Name Unknown Address Unknown Organization K01:LABORATORY [facility] - [address] [place] [address] Laboratory Report Ordering Provider Test Date Status AVRIL RODRIGUEZ 10/22/2023 15:07:31 Final Observation Date Value Abnormality Reference (Units ) Status MYCODE SPECIMEN-SST 10/22/2023 15:07:31 Freezing of extracted DNA, whole blood and/or serum. Final Performing Location LABORATORY C - [address] [place] [address]
--- OUTSIDE RECORDS SUMMARY | 2024-01-01 23:10 | External Medical Summary ---
Author Name Unknown Address Unknown Organization K0G:LABORATORY [facility] [place] [address] - [address] [place] [address] Laboratory Report Ordering Provider Test Date Status JONNA MARKHAM 07/26/2023 13:08:44 Final Observation Date Value Abnormality Reference (Units ) Status WBC, Total 07/26/2023 13:08:44 6.41 4.00-10.8 0 (K/uL) Final RBC 07/26/2023 13:08:44 4.65 3.85-5.15 (M/uL) Final Hemoglobin 07/26/2023 13:08:44 13.7 12.0-15.3 (g/dL) Final HCT 07/26/2023 13:08:44 41.7 36.0-45.2 (%) Final MCV 07/26/2023 13:08:44 89.7 81.5-97.5 (fL) Final MCH 07/26/2023 13:08:44 29.5 27.0-34.0 (pg) Final MCHC 07/26/2023 13:08:44 32.9 32.0-36.0 (g/dL) Final RDW 07/26/2023 13:08:44 12.8 11.5-15.5 (%) Final Platelets 07/26/2023 13:08:44 366 140-400 (K /uL) Final MPV 07/26/2023 13:08:44 9.9 6.6-11.1 ( fL) Final Performing Location LABORATORY [facility] [place] [facility] 0 - [address] [place] [id number]
--- OUTSIDE RECORDS SUMMARY | 2024-01-01 23:10 | External Medical Summary ---
Author Name Unknown Address Unknown Organization K0G:LABORATORY [place] [address] - [address] [place] [id number] Laboratory Report Ordering Provider Test Date Status JONNA MARKHAM 07/26/2023 13:08:44 Final Observation Date Value Abnormality Reference (Units ) Status BUN 07/26/2023 13:08:44 12 6-20 (mg/dL) Final Creatinine 07/26/2023 13:08:44 0.6 0.5-1.0 (mg/dL) Final Glomerular filtration rate/1.73 sq M.predicted [Volume Rate/Area] in Serum, Plasma or Blood by Creatinine-based formula (CKD-EPI) 07/26/2023 13:08:44 89 >=60 (mL/min) Final eGFR is calculated based on the CKD-EPI 2020 equation SODIUM 07/26/2023 13:08:44 134 Below low normal 135 -146 (mmol/L) Final Potassium 07/26/2023 13:08:44 4.7 3.5-5.1 (m mol/L) Final Cl 07/26/2023 13:08:44 97 Below low normal 98- 107 (mmol/L) Final CO2 07/26/2023 13:08:44 26 22-32 (mmo l/L) Final Anion gap 07/26/2023 13:08:44 11 7-15 (mmol /L) Final Glucose 07/26/2023 13:08:44 400 Above high normal 70 -120 (mg/dL) Final Calcium 07/26/2023 13:08:44 9.8 8.4-10.2 ( mg/dL) Final Performing Location LABORATORY [facility] [place] [facility] 0 - [address] [place] [address]
--- OUTSIDE RECORDS SUMMARY | 2024-01-01 23:10 | External Medical Summary | Summary of Care ---
Author Name Unknown Organization [facility] Address [address] [facility] [place] [address] Phone [phone] Care Team Providers Care Unit Technician Name Role Phone Mae Marcelino Vokeenan Primary Care Provider Reason for Visit * Reason Comments Appointment Encounter Details Date Type Department Care Team (Late st Contact Info) Description 07/16/2023 6:10 PM [facility] Pharmacy Pharmacy, [facility] [address] [facility] [place] [address] [facility] [address] [facility] [place] [address] Type 2 diabetes mellitus with hemoglobin A1c goal of less than 8.0% ([facility])* Allergies Active Allergy Reactions Criticality Noted Date Comments Penicillins Edema airway,Hives High 07/04/2000 Statins Muscle pain High 10/25/2014 Had to go to physical therapy-trouble moving documented as of this encounter (statuses as of 07/16/2023) Medications Medication Sig Dispensed Refills Start Date [...] other meds). 90 Tablet 3 2 Active Omeprazole 20 MG Oral Capsule Delayed Release (PriLOSEC) Take 1 Capsule by mouth at bedtime. 1 hour before the first meal of the day 90 Capsule 3 3 Active Additional Information Patient taking differently:20 mg OralDaily(AM), 1 hour before the first meal of the day, Reported on 02/07/2023 Levemir FlexTouch 100 UNIT/ML Subcutaneous Solution Pen-injector (Insulin Detemir)Indications:Ty pe 2 diabetes mellitus with hemoglobin A1c goal of less than 8.0% ([facility]) INJECT 28 UNITS SUBCUTANEOUSLY (UNDER THE SKIN) EVERY DAY 30 mL 3 3 Active metFORMIN HCl 1000 MG Oral Tablet [...] WITH LEVEMIR 100 Each 2 3 Active Globant Ultra 2 w/Device Kit Use to test blood glucose E11.9 1 Kit [address] Delica Lancets 33G Use 4 times daily as directed to check blood glucose E11.9 100 Each 1 3 Active Globant Ultra In Vitro Strip (Glucose Blood) Use [...] A WEEK 2 mL 2 3 Active documented as of this encounter (statuses as of 07/16/2023) Active Problems Problem Noted Date Diagnosed Date [...] as of this encounter (statuses as of 07/16/2023) Resolved Problems Problem Noted Date Diagnosed Date [...] as of this encounter (statuses as of 07/16/2023) Immunizations Name Administration Dates Next Due COVID-19 mRNA, LNP-s, No Pre serve, 2-Dose Series ([employer] 07/21/2021,11/16/2020,10/27/2020 Covid-19, Mrna, Lnp-s, Pf, B ivalent, [...] as of this encounter Progress Notes * Melani Botello PHARM Tech - 07/16/2023 9:36 AM EST Patient Phone Numbers Spoke with patient to schedule [facility] appointment for diabetes management. Appointment scheduled as noted below. 07/26/2023 Thank you, Melani Botello Energy Infrastructure Engineer [facility] ([facility]) (formerly Telepharmacy) [phone] 07/16/2023,9:36 AM documented in this encounter Plan of Treatment Upcoming Encounters Date Type Department Care Team (Late st Contact Info) Description 07/26/2023 1:30 PM EST Office Visit Pharmacy, [facility] [address] [facility] [place] [address] [facility] [address] [facility] [place] [address] 05/18/2024 2:00 PM EDT Office Visit Neurology [facility] [address] [facility] [place] [address] Bebe Abbasi PA-C [address] [facility] [place] [address] Health Maintenance Due Date Last Done Comments Hepatitis B (1 of 3 - Risk 3-dose series) 2001 Diabetic Eye Exam 11/01/2022 11/01/2021, , 11/17/2019, Additional history exists COVID-19 Vaccine ( season) 2023 06/08/2022, 07/21/2021, 11/16/2020, Additional history exists Influenza Vaccine (FLU shot) (#1) 2023 05/14/2022, 05/03/2021, 05/18/2020, Additional history exists Depression Screening 05/14/2023 05/14/2022 Diabetic Foot Exam 05/14/2023 05/14/2022, 0 03/15/2021, 04/07/2020, Additional history exists HbA1c 08/09/2023 02/07/2023, 05/03, 08/01/2021, Additional history exists B-12 02/08/2024 02/07/2023, 05/03, 05/01/2021, Additional history exists GFR 04/23/2024 04/23/2023, 06/0 04/2023, 05/14/2022, Additional history exists TSH 04/23/2024 04/23/2023, 05/03, 05/01/2021, Additional history exists Albumin/Creatinine Ratio 05/10/2024 023, 02/07/2023, 01/25/2021, Additional history exists DXA Scan 05/10/2026 05/10/2021, [...] this encounter Medical Devices Implanted Type Area Security Advisor Device Identifier Shelf Expiration Date Model / Serial / Lot Lens 21.5 Mx60e - [id number] - [id number] Implanted:Qty: 1 on 09/16/2018 by Edgar Pandya MD at OR [facility] Left: Eye BAUSCH & LOMB 06/01/2021 [id number]-[id number] / [id number] / [id number] Lens Intraoc 21.0 - [id number] - [id number] Implanted:Qty: 1 on 09/25/2018 by Edgar Pandya MD at OR [facility] Right: Eye BAUSCH & LOMB 04/01/2021 [id number] / [id number] / [id number] documented as of this encounter Visit Diagnoses Diagnosis Type 2 diabetes mellitus with hemoglobin A1c goal of less than 8.0% (HCC)- Primary documented in this encounter Care Teams Unit Technician Relationship Specialty Start Date End Date Marcelino Mae DO [address] [place] [address] PCP - General Family Medicine 06/10/18 documented as of this encounter
--- OUTSIDE RECORDS SUMMARY | 2024-01-01 23:10 | External Medical Summary ---
Author Name Unknown Address Unknown Organization K01:LABORATORY [facility] - [address] [facility] [address] Laboratory Report Ordering Provider Test Date Status SENA FREED 07/26/2023 13:08:44 Final Observation Date Value Abnormality Reference (Units ) Status HbA1C 07/26/2023 13:08:44 10.2 Above high normal 4. 0-5.6 (%) Final The use of HbA1c to monitor glycemic status is based on normal hemoglobin and HbA composition. This test should not be used in patients with abnormal hemoglobin that affects the half life of the red blood cell or the in vivo glycation rates. Glucose, estimated average 07/26/2023 13:08:44 246 Above high normal <126 (mg/dL) Naman mondragon Performing Location LABORATORY [facility] - [address] [facility] [address]
--- OUTSIDE RECORDS SUMMARY | 2024-01-01 23:10 | External Medical Summary | Summary of Care ---
Author Name Unknown Organization [facility] Address [address] [facility] [place] [address] Phone [phone] Care Team Providers Care Analytics Specialist Name Role Phone Mae Marcelino Vokeenan Primary Care Provider Reason for Visit * Reason Comments Dosage Adjustment In Person (Anticoag Cl inic) Diabetes Follow-Up Encounter Details Date Type Department Care Team (Late st Contact Info) Description 07/26/2023 1:30 PM EST Office Visit Pharmacy, [facility] [address] [facility] [place] [address] [facility] [address] [facility] [place] [address] Type 2 diabetes mellitus with hemoglobin A1c goal of less than 8.0% ([facility])* Allergies Active Allergy Reactions Criticality Noted Date Comments Penicillins Edema airway,Hives High 07/04/2000 Statins Muscle pain High 10/25/2014 Had to go to physical therapy-trouble moving documented as of this encounter (statuses as of 07/26/2023) Medications Medication Sig Dispensed Refills Start Date [...] 3 Active Repaglinide 2 MG Oral Tablet (Prandin)Indications: [...] WITH LEVEMIR 100 Each 2 3 Active OneTouch Ultra 2 w/Device Kit Use [...] the morning. 30 mL 3 3 Active Levemir FlexTouch 100 UNIT/ML Subcutaneous Solution Pen-injector (Insulin Detemir)Indications:T ype 2 diabetes mellitus with hemoglobin A1c goal of less than 8.0% ([facility]) INJECT 28 UNITS SUBCUTANEOUSLY (UNDER THE SKIN) EVERY DAY 30 mL 3 3 023 Discontin ued(Medic ation/Dos e Changed) documented as of this encounter (statuses as of 07/26/2023) Active Problems Problem Noted Date Diagnosed Date [...] as of this encounter (statuses as of 07/26/2023) Resolved Problems Problem Noted Date Diagnosed Date [...] as of this encounter (statuses as of 07/26/2023) Immunizations Name Administration Dates Next Due COVID-19 mRNA, LNP-s, No Pre serve, 2-Dose Series ([employer]) 07/21/2021,11/16/2020,10/27/2020 Covid-19, Mrna, Lnp-s, Pf, B ivalent, [...] this encounter Progress Notes * Radha Tan, [facility] - 07/26/2023 1:05 PM EST Medication Therapy [facility] [...] 1000 mg AM and 1/2 at PM Levemir 28 units daily Trulicity 1.5 mg weekly Medication Injection Site: Abdomen Lifestyle: Diet: improved Glucose Review/SMBG: Readings per patient memory/recall: Patient is currently testing 0-1 times a day Hypoglycemia: Does your blood sugar go below 70 mg/dL? No Hyperglycemia symptoms present: none Recent Labs Units 02/07/23 1206 05/14/22 1245 08/01/21 1401 HEMOGLOBIN A1C - [facility] % 9.6* 8.8* 9.0* Recent Labs Units 04/23/23 1427 02/07/23 1206 05/14/22 1245 ESTIMATED GLOMERULAR FILTRATION RATE - [facility] mL/min 89 89 >90 CREATININE - [facility] mg/dL 0.6 0.6 0.6 HYPERTENSION: Patient on ACEi/ARB: no, dizziness BP Readings from Last 3 Encounters: 05/16/23 104/56 04/23/23 90/60 02/07/23 127/65 Blood pressure at goal: yes HYPERLIPIDEMIA: Patient is taking moderate or high intensity statin: No Current regimen: Not indicated based on age Goal statin intensity: moderate The ASCVD Risk score (Tyler KHAN, et al., 2019) failed to calculate for the following reasons: The 2019 ASCVD risk score is only valid for ages 40 to 79 Recent Labs Units 02/07/23 1206 05/14/22 1245 LDL CHOLESTEROL (CALCULATED) - [facility] mg/dL 156* 140* HEALTH MAINTENANCE REVIEW: Health Maintenance Due Topic Date Due Hepatitis B (1 of 3 - Risk 3-dose series) Never done Influenza Vaccine (FLU shot) (1) 05/03/2023 COVID-19 Vaccine ( - 2022- season) 2023 Diabetic Foot Exam 05/14/2023 Depression Screening 05/14/2023 HbA1c 08/09/2023 ASSESSMENT & PLAN: ICD-10-CM 1. Type 2 diabetes mellitus with hemoglobin A1c goal of less than 8.0% (HCC) E11.9 BG Readings - Blood sugars uncontrolled. Awaiting A1c result today. Medications - Reviewed current regimen, patient is adherent to regimen. Will start pioglitazone if patient's A1c remains elevated. Diet, Exercise, Lifestyle - No significant lifestyle changes since last visit. Discussed with patient. Patient is agreeable to SMBG 0-1 time(s) daily. Patient aware to contact clinic if any hypoglycemia before next visit. MEDICATION CHANGES: yes, see below; preferred pharmacy: [facility] Medications: Repaglinide 2 mg 2 tabs with breakfast, 1 with lunch, and 2 with dinner Metformin 1000 mg AM and 1/2 at PM STOP: Levemir 28 units daily START: Tresiba 28 units daily Trulicity 1.5 mg weekly HEALTH MAINTENANCE INTERVENTIONS: Labs: awaiting A1c Immunizations: Up to Date Foot Exam: Up to Date Eye Exam: Up to Date Annual Wellness Visit: Up to Date FOLLOW UP: Return to clinic in 12 weeks 10/25/2023 Radha Tan [facility] Clinical Pharmacist - Religious Leader Medication Therapy Management Clinic 07/26/2023, 1:05 PM documented in this encounter Plan of Treatment Upcoming Encounters Date Type Department Care Team (Late st Contact Info) Description 10/25/2023 1:00 PM EST Office Visit Pharmacy, [facility] [place] [address] [place] [address] [facility] [address] [place] [address] 05/18/2024 2:00 PM EDT Office Visit Neurology Harrison Alonzo [place] [address] [place] [address] Bebe Abbasi PA-C [address] [place] [address] Pending Results Name Type Priority Associated Diagnoses Date /Time HEMOGLOBIN A1C Lab Routine Type 2 diabetes mellitus with hemoglobin A1c goal of less than 8.0% (HCC) 07/26/2023 1:08 PM EST Scheduled Orders Name Type Priority Associated Diagnoses Orde r Schedule HEMOGLOBIN A1C Lab Routine Type 2 diabetes mellitus with hemoglobin A1c goal of less than 8.0% (HCC) Expected: 07/26/2023 (Approximate), Expires: 07/26/2024 Health Maintenance Due Date Last Done Comments [...] 03/07/2024 03/07/2023, , 01/17/2023, Additional history exists GFR 04/23/2024 04/23/2023, 06/0 [...] this encounter Medical Devices Implanted Type Area Mixing Plant Operator Device Identifier Shelf Expiration Date Model / Serial / Lot Lens 21.5 Mx60e - [id number] - [id number] Implanted:Qty: 1 on 09/16/2018 by Edgar Pandya MD at OR [facility] Left: Eye BAUSCH & LOMB 06/01/2021 [id number]-13.5 / [id number] / [id number] Lens Intraoc 21.0 - [id number] - [id number] Implanted:Qty: 1 on 09/25/2018 by Edgar Pandya MD at OR [facility] Right: Eye BAUSCH & LOMB 04/01/2021 [id number] / [id number] / [id number] documented as of this encounter Visit Diagnoses Diagnosis Type 2 diabetes mellitus with hemoglobin A1c goal of less than 8.0% ([facility])- Primary documented in this encounter Care Teams Analytics Specialist Relationship Specialty Start Date End Date Marcelino Mae DO [address] [place] [address] PCP - General Family Medicine 06/10/18 documented as of this encounter
--- OUTSIDE RECORDS SUMMARY | 2024-01-01 23:10 | External Medical Summary | Summary of Care ---
Author Name Unknown Organization [facility] Address [address] [facility] [place] [address] Phone [phone] Care Team Providers Care Chute Operator Name Role Phone Marcelino Mae DO Primary Care Provider Reason for Visit * Reason Comments Outpatient Testing Encounter Details Date Type Department Care Team (Late st Contact Info) Description 07/26/2023 1:10 PM EST Laboratory Laboratory, [facility] [address] [facility] [place] [id number] [facility] [address] [facility] [address] Thrombocytosis; Hypercalcemia Allergies Active Allergy Reactions Criticality Noted Date [...] A WEEK 2 mL 2 3 Active Levemir FlexTouch 100 UNIT/ML Subcutaneous Solution Pen-injector (Insulin Detemir)Indications:T ype 2 diabetes mellitus with hemoglobin A1c goal of less than 8.0% (HCC) INJECT 28 UNITS SUBCUTANEOUSLY (UNDER THE SKIN) [...] mRNA, LNP-s, No Pre serve, 2-Dose Series ([employer]) 07/21/2021,11/16/2020,10/27/2020 Covid-19, Mrna, Lnp-s, Pf, B ivalent, [...] 07/26/2023 1:30 PM EST [facility] [place] [address] [place] [address] [facility] [address] [place] [address] Type 2 diabetes mellitus with hemoglobin A1c goal of less than 8.0% (HCC)* 05/18/2024 2:00 PM EDT Office Visit Neurology [facility] [place] [address] [facility] [place] [address] Bebe Abbasi PA-C [address] [facility] [place] [address] Pending Results Name Type Priority Associated Diagnoses Date /Time BASIC METABOLIC PANEL Lab Routine Hypercalcemia 07/26/2023 1:08 PM EST Health Maintenance Due Date Last [...] this encounter Medical Devices Implanted Type Area Communications Technologist Device Identifier Shelf Expiration Date Model / Serial / Lot Lens 21.5 [id number] - [id number] - [id number] Implanted:Qty: 1 on 09/16/2018 by Edgar Pandya MD at OR [facility] Left: Eye [employer] 06/01/2021 [id number]-[id number] / [id number] / [id number] Lens Intraoc 21.0 - [id number] - [id number] Implanted:Qty: 1 on 09/25/2018 by Edgar Pandya MD at OR [facility] Right: Eye [employer] 04/01/2021 [id number] / [id number] / [id number] documented as of this encounter Procedures Procedure Name Priority Date/Time Associated Diagnosis Comments DIFFERENTIAL, AUTOMATED Routine 07/26/2023 1:08 PM EST Thrombocytosis CBC Routine 07/26/2023 1:08 PM EST Thrombocytosis CBC Routine 07/26/2023 1:08 PM EST Thrombocytosis documented in this encounter Results * DIFFERENTIAL, AUTOMATED (07/26/2023 1:08 PM EST) WBC 6.41 4.00 - 10.80 K/uL 07/26/2023 1:18 PM EST [facility] Neutrophils % 49.9 40.0 - 75.0 % 07/26/2023 1:18 PM EST [facility] Lymphocytes % 40.1 18.0 - 42.0 % 07/26/2023 1:18 PM EST [facility] Monocytes % 7.2 1.0 - 11.0 % 07/26/2023 1:18 PM EST [facility] Eosinophils % 2.2 0.0 - 6.0 % 07/26/2023 1:18 PM EST [facility] Basophils % 0.6 0.0 - 2.0 % 07/26/2023 1:18 PM EST [facility] Absolute Neutrophils 3.20 1.80 - 7.70 K/uL 07/26/2023 1:18 PM EST [facility] Absolute Lymphocytes 2.57 1.00 - 4.80 K/ul 07/26/2023 1:18 PM EST [facility] Absolute Monocytes 0.46 0.00 - 1.10 K/uL 07/26/2023 1:18 PM EST [facility] Absolute Eosinophils 0.14 0.00 - 0.70 K/uL 07/26/2023 1:18 PM EST [facility] Absolute Basophils 0.04 0.00 - 0.20 K/uL 07/26/2023 1:18 PM EST [facility] Blood Venous blood specimen / Unknown Venipuncture / Unknown 07/26/2023 1:08 PM EST 07/26/2023 1:08 PM EST Alina Urias DO LAB BLOOD ORDERABLE S [facility] [address] [place] [address] * CBC (07/26/2023 1:08 PM EST) WBC 6.41 4.00 - 10.80 K/uL 07/26/2023 1:18 PM EST [facility] RBC 4.65 3.85 - 5.15 M/uL 07/26/2023 1:18 PM EST [facility] HGB 13.7 12.0 - 15.3 g/dL 07/26/2023 1:18 PM EST [facility] HCT 41.7 36.0 - 45.2 % 07/26/2023 1:18 PM EST [facility] MCV 89.7 81.5 - 97.5 fL 07/26/2023 1:18 PM EST [facility] MCH 29.5 27.0 - 34.0 pg 07/26/2023 1:18 PM EST [facility] MCHC 32.9 32.0 - 36.0 g/dL 07/26/2023 1:18 PM EST [facility] RDW 12.8 11.5 - 15.5 % 07/26/2023 1:18 PM EST [facility] PLT 366 140 - 400 K/uL 07/26/2023 1:18 PM EST [facility] MPV 9.9 6.6 - 11.1 fL 07/26/2023 1:18 PM EST [facility] Blood Venous blood specimen / Unknown Venipuncture / Unknown 07/26/2023 1:08 PM EST 07/26/2023 1:08 PM EST Alina Urias DO LAB BLOOD ORDERABLE S [facility] [place] [address] documented in this encounter Visit Diagnoses Diagnosis Type 2 diabetes mellitus with hemoglobin A1c goal of less than 8.0% (HCC)- Primary Thrombocytosis Essential thrombocythemia Hypercalcemia documented in this encounter Care Teams Chute Operator Relationship Specialty Start Date End Date Marcelino Mae DO [address] [place] [address] PCP - General Family Medicine 06/10/18 documented as of this encounter
--- OUTSIDE RECORDS SUMMARY | 2024-01-01 23:10 | External Medical Summary ---
Author Name Unknown Address Unknown Organization [id number] [address] [place] [address] Laboratory Report Ordering Provider Test Date Status JONNA MARKHAM 07/26/2023 13:08:44 Final Observation Date Value Abnormality Reference (Units ) Status SYNC LEUKOCYTES IN BLOOD BY AUTOMATED COUNT 07/26/2023 13:08:44 6.41 4.00-10.80 (K/uL) Final Segs 07/26/2023 13:08:44 49.9 40.0-75.0 (%) Final Lymphs % 07/26/2023 13:08:44 40.1 18.0-42.0 (%) Final Monos 07/26/2023 13:08:44 7.2 1.0-11.0 (%) Final Eosinophils 07/26/2023 13:08:44 2.2 0.0-6.0 (%) Final Basos 07/26/2023 13:08:44 0.6 0.0-2.0 (%) Final Absolute Segs 07/26/2023 13:08:44 3.20 1.80-7.70 (K/uL) Final Lymphs, absolute 07/26/2023 13:08:44 2.57 1.00-4.80 (K/ul) Final Monos, Abs 07/26/2023 13:08:44 0.46 0.00-1.10 (K/uL) Final Eos, Abs 07/26/2023 13:08:44 0.14 0.00-0.70 (K/uL) Final Basos, Abs 07/26/2023 13:08:44 0.04 0.00-0.20 (K/uL) Final Performing Location [facility] [address] [place] [address]
[2024-01-02 09:40] LABS: Basophils # (auto) 0.05 K/uL (0.00-0.20); Basophils % (auto) 0.7 %; Eosinophils # (auto) 0.19 K/uL (0.00-0.50); Eosinophils % (auto) 2.6 %; Hemoglobin 11.8 g/dl (12.0-16.0); Immature Granulocytes # (auto) 0.03 K/uL (0.01-0.20); Immature Granulocytes % (auto) 0.4 %; Lymphocytes # (auto) 2.21 K/uL (1.20-3.40); Lymphocytes % (auto) 29.7 %; Mean Corpuscular Hgb Conc 32.8 g/dL (32.0-36.0); Mean Corpuscular Volume 88.5 fL (80.0-100.0); Mean Platelet Volume 9.7 fL (9.4-12.4); Monocytes # (auto) 0.63 K/uL (0.11-0.59); Monocytes % (auto) 8.5 %; Neutrophils # (auto) 4.33 K/uL (1.40-6.50); Neutrophils % (auto) 58.1 %; Platelet Count 282 K/uL (130-400); RDW Coefficient of Variation 12.9 % (11.5-14.5); RDW Standard Deviation 41.4 fL (36.4-46.3); Red Blood Count 4.07 M/uL (4.20-5.40); White Blood Count 7.44 K/ul (4.8-10.8)
[2024-01-02 09:54] LABS: BUN Creatinine Ratio 21.2 (10-20); Calcium 8.3 mg/dl (8.6-10.3); Est GFR (African American) 103.1 ml/min; Potassium 3.9 mmol/L (3.5-5.1)
--- NOTE | 2024-01-02 11:59 | Consultation ---
Date of Consultation January 02, 2024 Assessment & Plan (1) Closed sacral fracture: Imaging and treatment plan has been reviewed with Dr. Ribeiro. Treatment plan is conservative. No surgical intervention required. Ambulate ad perfecto. May need the assistance of a walker while this heals. Would recommend a doughnut when she is in a seated position for comfort. Will sign off. Please not hesitate to contact us with any further questions. History of Present Illness Reason for Consultation: Sacral fracture Attending Physician: Ramiro Weinstein MD History of Present Illness This is an 83-year-old female who sustained a fall 2 days ago. Her history is obtained for her as she is quite somnolent in a chair to and unable to provide history. Her reports 2 days ago she was at home alone and had fallen. He arrived proximal roughly 30 minutes after her fall. She was confused. At some point she called 911 and they were arriving when her arrived at [facility]. reports she typically ambulates independently. Allergies Allergy/AdvReac Type Severity Reaction Status Date / Time Penicillins Allergy Severe EDEMA OF Verified 12/31/23 18:04 AIRWAY, HIVES Zjgmoyv-OTV-WeK Reductase AdvReac Intermediate MUSCLE Verified 12/31/23 18:04 Inhibitor PAIN/CRAMPS Home Medications Medication Instructions Recorded Confirmed Type metformin 1,000 mg tablet 1,000 mg PO BIDM 08/29/21 12/31/23 History escitalopram oxalate 10 mg tablet 10 mg PO QAM 10/19/21 12/31/23 History levothyroxine 50 mcg tablet 50 mcg PO DAILYBB 10/19/21 12/31/23 History lisinopril 5 mg tablet 5 mg PO QAM 10/19/21 12/31/23 History omeprazole 20 mg capsule,delayed 20 mg PO DAILYBB 10/19/21 12/31/23 History release vitamins A,C,A-vjlq-yemphq 2,148 2 tab PO QDL 10/19/21 12/31/23 History mcg-113 mg-45 mg-17.4 mg tablet (PreserVision AREDS) repaglinide 2 mg tablet See Rx Instructions .Route .COMPLEX 04/18/23 12/31/23 History diclofenac sodium 1 % topical gel 4 g topical BID PRN PAIN, AFFECTED 12/31/23 12/31/23 History AREA dulaglutide 1.5 mg/0.5 mL 1.5 mg subcut WK 12/31/23 12/31/23 History subcutaneous pen injector (Trulicity) insulin degludec 100 unit/mL (3 28 unit subcut QAM 12/31/23 12/31/23 History mL) subcutaneous pen (Tresiba FlexTouch U-100 insulin) lorazepam 0.5 mg tablet 0.5 mg PO BID ANXIETY 12/31/23 12/31/23 History nitroglycerin 0.4 mg sublingual 0.4 mg sublingual DIRECTED PRN 12/31/23 12/31/23 History tablet (Nitrostat) CHEST PAIN/SEVERE REFLUX pioglitazone 15 mg tablet 15 mg PO QAM 12/31/23 12/31/23 History Patient History Surgical History History of cholecystectomy Family History Mother Hearing loss Father Heart disease Other No family history of allergies No family history of bleeding disorder Denies family history of Cancer Hypertension Stroke Asthma Social History Smoking Status: Never smoker Tobacco Type: Cigarettes packs per day: 1; Do You Dip or Chew Tobacco: No; Hx Alcohol Use: No Hx Substance Use: No Preferred Language: Filipino Communication Ability: Effective 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 She is very somnolent. She does arouse to her name. She sitting in chair. Results & Data Vital Signs (Past 12 Hours) Vital Signs Temp Pulse Pulse Resp BP Pulse Ox O2 Del Method 01/02/24 11:22 36.7 C 69 20 117/69 93 Nasal Cannula 01/02/24 09:31 70 01/02/24 09:31 Room Air 01/02/24 07:59 37.3 C 71 20 126/85 97 Nasal Cannula 01/02/24 03:55 37.2 C 75 20 125/70 96 Nasal Cannula 01/02/24 00:03 37.7 C H 75 18 144/71 H 98 Nasal Cannula 01/02/24 00:03 85 O2 Flow Rate 01/02/24 11:22 2 01/02/24 09:31 01/02/24 09:31 01/02/24 07:59 2 01/02/24 03:55 3 01/02/24 00:03 3 01/02/24 00:03 Diagnostic Findings [place], [place] [phone] CT Scan Report Patient: MELINDA MAURER Admit Date: 12/31/23 MR#: [id number] Address1: [address] [facility] Acct ID:[id number] Address2: Date: 1940 [facility] Zip: [place] [address] Age: 83 Location: ED Sex: F Room/Bed: Att Phy: Diagnosis: FALL,VOMITING,COMFUSSED Anna Phy: Marcelino Mae DO Service Date: 12/31/23 Fam Phy: Interpreting Phy: Jamaal Alexander MDAdmit Phy: Ordering Phy: Bunny Pineda M.D. cc: ~ CHEST CT WITH CONTRAST, ABDOMEN AND PELVIS CT WITH INTRAVENOUS CONTRAST CT DOSE: 3322.78 mGy.cm HISTORY: fall, ams, vomiting, back pain TECHNIQUE: Multiaxial CT images of the chest, abdomen, and pelvis were performed following the intravenous administration of contrast. A dose lowering technique was utilized adhering to the principles of ALARA. COMPARISON: Abdomen and pelvis CT 10/19/2021. FINDINGS: Chest CT: No acute fractures within the chest. The central airways are patent. No pneumothorax. No pleural effusions. Emphysema. There is a 3 mm subpleural nodule within the left upper lobe on image 94. Mild dependent changes seen at the lung bases. Small nodular densities at the lung apices favor scarring. Normal thyroid gland. Normal esophagus. No mediastinal hematoma or lymphadenopathy. The heart is normal in size. No pericardial effusion. Focal mild aneurysmal dilatation of the distal descending thoracic aorta on image 154 measuring 3.6 cm. No evidence for aortic dissection. The central pulmonary arteries are patent. Moderate coronary artery calcifications are noted. Abdomen/pelvis CT: No pneumoperitoneum. No pneumatosis. Mild focal deformity at the anterior cortex of S3 which extends into the left sacral wing best seen on image 257 consistent with an acute nondisplaced sacral fracture. There is a 2 cm duodenal diverticulum. Cholecystectomy. The liver, spleen, adrenal glands, and left kidney are unremarkable. No hydronephrosis. 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 There is a 5 mm lipoma within the pancreatic head. The main portal vein is patent. Calcified plaque within the normal caliber abdominal aorta. No retroperitoneal hematoma or lymphadenopathy. The bladder is unremarkable. There is a calcified subserosal 4 cm fibroid. Colonic diverticulosis. No evidence for acute diverticulitis. No bowel wall thickening or obstruction. Normal appendix. IMPRESSION: 1. No acute traumatic process within the chest. 2. An acute nondisplaced sacral fracture at the S3 level. 3. 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 4. Emphysema. 5. Additional findings as described above. ACT 112: Negative or not required by law. Electronically signed by: Jamaal Alexander M.D. 12/31/2023 5:20 PM Dictated: 12/31/23 1708 Transcribed: 12/31/23 170
[2024-01-02] MEDS: ACETAMINOPHEN 500 MG TAB PO SCH (12:10)
[2024-01-02] MEDS: LIDOCAINE 5% 1 PATCH TD SCH (12:55)
[2024-01-02] MEDS: KETOROLAC TROMETHAMINE 15 MG/ML VIAL IV PRN (17:54)
--- NOTE | 2024-01-02 18:06 | Hospitalist Progress Note ---
Date of Service January 02, 2024 Assessment & Plan (1) Fall: Plan: per admitting service notes with addendum: 83-year-old female with past medical history significant for type 2 diabetes, diabetic neuropathy, hypertension, statin intolerance, generalized anxiety dis order, depression who comes because of fall. As per he saw the patient around 1:30 PM working on her iPad. Around 3 PM he got a call from his and she was seemed confused so came to the house. And found her on the floor. Apparently she also called 911. EMS was able to get her up and bring to the hospital. Patient currently alert and awake and oriented. She does not remember exactly how she fell. Denies any headache. Vision is okay. Hard of hearing. No runny nose. Has some sore throat. No cough. No fevers. Had transient chest pain in the ER. Currently denies any chest pain. Currently denies shortness of breath. Has back pain. Has pain in left fingers. No abdominal pain. When she fell she had an episode of vomiting. She has a walker and cane at home but she does not use them as per the . Appetite is okay. No difficulty swallowing. She has some shakiness of the chin but states that happens when she is anxious. Fall Imaging shows sacral fractures Pain control Ortho consult- conservative management for now PT/OT Possible syncope Patient does not remember how she fell Neuro work up: Brain MRI no acute CVA EEG pending Cardiac workup: Echocardiogram unrevealing, EF 65 to 70%, mild concentric LVH, aortic valve sclerosis mild without significant aortic valvular stenosis, mild tricuspid regurg Telemetry unrevealing so far Orthostasis Orthostatic vital signs pending UTI Possibly contributing Urine culture: Gram-negative bacilli Ceftriaxone IV Diabetes Continue Lantus Sliding scale Will monitor Hypertension Lisinopril Will monitor GERD Omeprazole Hypothyroidism On Synthyroid GERD anxiety disorder Depression Lexapro Ativan as needed DVT prophylaxis Heparin subcu Disposition PT OT evaluation Lives with her plan of care discussed with patient and her in detail and at length all questions answered they are understanding, agreeable, comfortable with the plan of care Admission and Anticipated Discharge Date Admission Date: December 31, 2023 Subjective ff up for syncope, fall, etc seen resting in bed, sleeping but easily awakened states she feels tired still having lower back pain, worse with movement no recurrence of syncope/presyncope no chest pain, dyspnea, palpitations, dizziness no abdominal pain, problems with urination no other symptoms Review of Systems Review of Systems: all noted and negative except for above Physical Exam Physical Exam: General- oriented x 3, not in distress, speaks in sentences with no effort or accessory muscle use Eyes- anicteric Neck- no JVD Lungs- clear breath sounds bilaterally, no crackles/wheezing Heart- normal rate, regular rhythm; no murmurs Abdomen- normal bowel sounds, nondistended, soft, no tenderness Extremities- no pretibial edema, no calf tenderness Neuro- alert, oriented x 3; no gross focal neurologic deficits Skin- warm & dry Results & Data Results & Data Vital Signs (Past 12 Hours) Vital Signs Temp Pulse Pulse Resp BP Pulse Ox O2 Del Method 01/02/24 16:08 36.6 C 62 20 112/69 96 Nasal Cannula 01/02/24 15:10 62 01/02/24 11:22 36.7 C 69 20 117/69 93 Nasal Cannula 01/02/24 09:31 70 01/02/24 09:31 Room Air 01/02/24 07:59 37.3 C 71 20 126/85 97 Nasal Cannula O2 Flow Rate 01/02/24 16:08 1 01/02/24 15:10 01/02/24 11:22 2 01/02/24 09:31 01/02/24 09:31 01/02/24 07:59 2 all noted and reviewed including below
[2024-01-03 06:51] LABS: BUN Creatinine Ratio 28.3 (10-20); Calcium 8.2 mg/dl (8.6-10.3); Creatinine Clr Calc Pharmacy 88.3 ml/min; Est GFR (African American) 107.4 ml/min; Est GFR (Non-African American) 92.6 ml/min; Potassium 3.7 mmol/L (3.5-5.1)
--- NOTE | 2024-01-03 08:51 | Electrocardiogram Report ---
Test Reason : Blood Pressure : / mmHG Vent. Rate : 075 BPM Atrial Rate : 075 BPM P-R Int : 154 ms QRS Dur : 068 ms QT Int : 432 ms P-R-T Axes : 054 019 059 degrees QTc Int : 482 ms Normal sinus rhythm Normal ECG When compared with ECG of 31-DEC-2023 15:32, No significant change was found Confirmed by Kaushik Loyd ([id number]) on 01/03/2024 8:51:35 AM Referred By: REFERRED SELF Confirmed By:Kaushik Loyd
--- NOTE | 2024-01-03 12:19 | Electrocardiogram Report ---
Test Reason : Blood Pressure : / mmHG Vent. Rate : 072 BPM Atrial Rate : 072 BPM P-R Int : 156 ms QRS Dur : 090 ms QT Int : 402 ms P-R-T Axes : 042 006 053 degrees QTc Int : 440 ms Normal sinus rhythm Normal ECG When compared with ECG of 01-JAN-2024 07:58, (unconfirmed) T wave inversion no longer evident in Anterolateral leads Confirmed by Kaushik Loyd ([id number]) on 01/03/2024 12:18:51 PM Referred By: REFERRED SELF Confirmed By:Kaushik Loyd
[2024-01-03] MEDS: NITROFURANTOIN MONOHYDRATE 100 MG CAP PO SCH (17:30)
--- NOTE | 2024-01-03 17:43 | Electroencephalogram ---
EEG Procedure Note Date of Service January 03, 2024 Start / End Times Start Time: 06:15 End Time: 06:35 Referring Physician Ramiro Weinstein MD History An 83 year old female with syncope. EEG performed for evaluation of epileptiform activity. Home Medication List Medication Instructions Recorded Confirmed Type metformin 1,000 mg tablet 1,000 mg PO BIDM 08/29/21 12/31/23 History escitalopram oxalate 10 mg tablet 10 mg PO QAM 10/19/21 12/31/23 History levothyroxine 50 mcg tablet 50 mcg PO DAILYBB 10/19/21 12/31/23 History lisinopril 5 mg tablet 5 mg PO QAM 10/19/21 12/31/23 History omeprazole 20 mg capsule,delayed 20 mg PO DAILYBB 10/19/21 12/31/23 History release vitamins A,C,A-uaib-lajkze 2,148 2 tab PO QDL 10/19/21 12/31/23 History mcg-113 mg-45 mg-17.4 mg tablet (PreserVision AREDS) repaglinide 2 mg tablet See Rx Instructions .Route .COMPLEX 04/18/23 12/31/23 History diclofenac sodium 1 % topical gel 4 g topical BID PRN PAIN, AFFECTED 12/31/23 12/31/23 History AREA dulaglutide 1.5 mg/0.5 mL 1.5 mg subcut WK 12/31/23 12/31/23 History subcutaneous pen injector (Trulicity) insulin degludec 100 unit/mL (3 28 unit subcut QAM 12/31/23 12/31/23 History mL) subcutaneous pen (Tresiba FlexTouch U-100 insulin) lorazepam 0.5 mg tablet 0.5 mg PO BID ANXIETY 12/31/23 12/31/23 History nitroglycerin 0.4 mg sublingual 0.4 mg sublingual DIRECTED PRN 12/31/23 12/31/23 History tablet (Nitrostat) CHEST PAIN/SEVERE REFLUX pioglitazone 15 mg tablet 15 mg PO QAM 12/31/23 12/31/23 History Inpatient Medication List Acetaminophen (Acetaminophen 500 Mg Tab) 1,000 mg PO Q8H BETTINA Stop: 02/01/24 11:59 Last Admin: 01/03/24 13:19 Dose: 1,000 mg Documented By: Admin: 01/03/24 04:47 Dose: 1,000 mg Documented By: Admin: 01/02/24 20:37 Dose: 1,000 mg Documented By: Admin: 01/02/24 12:10 Dose: 1,000 mg Documented By: FLORENCIO Escitalopram Oxalate (Escitalopram Oxalate 10 Mg Tab) 10 mg PO QAM BETTINA Stop: 01/31/24 08:59 Last Admin: 01/03/24 07:53 Dose: 10 mg Documented By: Admin: 01/02/24 08:58 Dose: 10 mg Documented By: Admin: 01/01/24 08:56 Dose: 10 mg Documented By: ERICKA Heparin Sodium (Porcine) (Heparin Sod 5,000 Unit/0.5 Ml Vial) 5,000 units SQ Q12 BETTINA Stop: 01/30/24 23:09 Last Admin: 01/03/24 08:01 Dose: Not Given Documented By: Admin: 01/02/24 20:36 Dose: Not Given Documented By: Admin: 01/02/24 08:59 Dose: Not Given Documented By: Admin: 01/02/24 06:33 Dose: Not Given Documented By: Admin: 01/01/24 08:53 Dose: Not Given Documented By: Admin: 01/01/24 00:40 Dose: Not Given Documented By: BENJI Sodium Chloride (Nss) 1,000 mls @ 75 mls/hr IV .[id number] [facility] Stop: 01/31/24 17:44 Last Admin: 01/03/24 10:11 Dose: 75 mls/hr Documented By: Infusion: 01/03/24 09:57 Dose: Infused Documented By: Admin: 01/02/24 20:37 Dose: 75 mls/hr Documented By: Infusion: 01/02/24 20:37 Dose: Infused Documented By: Admin: 01/02/24 08:58 Dose: 75 mls/hr Documented By: Infusion: 01/02/24 07:59 Dose: Infused Documented By: Admin: 01/01/24 18:39 Dose: 75 mls/hr Documented By: MOLLY Insulin Aspart (Insulin Aspart Per Unit Charge) 0 units SC ACHS BETTINA Stop: 01/30/24 23:09 Last Admin: 01/03/24 13:22 Dose: 7 units Documented By: JAMILA Co-signed By: RENEA Admin: 01/03/24 08:50 Dose: 2 units Documented By: JAMILA Co-signed By: FLORENCIO Admin: 01/02/24 20:31 Dose: Not Given Documented By: Admin: 01/02/24 17:54 Dose: 2 units Documented By: FLORENCIO Co-signed By: KIMBERLEY Admin: 01/02/24 12:55 Dose: 2 units Documented By: FLORENCIO Co-signed By: KIMBERLEY Admin: 01/02/24 08:57 Dose: 2 units Documented By: FLORENCIO Co-signed By: KIMBERLEY Admin: 01/01/24 20:51 Dose: 1 units Documented By: SLIME Co-signed By: DEANGELO Admin: 01/01/24 18:35 Dose: 4 units Documented By: MOLLY Co-signed By: KIMBERLEY Admin: 01/01/24 13:53 Dose: 3 units Documented By: ERICKA Co-signed By: MARION Admin: 01/01/24 09:50 Dose: 1 units Documented By: ERICKA Co-signed By: DAYANNA Admin: 01/01/24 00:36 Dose: 1 units Documented By: BENJI Co-signed By: MARY ANN Insulin Glargine (Lantus Per Unit Charge) [facility] [place] Stop: 01/31/24 08:59 Last Admin: 01/03/24 08:50 Dose: 28 units Documented By: JAMILA Co-signed By: FLORENCIO Admin: 01/02/24 08:57 Dose: 28 units Documented By: FLORENCIO Co-signed By: KIMBERLEY Admin: 01/01/24 08:50 Dose: 28 units Documented By: ERICKA Co-signed By: BRAD Ketorolac Tromethamine (Ketorolac Tromethamine 15 Mg/Ml Vial) 15 mg IV Q6H PRN PRN Reason: moderate to severe pain Stop: 01/07/24 11:24 Last Admin: 01/02/24 17:54 Dose: 15 mg Documented By: FLORENCIO Levothyroxine Sodium (Levothyroxine Sodium 50 Mcg Tablet) [facility] Stop: 01/31/24 06:29 Last Admin: 01/03/24 04:47 Dose: 50 mcg Documented By: Admin: 01/02/24 06:32 Dose: 50 mcg Documented By: Admin: 01/01/24 06:10 Dose: 50 mcg Documented By: BENJI Lidocaine (Lidocaine 5% 1 Patch) 1 patch TD QAM [facility] Stop: 02/01/24 11:29 Last Admin: 01/03/24 07:53 Dose: 1 patch Documented By: Admin: 01/02/24 12:55 Dose: 1 patch Documented By: FLORENCIO Lisinopril (Lisinopril 5 Mg Tab) [facility] [place] Stop: 01/31/24 08:59 Last Admin: 01/03/24 07:53 Dose: 5 mg Documented By: Admin: 01/02/24 08:58 Dose: 5 mg Documented By: Admin: 01/01/24 08:56 Dose: 5 mg Documented By: ERICKA Miscellaneous (Remove Lidoderm Patch) 1 each N/A DAILY@2100 [facility] Stop: 02/01/24 20:59 Last Admin: 01/02/24 20:36 Dose: Not Given Documented By: SLIME Multivitamins/Minerals (Cerovite Adv Formula Tab) 2 tab PO QDL [facility] Stop: 01/31/24 11:29 Last Admin: 01/03/24 13:19 Dose: Not Given Documented By: Admin: 01/02/24 12:59 Dose: Not Given Documented By: Admin: 01/01/24 11:46 Dose: 2 tab Documented By: ERICKA Nitrofurantoin Macrocrystals (Nitrofurantoin Monohydrate 100 Mg Cap) 100 mg PO Q12H BETTINA Stop: 01/05/24 23:59 Last Admin: 01/03/24 17:30 Dose: 100 mg Documented By: JAMILA Pantoprazole Sodium (Pantoprazole 40 Mg Tab) 40 mg PO DAILYBB [facility] Stop: 01/31/24 06:29 Last Admin: 01/03/24 04:47 Dose: 40 mg Documented By: Admin: 01/02/24 06:32 Dose: 40 mg Documented By: Admin: 01/01/24 06:10 Dose: 40 mg Documented By: BENJI Discontinued Medications Sodium Chloride (Nss) 1,000 mls @ 999 mls/hr IV .Q1H1M ONE Stop: 12/31/23 17:58 Last Infusion: 12/31/23 20:56 Dose: Infused Documented By: Admin: 12/31/23 18:24 Dose: 999 mls/hr Documented By: JANETH Sodium Chloride (Nss) 1,000 mls @ 80 mls/hr IV .[id number] BETTINA Stop: 01/01/24 11:39 Last Infusion: 01/01/24 13:09 Dose: Infused Documented By: Admin: 01/01/24 00:39 Dose: 80 mls/hr Documented By: BENJI Aztreonam 2,000 mg/ Dextrose 100 mls @ 100 mls/hr IV Q8H BETTINA Stop: 01/11/24 00:00 Last Infusion: 01/03/24 09:15 Dose: Infused Documented By: Admin: 01/03/24 07:54 Dose: 100 mls/hr Documented By: Infusion: 01/03/24 00:52 Dose: Infused Documented By: Admin: 01/02/24 23:31 Dose: 100 mls/hr Documented By: Infusion: 01/02/24 16:24 Dose: Infused Documented By: Admin: 01/02/24 15:18 Dose: 100 mls/hr Documented By: Infusion: 01/02/24 11:32 Dose: Infused Documented By: Admin: 01/02/24 08:57 Dose: 100 mls/hr Documented By: Infusion: 01/02/24 02:17 Dose: Infused Documented By: Admin: 01/02/24 00:09 Dose: 100 mls/hr Documented By: Infusion: 01/01/24 18:45 Dose: Infused Documented By: Admin: 01/01/24 17:45 Dose: 100 mls/hr Documented By: Infusion: 01/01/24 08:54 Dose: Infused Documented By: Admin: 01/01/24 07:54 Dose: 100 mls/hr Documented By: Infusion: 01/01/24 02:26 Dose: Infused Documented By: Admin: 01/01/24 01:17 Dose: 100 mls/hr Documented By: BENJI Ioversol (Optiray 320 100ml) 92 ml IV ONCE ONE Stop: 12/31/23 16:48 Last Admin: 12/31/23 16:47 Dose: 92 ml Documented By: ROSA Lorazepam (Lorazepam 0.5 Mg Tab) 0.5 mg PO BID BETTINA Stop: 01/30/24 23:09 Last Admin: 01/01/24 08:59 Dose: 0.5 mg Documented By: Admin: 01/01/24 00:36 Dose: 0.5 mg Documented By: BENJI Lorazepam (Lorazepam 0.5 Mg Tab) 0.5 mg PO BID BETTINA Stop: 01/31/24 19:19 Last Admin: 01/02/24 08:57 Dose: 0.5 mg Documented By: Admin: 01/01/24 21:19 Dose: Not Given Documented By: Admin: 01/01/24 20:52 Dose: 0.5 mg Documented By: SLIME Morphine Sulfate (Morphine Sulfate 2 Mg/Ml Carp) 2 mg IV NOW STA Stop: 12/31/23 20:13 Last Admin: 12/31/23 20:42 Dose: 2 mg Documented By: JANETH Ondansetron HCl (Ondansetron Inj 2 Mg/Ml 2 Ml Vial) 4 mg IV NOW STA Stop: 12/31/23 15:40 Last Admin: 12/31/23 16:36 Dose: 4 mg Documented By: JANETH Trimethoprim/Sulfamethoxazole (Sulfamethoxazole/Trimethoprim Ds 800/160mg Tab) 1 tab PO NOW ONE Stop: 12/31/23 18:57 Last Admin: 12/31/23 20:41 Dose: 1 tab Documented By: JANETH Description This is a 21 electrode EEG with a single channel dedicated to limited EKG. The electrodes were placed in accordance with the International 10-20 system. REPORT: At the onset of the EEG, the patient is awake. The background activity consist of 8.5-9 Hz, persistent, posteriorly dominant, moderate amplitude, symmetric and rhythmic activity that is reactive to eye opening. Anteriorly, it consist of a mixture of low voltage indeterminate activity and 15-25 Hz, persistent, low amplitude, symmetric and rhythmic activity. Stepwise intermittent photic stimulation (1-21 Hz) and hyperventilation (3 minutes, good effort) do not induce any abnormalities. Drowsiness is characterized by low amplitude mixed frequency activity, roving eye movements, and decreased eye blinking and muscle artifact. Interpretation IMPRESSION: This is a normal awake and drowsy routine EEG. There is no evidence of focal slowing or epileptiform activity.
--- NOTE | 2024-01-03 18:57 | Hospitalist Progress Note ---
Date of Service January 03, 2024 Assessment & Plan (1) Fall: Plan: per admitting service notes with addendum: 83-year-old female with past medical history significant for type 2 diabetes, diabetic neuropathy, hypertension, statin intolerance, generalized anxiety dis order, depression who comes because of fall. As per he saw the patient around 1:30 PM working on her iPad. Around 3 PM he got a call from his and she was seemed confused so came to the house. And found her on the floor. Apparently she also called 911. EMS was able to get her up and bring to the hospital. Patient currently alert and awake and oriented. She does not remember exactly how she fell. Denies any headache. Vision is okay. Hard of hearing. No runny nose. Has some sore throat. No cough. No fevers. Had transient chest pain in the ER. Currently denies any chest pain. Currently denies shortness of breath. Has back pain. Has pain in left fingers. No abdominal pain. When she fell she had an episode of vomiting. She has a walker and cane at home but she does not use them as per the . Appetite is okay. No difficulty swallowing. She has some shakiness of the chin but states that happens when she is anxious. Possible metabolic encephalopathy Fall Imaging shows sacral fractures Pain control Ortho consult- conservative management for now PT/OT Possible syncope Patient does not remember how she fell Neuro work up: Brain MRI no acute CVA EEG pending Cardiac workup: Echocardiogram unrevealing, EF 65 to 70%, mild concentric LVH, aortic valve sclerosis mild without significant aortic valvular stenosis, mild tricuspid regurg Telemetry unrevealing so far Orthostasis Orthostatic vital signs pending UTI Possibly contributing Urine culture: Gram-negative bacilli Ceftriaxone IV Diabetes Continue Lantus Sliding scale Will monitor Hypertension Lisinopril Will monitor GERD Omeprazole Hypothyroidism On Synthyroid GERD anxiety disorder Depression Lexapro Ativan as needed DVT prophylaxis Heparin subcu Disposition PT OT evaluation Lives with her plan of care discussed with patient and her in detail and at length all questions answered they are understanding, agreeable, comfortable with the plan of care Admission and Anticipated Discharge Date Admission Date: December 31, 2023 Results & Data Results & Data Vital Signs (Past 12 Hours) Vital Signs Temp Pulse Pulse Resp BP Pulse Ox O2 Del Method 01/03/24 17:28 36.5 C 62 16 137/81 96 Room Air 01/03/24 15:36 74 01/03/24 12:24 71 18 121/77 95 Room Air 01/03/24 08:50 Nasal Cannula 01/03/24 07:46 36.5 C 62 20 138/76 96 Nasal Cannula 01/03/24 07:20 64 O2 Flow Rate 01/03/24 17:28 01/03/24 15:36 01/03/24 12:24 01/03/24 08:50 1 01/03/24 07:46 1 01/03/24 07:20
[2024-01-03] MEDS: MELATONIN 3 MG TAB PO PRN (22:19)
--- NOTE | 2024-01-04 16:31 | Discharge Summary ---
Discharge Summary Date of Service January 04, 2024 Admission HPI Per Admitting Provider 83-year-old female with past medical history significant for type 2 diabetes, diabetic neuropathy, hypertension, statin intolerance, generalized anxiety disorder, depression who comes because of fall. As per he saw the patient around 1:30 PM working on her iPad. Around 3 PM he got a call from his and she was seemed confused so came to the house. And found her on the floor. Apparently she also called 911. EMS was able to get her up and bring to the hospital. Patient currently alert and awake and oriented. She does not remember exactly how she fell. Denies any headache. Vision is okay. Hard of hearing. No runny nose. Has some sore throat. No cough. No fevers. Had transient chest pain in the ER. Currently denies any chest pain. Currently denies shortness of breath. Has back pain. Has pain in left fingers. No abdominal pain. When she fell she had an episode of vomiting. She has a walker and cane at home but she does not use them as per the . Appetite is okay. No difficulty swallowing. She has some shakiness of the chin but states that happens when she is anxious. Past medical history. As mentioned above. Past surgical history. Colonoscopy. Cystoscopy. EGD. Laparoscopic cholecystectomy. Ligation ordered. Bilateral cataract surgeries. Social history. . Quit smoking 2012. Smoked half pack a day for 42 years. No alcohol use. No drug use. Family history. Brother had CAD. Father had CAD. Principal Dx & Hospital Course #1 = Principal Diagnosis (1) Fall: per admitting service notes with addendum: 83-year-old female with past medical history significant for type 2 diabetes, diabetic neuropathy, hypertension, statin intolerance, generalized anxiety disorder, depression who comes because of fall. As per he saw the patient around 1:30 PM working on her iPad. Around 3 PM he got a call from his and she was seemed confused so came to the house. And found her on the floor. Apparently she also called 911. EMS was able to get her up and bring to the hospital. Patient currently alert and awake and oriented. She does not remember exactly how she fell. Denies any headache. Vision is okay. Hard of hearing. No runny nose. Has some sore throat. No cough. No fevers. Had transient chest pain in the ER. Currently denies any chest pain. Currently denies shortness of breath. Has back pain. Has pain in left fingers. No abdominal pain. When she fell she had an episode of vomiting. She has a walker and cane at home but she does not use them as per the . Appetite is okay. No difficulty swallowing. She has some shakiness of the chin but states that happens when she is anxious. Possible metabolic encephalopathy Fall Imaging shows sacral fractures Pain control Ortho consult- conservative management for now PT/OT Possible syncope Patient does not remember how she fell Neuro work up: Brain MRI no acute CVA EEG pending Cardiac workup: Echocardiogram unrevealing, EF 65 to 70%, mild concentric LVH, aortic valve sclerosis mild without significant aortic valvular stenosis, mild tricuspid regurg Telemetry unrevealing so far Orthostasis Orthostatic vital signs pending UTI Possibly contributing Urine culture: Gram-negative bacilli Ceftriaxone IV Diabetes Continue Lantus Sliding scale Will monitor Hypertension Lisinopril Will monitor GERD Omeprazole Hypothyroidism On Synthyroid GERD anxiety disorder Depression Lexapro Ativan as needed DVT prophylaxis Heparin subcu Disposition PT OT evaluation Lives with her plan of care discussed with patient and her in detail and at length all questions answered they are understanding, agreeable, comfortable with the plan of care Updated Medication List Medication Instructions Recorded Confirmed Type metformin 1,000 mg tablet 1,000 mg PO BIDM 08/29/21 12/31/23 History escitalopram oxalate 10 mg tablet 10 mg PO QAM 10/19/21 12/31/23 History levothyroxine 50 mcg tablet 50 mcg PO DAILYBB 10/19/21 12/31/23 History lisinopril 5 mg tablet 5 mg PO QAM 10/19/21 12/31/23 History omeprazole 20 mg capsule,delayed 20 mg PO DAILYBB 10/19/21 12/31/23 History release vitamins A,C,D-ilms-kqvdoo 2,148 2 tab PO QDL 10/19/21 12/31/23 History mcg-113 mg-45 mg-17.4 mg tablet (PreserVision AREDS) repaglinide 2 mg tablet See Rx Instructions .Route .COMPLEX 04/18/23 12/31/23 History diclofenac sodium 1 % topical gel 4 g topical BID PRN PAIN, AFFECTED 12/31/23 12/31/23 History AREA dulaglutide 1.5 mg/0.5 mL 1.5 mg subcut WK 12/31/23 12/31/23 History subcutaneous pen injector (Trulicity) insulin degludec 100 unit/mL (3 28 unit subcut QAM 12/31/23 12/31/23 History mL) subcutaneous pen (Tresiba FlexTouch U-100 insulin) nitroglycerin 0.4 mg sublingual 0.4 mg sublingual DIRECTED PRN 12/31/23 12/31/23 History tablet (Nitrostat) CHEST PAIN/SEVERE REFLUX pioglitazone 15 mg tablet 15 mg PO QAM 12/31/23 12/31/23 History lidocaine 4 % topical patch 1 patch topical DAILY #10 ea 01/04/24 Rx nitrofurantoin 100 mg PO Q12H 2 days #4 caps 01/04/24 Rx monohydrate/macrocrystals 100 mg capsule Hospital Stay Data Consultations 12/31/23 19:18 ED Decision to Admit Stat 01/01/24 10:34 Consult Orthopedic Surgery Routine 01/03/24 19:30 Consult Behavioral Health Liaison Routine Diagnostic Imagining Performed 12/31/23 15:39 CT abd pelvis IV con only Stat CT cervical spine wo con Stat CT chest diagnostic w con Stat CT face [CT facial bones wo con] Stat CT head/brain wo con Stat 01/01/24 17:31 MRI Brain [MR brain wo con] Routine Pending Results Patient Have Any Pending Studies at Discharge: Yes Discharge Instructions Given to Patient (Per Discharging Provider) PLEASE REFER TO YOUR NEW MEDICATION LIST AND FOLLOW INSTRUCTIONS CAREFULLY. YOUR NEW MEDICATIONS INCLUDE: Macrobid-antibiotic for UTI Lidoderm patch-for low back pain You can use Tylenol 650 mg every 4-6 hours as needed for pain. Do not exceed Tylenol 3000 mg/day. Take a probiotic daily. PLEASE CALL YOUR PRIMARY CARE PHYSICIAN OR RETURN TO THE ER IF WITH WORSENING OF SYMPTOMS, INCLUDING Fevers or chills, abdominal pain, nausea or vomiting, problems with urination, Worsening low back pain, difficulty ambulating, weakness or numbness of the legs, etc. FOLLOW UP WITH PRIMARY CARE PHYSICIAN OUTLINED ABOVE.
--- NOTE | 2024-01-05 18:45 | Electrocardiogram Report ---
Test Reason : Blood Pressure : / mmHG Vent. Rate : 078 BPM Atrial Rate : 000 BPM P-R Int : 000 ms QRS Dur : 078 ms QT Int : 374 ms P-R-T Axes : 000 -04 050 degrees QTc Int : 426 ms Poor data quality, interpretation may be adversely affected Sinus rhythm T wave abnormality, consider lateral ischemia Abnormal ECG When compared with ECG of 31-DEC-2023 19:26, (unconfirmed) T wave inversion now evident in Anterolateral leads QT has shortened Confirmed by Kaushik Loyd ([id number]) on 01/05/2024 6:45:07 PM Referred By: REFERRED SELF Confirmed By:Kaushik Loyd
== END 2024-01-04 13:39 | disposition home health service (06) | DRG 689 ==
LOC: ED 15:20 → EDINP 20:31 → SUATTDRO 20:31 → 2N 01-01 15:14